=== PATIENT | female | born 1945 | race African-American/Black ===

== ENCOUNTER 2016-05-23 11:53 | Inpatient (IN) | payer MEDICARE, MEDICAID ==
[~2016-05-23] VITALS: Ht 157.5 cm; Wt 67.6 kg
[~2016-05-23 11:53] MED LIST: AMLODIPINE BESYL5 MG ORAL; APRESOLINE50 MG ORAL; ASPIRIN EC81 MG ORAL; ATIVAN1 MG ORAL; AUGMENTIN 875-1 EAC1 ORAL; CATAPRES0.1 MG ORAL; CLONIDINE 0.2M0.2 MG GT; DILAUDID2 MG ORAL; DIOVAN160 MG ORAL; HYDRALAZINE HC100 MG PO; HYDRALAZINE HCL10 MG ORAL; HYDROCHLOROTH12.5 M2 ORAL; HYDROCHLOROTHIA25 MG ORAL; HYDROCODON-ACE1 EAC4 ORAL; JANUVIA25 MG ORAL; JANUVIA50 MG PO; LORAZEPAM1 MG ORAL; LOSARTAN POTAS100 MG ORAL; METOPROLOL SUCC25 MG ORAL; METOPROLOL TAR100 MG ORAL; NORVASC10 MG ORAL; NORVASC2.5 MG ORAL; NORVASC5 MG ORAL; REGLAN10 MG ORAL; RENAGEL400 MG ORAL; TRAMADOL HCL50 MG ORAL; UNOBMED; VANCOMYCIN1 GM/2502 IVPB; [UNRECOGNIZED DRUG - REMARK]
--- NOTE | 2016-05-23 12:47 | Emergency Room Report ---
History of Present Illness General Chief Complaint: Upper Extremity Injury Source: Patient Present Illness HPI The patient is a 70-year-old female with a history of end-stage renal disease presenting for right arm shunt swelling. The pt was at dialysis today which was completed and told to come to ER for possible infection of R arm. The pt denies any pain to the area and denies fever, chills, fatigue, dizziness, CP, SOB Allergies: Coded Allergies: No Known Allergies (Verified , 05/25/09) Patient History Past Medical History: see triage record Pertinent Family History: none Last Menstrual Period: na Reviewed Nursing Documentation: PMH: Agreed, PSxH: Agreed Nursing Documentation-PMH Past Medical History: No History, Except For Hx Cardiac Problems: Yes - Acute coronary syndrome Hx Hypertension: Yes Hx Pacemaker: No Hx Asthma: No Hx COPD: No Hx Diabetes: Yes Hx Cancer: No Hx Gastrointestinal Problems: Yes Hx Dialysis: Yes Hx Neurological Problems: Yes Hx Cerebrovascular Accident: No - KIDNEY FAILURE Hx Transient Ischemic Attacks: Yes Hx Seizures: No Hx Dizziness: Yes Hx Syncope: Yes Hx Headaches: Yes Hx Weakness: Yes - BILATERAL LOWER EXTREMITIES Hx Fatigue: Yes Hx Neurologic Surgery: No Hx Brain Shunt: No Review of Systems All Other Systems: negative except mentioned in HPI Physical Exam Vital Signs Date Time Temp Pulse Resp B/P Pulse Ox O2 Delivery O2 Flow Rate FiO2 05/23/16 12:04 97.5 103 22 191/93 94 Room Air Sp02 EP Interpretation: reviewed, normal General Appearance: no apparent distress, alert, GCS 15, non-toxic Head: normocephalic, atraumatic Eyes: bilateral eye PERRL, bilateral eye normal inspection ENT: hearing grossly normal, normal pharynx, no angioedema, normal voice Neck: full range of motion, supple/symm/no masses Respiratory: chest non-tender, lungs clear, normal breath sounds, speaking full sentences Cardiovascular #1: regular rate, rhythm, no edema Gastrointestinal: normal bowel sounds, non tender, soft, non-distended, no guarding, no rebound Musculoskeletal: back normal, gait/station normal, normal range of motion, non- tender Neurologic: alert, oriented x3, responsive, motor strength/tone normal, sensory intact, speech normal Psychiatric: judgement/insight normal, memory normal, mood/affect normal, no suicidal/homicidal ideation Skin: warm/dry, well hydrated, normal turgor, other - R arm: shunt in place. + thrill. Erythema and edema surround shunt Medical Decision Making PA Attestation Dr. Voss is my supervising physician. Patient management was discussed with my supervising physician Diagnostic Impression: Primary Impression: Cellulitis ER Course The patient is a 70-year-old female with a history of end-stage renal disease presenting for right arm shunt swelling. The pt was at dialysis today which was completed and told to come to ER for possible infection of R arm. The pt denies any pain to the area and denies fever, chills, fatigue, dizziness, CP, SOB Ddx considered include but not limited to Cellulitis, DVT, abscess PE: Afebrile. NAD R arm: shunt in place. + thrill. Erythema and edema surround shunt. SILT. TTP distal to shunt. Labs: CBC: No leukocytosis. Mild anemia. CMP consistent with ESRD. Unremarkable. Cardiac enzymes negative Venous duplex unremarkable. CXR unremarkable. Shunt site will be cultured. Pt given unasyn and will be admitted in stable condition Laboratory Tests Test 05/23/16 13:40 White Blood Count 2.9 K/UL (4.8-10.8) L Red Blood Count 3.35 M/UL (4.20-5.40) L Hemoglobin 9.7 G/DL (12.0-16.0) L Hematocrit 32.6 % (37.0-47.0) L Mean Corpuscular Volume 97 FL (80-99) Mean Corpuscular Hemoglobin 28.9 PG (27.0-31.0) Mean Corpuscular Hemoglobin Concent 29.7 G/DL (32.0-36.0) L Red Cell Distribution Width 19.3 % (11.6-14.8) H Platelet Count 125 K/UL (150-450) L Mean Platelet Volume 7.7 FL (6.5-10.1) Neutrophils (%) (Auto) % (45.0-75.0) Lymphocytes (%) (Auto) % (20.0-45.0) Monocytes (%) (Auto) % (1.0-10.0) Eosinophils (%) (Auto) % (0.0-3.0) Basophils (%) (Auto) % (0.0-2.0) Differential Total Cells Counted 100 Neutrophils % (Manual) 61 % (45-75) Lymphocytes % (Manual) 26 % (20-45) Monocytes % (Manual) 11 % (1-10) H Eosinophils % (Manual) 1 % (0-3) Basophils % (Manual) 0 % (0-2) Band Neutrophils 1 % (0-8) Platelet Estimate Decreased L Platelet Morphology Normal Hypochromasia 1+ Anisocytosis 1+ Sodium Level 139 mEQ/L (135-145) Potassium Level 3.9 mEQ/L (3.4-4.9) Chloride Level 98 mEQ/L (98-107) Carbon Dioxide Level 24 mEQ/L (20-30) Anion Gap 17 (5-15) H Blood Urea Nitrogen 12 mg/dL (7-23) Creatinine 3.8 mg/dL (0.5-0.9) H Estimate Glomerular Filtration Rate 14.2 mL/min (>60) Glucose Level 91 mg/dL (74-106) Lactic Acid Level 1.00 mmol/L (0.66-2.22) Calcium Level 9.6 mg/dL (8.6-10.2) Total Bilirubin 0.6 mg/dL (0.0-1.2) Aspartate Amino Transferase (AST) 19 U/L (5-40) Alanine Aminotransferase (ALT) 7 U/L (3-33) Alkaline Phosphatase 80 U/L (35-104) Total Creatine Kinase 37 U/L (26-140) Creatine Kinase MB < 1.5 ng/mL (< 3.8) Creatine Kinase MB Relative Index Troponin I < 0.30 ng/mL (<=0.30) Total Protein 7.3 g/dL (6.6-8.7) Albumin 4.1 g/dL (3.5-5.2) Globulin 3.2 g/dL Albumin/Globulin Ratio 1.2 (1.0-2.7) Lab Results Impression CBC: No leukocytosis. Mild anemia. CMP consistent with ESRD. Unremarkable. Cardiac enzymes negative EKG Diagnostic Results EP Interpretation: NSR. Rate: normal - 89 Rhythm: NSR ST Segments: no acute changes ASA given to the pt in ED: No PA Scribe Text EKG was reviewed and read with my supervising physician. No acute ST segment changes are seen. QT is prolonged. Normal rate and rhythm. Chest X-Ray Diagnostic Results EP Interpretation: Yes Findings: no consolidation, no effusion, no pneumothorax Number of Views: 1 PA Scribe Text I am acting as scribe for my supervising physician. My supervising physician's interpretation of the chest xrays are there is no consolidation, no effusion, no acute cardiopulmonary disease, no pneumothorax Last Vital Signs Date Time Temp Pulse Resp B/P Pulse Ox O2 Delivery O2 Flow Rate FiO2 05/23/16 12:04 97.5 103 22 191/93 94 Room Air Status: improved Disposition: ADMITTED INPATIENT Condition: Improved NOLAN HENDRICKS May 23, 2016 12:46
[2016-05-23 13:53] LABS: MEAN CORPUSCULAR HEMOGLOBIN 28.9 PG (27.0-31.0); MEAN CORPUSCULAR HGB CONC 29.7 G/DL (32.0-36.0); MEAN CORPUSCULAR VOLUME 97 FL (80-99); MEAN PLATELET VOLUME 7.7 FL (6.5-10.1); PLATELET COUNT 125 K/UL (150-450); RED BLOOD COUNT 3.35 M/UL (4.20-5.40); RED CELL DISTRIBUTION WIDTH 19.3 % (11.6-14.8); WHITE BLOOD COUNT 2.9 K/UL (4.8-10.8)
[2016-05-23 14:08] LABS: ALANINE AMINOTRANSFERASE 7 U/L (3-33); ALBUMIN/GLOBULIN RATIO 1.2 (1.0-2.7); ANION GAP 17 (5-15); ASPARTATE AMINO TRANSFERASE 19 U/L (5-40); CALCIUM 9.6 mg/dL (8.6-10.2); CARBON DIOXIDE 24 mEQ/L (20-30); CHLORIDE 98 mEQ/L (98-107); CREATININE 3.8 mg/dL (0.5-0.9); GLOMERULAR FILTRATION RATE 14.2 mL/min (>60); HEMOLYSIS 5; POTASSIUM 3.9 mEQ/L (3.4-4.9); SODIUM 139 mEQ/L (135-145); TOTAL PROTEIN 7.3 g/dL (6.6-8.7)
[2016-05-23 14:09] LABS: ANISOCYTOSIS 1+; BAND NEUTROPHILS % (MANUAL) 1 % (0-8); BASOPHILS % (MANUAL) 0 % (0-2); EOSINOPHILS % (MANUAL) 1 % (0-3); HYPOCHROMASIA 1+; LYMPHOCYTES % (MANUAL) 26 % (20-45); NEUTROPHILS % (MANUAL) 61 % (45-75); PLATELET ESTIMATE DECREASED; PLATELET MORPHOLOGY NORMAL; TOTAL CELLS COUNTED 100; TROPONIN I < 0.30 ng/mL (<=0.30)
[2016-05-23 14:14] VITALS: BP 171/80
[2016-05-23 14:18] LABS: CKMB < 1.5 ng/mL (< 3.8)
[2016-05-23] MEDS ORDERED: UNOBMED (14:29)
[2016-05-23] MEDS ORDERED: HYDROCHLOROTHIA50 MG ORAL (14:29)
--- NOTE | 2016-05-23 14:55 | Diagnostic Imaging Report ---
Indication: Chest Pain Comparison: 08/28/15 A single view chest radiograph was obtained. Findings: There is a stent projected over the SVC. Surgical clips in the right arm. No definite infiltrate or pulmonary vascular congestion identified. The heart is enlarged. The aorta is mildly enlarged consistent with atherosclerotic vascular disease. The bones are osteopenic. Impression: No acute disease
[2016-05-23 15:40] VITALS: BP 162/81
[2016-05-23] MEDS ORDERED: Unasyn 3gm Inj IV ONE (15:45)
[2016-05-23] MEDS ORDERED: Ampicillin/Sulbactam Sod 3 GM in NS 100 ML IVPB ONE (16:00)
[2016-05-23 18:25] VITALS: BP 169/82
[2016-05-23 18:41] VITALS: BP 168/78
[2016-05-23 19:09] VITALS: BP 133/69
--- NOTE | 2016-05-23 19:38 | Cardiac Electrophysiology PN ---
Subjective Subjective [id number] Objective Last 24 Hour Vital Signs Date Time Temp Pulse Resp B/P Pulse Ox O2 Delivery O2 Flow Rate FiO2 05/23/16 19:09 96.6 65 18 133/69 94 Room Air 05/23/16 18:41 98.5 91 14 168/78 91 Room Air 05/23/16 18:25 90 14 169/82 91 Room Air 05/23/16 18:25 98.5 90 14 169/82 91 Room Air 05/23/16 18:16 98.5 86 14 171/80 95 Room Air 05/23/16 15:40 98.5 82 14 162/81 95 Room Air 05/23/16 14:14 98.5 86 14 171/80 95 Room Air 05/23/16 12:04 97.5 103 22 191/93 94 Room Air Laboratory Tests Test 05/23/16 13:40 White Blood Count 2.9 K/UL (4.8-10.8) L Red Blood Count 3.35 M/UL (4.20-5.40) L Hemoglobin 9.7 G/DL (12.0-16.0) L Hematocrit 32.6 % (37.0-47.0) L Mean Corpuscular Volume 97 FL (80-99) Mean Corpuscular Hemoglobin 28.9 PG (27.0-31.0) Mean Corpuscular Hemoglobin Concent 29.7 G/DL (32.0-36.0) L Red Cell Distribution Width 19.3 % (11.6-14.8) H Platelet Count 125 K/UL (150-450) L Mean Platelet Volume 7.7 FL (6.5-10.1) Neutrophils (%) (Auto) % (45.0-75.0) Lymphocytes (%) (Auto) % (20.0-45.0) Monocytes (%) (Auto) % (1.0-10.0) Eosinophils (%) (Auto) % (0.0-3.0) Basophils (%) (Auto) % (0.0-2.0) Differential Total Cells Counted 100 Neutrophils % (Manual) 61 % (45-75) Lymphocytes % (Manual) 26 % (20-45) Monocytes % (Manual) 11 % (1-10) H Eosinophils % (Manual) 1 % (0-3) Basophils % (Manual) 0 % (0-2) Band Neutrophils 1 % (0-8) Platelet Estimate Decreased L Platelet Morphology Normal Hypochromasia 1+ Anisocytosis 1+ Sodium Level 139 mEQ/L (135-145) Potassium Level 3.9 mEQ/L (3.4-4.9) Chloride Level 98 mEQ/L (98-107) Carbon Dioxide Level 24 mEQ/L (20-30) Anion Gap 17 (5-15) H Blood Urea Nitrogen 12 mg/dL (7-23) Creatinine 3.8 mg/dL (0.5-0.9) H Estimat Glomerular Filtration Rate 14.2 mL/min (>60) Glucose Level 91 mg/dL (74-106) Lactic Acid Level 1.00 mmol/L (0.66-2.22) Calcium Level 9.6 mg/dL (8.6-10.2) Total Bilirubin 0.6 mg/dL (0.0-1.2) Aspartate Amino Transf (AST/SGOT) 19 U/L (5-40) Alanine Aminotransferase (ALT/SGPT) 7 U/L (3-33) Alkaline Phosphatase 80 U/L (35-104) Total Creatine Kinase 37 U/L (26-140) Creatine Kinase MB < 1.5 ng/mL (< 3.8) Creatine Kinase MB Relative Index Troponin I < 0.30 ng/mL (<=0.30) Total Protein 7.3 g/dL (6.6-8.7) Albumin 4.1 g/dL (3.5-5.2) Globulin 3.2 g/dL Albumin/Globulin Ratio 1.2 (1.0-2.7) BRITTA FRASER May 23, 2016 19:38
[2016-05-23] MEDS ORDERED: cloNIDine 0.2mg Tab ORAL PRN (19:45)
[2016-05-23 20:00] VITALS: BP 172/92
[2016-05-23] MEDS ORDERED: Acetaminophen 500mg (ES) tab ORAL PRN (20:15)
[2016-05-23] MEDS: NovoLOG Insulin Flexpen SUBQ SCH (21:00)
--- NOTE | 2016-05-23 23:58 | Consultation ---
DATE OF CONSULTATION: 05/23/2016 CARDIOLOGY CONSULTATION REFERRING PHYSICIAN: Gianni Thompson M.D. REASON FOR CONSULTATION: Accelerated hypertension and arm edema. HISTORY OF PRESENT ILLNESS: The patient is a 70-year-old lady with history of hypertension, end-stage renal disease, on hemodialysis, on Sunday, , and Sunday through her right arm shunt, presented when she was at dialysis and completed dialysis and came to the emergency room right arm. The patient denies any chest pain or palpitation or shortness of breath. In the emergency room, the patient's blood pressure was 191/93 and a Cardiology consultation with management of agitation and accelerated hypertension. EKG in the emergency room showed a sinus rhythm with evidence for prolonged QT with a corrected QT of 503 milliseconds. REVIEW OF SYSTEMS: Review of systems was performed and was negative other than what was mentioned in the history of present illness. PAST MEDICAL HISTORY: Include: 1. Hypertension. 2. Diabetes. 3. End-stage renal disease, on hemodialysis. FAMILY HISTORY: Noncontributory. PHYSICAL EXAMINATION: VITAL SIGNS: Blood pressure was 191/93, pulse is 103, respirations 20, and temperature 97.5. HEAD AND NECK: Showed no JVD. LUNGS: Clear. CARDIOVASCULAR: Shows regular S1 and S2 with no gallop or murmur. ABDOMEN: Soft. EXTREMITIES: She has right arm dialysis line, which is swollen. LABORATORY DATA: Labs show a white count of 2.9, hemoglobin 9.2, hematocrit 32.6, and platelet count of 125,000. Sodium 139, potassium 3.9, BUN of 12, creatinine 3.8, and glucose of 91. ASSESSMENT AND PLAN: 1. Accelerated hypertension. We will resume the patient's antihypertensive medications. Add p.r.n. clonidine to her medical regimen. The patient was on metoprolol 100 mg twice a day, that will be resumed and she is also on 50 mg every eight hours and clonidine 0.1 mg every six hours and Norvasc 10 mg daily. 2. End-stage renal disease, on hemodialysis. 3. Right arm edema, has cellulitis. Antibiotics per infectious disease. 4. Anemia, secondary to renal failure. Thank you very much, Dr. Thompson, for allowing me to participate in the care of this patient. Please do not hesitate to contact me if you have any questions regarding my evaluation. The case was discussed with the patient and nurse on the floor. Sharath Burdick M.D. DR: CATALINA JOB#: [id number] CC:
[2016-05-24 00:18] VITALS: BP 143/74
[2016-05-24] MEDS: HydrALAZINE 50mg tab ORAL SCH ×4 (01:04→19:43)
[2016-05-24] MEDS ORDERED: Zolpidem 5mg tab ORAL PRN (03:15)
[2016-05-24 04:13] VITALS: BP 130/70
[2016-05-24] MEDS: NovoLOG Insulin Flexpen SUBQ SCH ×4 (06:30→22:18)
[2016-05-24] MEDS: Renagel 400mg cap ORAL SCH ×3 (06:55→16:43)
[2016-05-24 07:41] LABS: CALCIUM 9.7 mg/dL (8.6-10.2); CREATININE 5.1 mg/dL (0.5-0.9); GLOMERULAR FILTRATION RATE 10.2 mL/min (>60); POTASSIUM 4.7 mEQ/L (3.4-4.9)
[2016-05-24 07:49] LABS: MEAN CORPUSCULAR HEMOGLOBIN 28.8 PG (27.0-31.0); MEAN CORPUSCULAR HGB CONC 29.5 G/DL (32.0-36.0); MEAN CORPUSCULAR VOLUME 98 FL (80-99); MEAN PLATELET VOLUME 8.3 FL (6.5-10.1); PLATELET COUNT 122 K/UL (150-450); RED CELL DISTRIBUTION WIDTH 18.8 % (11.6-14.8); WHITE BLOOD COUNT 2.3 K/UL (4.8-10.8)
[2016-05-24 08:00] VITALS: BP 130/71
--- NOTE | 2016-05-24 08:58 | Cardiac Electrophysiology PN ---
Assessment/Plan Assessment/Plan 1. Accelerated hypertension. Continue metoprolol 100 mg twice a day, Norvasc 10 mg daily, Hydralazine 50 q6hr, HD and prn Clonidine. 2. End-stage renal disease, on hemodialysis. 3. Right arm edema, has cellulitis. Antibiotics per infectious disease. 4. Anemia, secondary to renal failure. YULI RN Subjective Subjective Alert in NAD. Getting Echo done. Still has diarrhea.Off tele. Objective Last 24 Hour Vital Signs Date Time Temp Pulse Resp B/P Pulse Ox O2 Delivery O2 Flow Rate FiO2 05/24/16 08:41 65 130/71 05/24/16 08:40 65 130/71 05/24/16 08:00 98.1 65 17 130/71 96 Room Air 05/24/16 06:55 130/70 05/24/16 04:13 98.6 62 19 130/70 95 Room Air 05/24/16 01:04 143/74 05/24/16 00:18 98.8 71 17 143/74 97 Room Air 05/23/16 21:58 96 172/92 05/23/16 20:00 96.8 96 20 172/92 97 Room Air 05/23/16 19:09 96.6 65 18 133/69 94 Room Air 05/23/16 18:41 98.5 91 14 168/78 91 Room Air 05/23/16 18:25 90 14 169/82 91 Room Air 05/23/16 18:25 98.5 90 14 169/82 91 Room Air 05/23/16 18:16 98.5 86 14 171/80 95 Room Air 05/23/16 15:40 98.5 82 14 162/81 95 Room Air 05/23/16 14:14 98.5 86 14 171/80 95 Room Air 05/23/16 12:04 97.5 103 22 191/93 94 Room Air Intake and Output 05/23/16 05/24/16 19:00 07:00 Intake Total 100 ml 240 ml Balance 100 ml 240 ml Intake Oral 240 ml IV Total 100 ml # Bowel Movements 2 Laboratory Tests Test 05/23/16 13:40 05/24/16 06:10 White Blood Count 2.9 K/UL (4.8-10.8) L 2.3 K/UL (4.8-10.8) L Red Blood Count 3.35 M/UL (4.20-5.40) L 3.40 M/UL (4.20-5.40) L Hemoglobin 9.7 G/DL (12.0-16.0) L 9.8 G/DL (12.0-16.0) L Hematocrit 32.6 % (37.0-47.0) L 33.3 % (37.0-47.0) L Mean Corpuscular Volume 97 FL (80-99) 98 FL (80-99) Mean Corpuscular Hemoglobin 28.9 PG (27.0-31.0) 28.8 PG (27.0-31.0) Mean Corpuscular Hemoglobin Concent 29.7 G/DL (32.0-36.0) L 29.5 G/DL (32.0-36.0) L Red Cell Distribution Width 19.3 % (11.6-14.8) H 18.8 % (11.6-14.8) H Platelet Count 125 K/UL (150-450) L 122 K/UL (150-450) L Mean Platelet Volume 7.7 FL (6.5-10.1) 8.3 FL (6.5-10.1) Neutrophils (%) (Auto) % (45.0-75.0) % (45.0-75.0) Lymphocytes (%) (Auto) % (20.0-45.0) % (20.0-45.0) Monocytes (%) (Auto) % (1.0-10.0) % (1.0-10.0) Eosinophils (%) (Auto) % (0.0-3.0) % (0.0-3.0) Basophils (%) (Auto) % (0.0-2.0) % (0.0-2.0) Differential Total Cells Counted 100 Neutrophils % (Manual) 61 % (45-75) Pending Lymphocytes % (Manual) 26 % (20-45) Pending Monocytes % (Manual) 11 % (1-10) H Eosinophils % (Manual) 1 % (0-3) Basophils % (Manual) 0 % (0-2) Band Neutrophils 1 % (0-8) Platelet Estimate Decreased L Pending Platelet Morphology Normal Pending Hypochromasia 1+ Anisocytosis 1+ Sodium Level 139 mEQ/L (135-145) 142 mEQ/L (135-145) Potassium Level 3.9 mEQ/L (3.4-4.9) 4.7 mEQ/L (3.4-4.9) Chloride Level 98 mEQ/L (98-107) 101 mEQ/L (98-107) Carbon Dioxide Level 24 mEQ/L (20-30) 25 mEQ/L (20-30) Anion Gap 17 (5-15) H 16 (5-15) H Blood Urea Nitrogen 12 mg/dL (7-23) 18 mg/dL (7-23) Creatinine 3.8 mg/dL (0.5-0.9) H 5.1 mg/dL (0.5-0.9) H Estimat Glomerular Filtration Rate 14.2 mL/min (>60) 10.2 mL/min (>60) Glucose Level 91 mg/dL (74-106) 72 mg/dL (74-106) L Lactic Acid Level 1.00 mmol/L (0.66-2.22) Calcium Level 9.6 mg/dL (8.6-10.2) 9.7 mg/dL (8.6-10.2) Total Bilirubin 0.6 mg/dL (0.0-1.2) Aspartate Amino Transf (AST/SGOT) 19 U/L (5-40) Alanine Aminotransferase (ALT/SGPT) 7 U/L (3-33) Alkaline Phosphatase 80 U/L (35-104) Total Creatine Kinase 37 U/L (26-140) Creatine Kinase MB < 1.5 ng/mL (< 3.8) Creatine Kinase MB Relative Index Troponin I < 0.30 ng/mL (<=0.30) Total Protein 7.3 g/dL (6.6-8.7) Albumin 4.1 g/dL (3.5-5.2) Globulin 3.2 g/dL Albumin/Globulin Ratio 1.2 (1.0-2.7) Thyroid Stimulating Hormone (TSH) 3.540 uIU/mL (0.300-4.500) Objective HEAD AND NECK: Showed no JVD. LUNGS: Clear. CARDIOVASCULAR: Shows regular S1 and S2 with no gallop or murmur. ABDOMEN: Soft. EXTREMITIES: She has right arm dialysis line is swollen. BRITTA FRASER May 24, 2016 08:57
[2016-05-24 09:11] LABS: ANISOCYTOSIS 1+; BAND NEUTROPHILS % (MANUAL) 0 % (0-8); BASOPHILS % (MANUAL) 0 % (0-2); EOSINOPHILS % (MANUAL) 1 % (0-3); HYPOCHROMASIA 1+; LYMPHOCYTES % (MANUAL) 29 % (20-45); NEUTROPHILS % (MANUAL) 65 % (45-75); PLATELET ESTIMATE ADEQUATE; PLATELET MORPHOLOGY NORMAL; TOTAL CELLS COUNTED 100
[2016-05-24] MEDS ORDERED: Loperamide 2mg cap ORAL PRN (10:30)
[2016-05-24] MEDS ORDERED: HYDROmorphone 1mg/ml Carpuject IVP PRN (10:30)
--- NOTE | 2016-05-24 11:22 | History and Physical ---
History of Present Illness General Date patient seen: May 24, 2016 Reason for Hospitalization: Right Upper Extremity cellulitis Present Illness HPI Pt is a 70 yr old AA female who presented to the ED with right arm swelling, after hemodialysis yesterday through the right arm shunt. History includes hypertension, end-stage renal disease, on hemodialysis, every Sunday, , and Saturdays. The patient denies any chest pain or palpitation or shortness of breath, denies fever or chills, no N/ V. Allergies: Coded Allergies: No Known Allergies (Verified , 05/25/09) Medication History Scheduled Amlodipine Besylate (Norvasc), 10 MG ORAL DAILY Clonidine Hcl* (Catapres*), Unknown Dose ORAL EVERY 6 HOURS, (Reported) Hydralazine HCl (Hydralazine HCl), 50 MG ORAL Q8HR Hydrochlorothiazide* (Hydrochlorothiazide*), 50 MG ORAL DAILY, (Reported) Metoprolol Tartrate* (Metoprolol Tartrate*), 50 MG ORAL Q12HR Sevelamer HCl (Renagel), 400 MG ORAL THREE TIMES A DAY, (Reported) Miscellaneous Medications Unable to Obtain Medications (Unable To Obtain Meds), (Reported) Patient History History Provided By: Patient, Medical Record Healthcare decision maker Resuscitation status Do Not Resuscitate Advanced Directive on File Past Medical/Surgical History Past Medical/Surgical History: (1) Hypertension (2) ESRD (end stage renal disease) on dialysis (3) Hypertension (4) ACS (acute coronary syndrome) Social History Social History: (1) Non-smoker (2) No illicit drug use (3) No history of alcohol use Review of Systems All Other Systems: negative except mentioned in HPI Physical Exam General Appearance: no apparent distress, alert Lines, tubes and drains: peripheral HEENT: normocephalic, atraumatic Neck: normal alignment, supple, normal inspection Respiratory/Chest: lungs clear, normal breath sounds, no respiratory distress, no accessory muscle use Cardiovascular/Chest: normal rate, regular rhythm, no JVD Abdomen: non tender, soft, no organomegaly, no mass Extremities: normal range of motion, severe edema, other - right upper arm edema Skin Exam: normal pigmentation, warm/dry Neurologic: alert, oriented x 3, responsive, normal mood/affect Last 24 Hour Vital Signs Date Time Temp Pulse Resp B/P Pulse Ox O2 Delivery O2 Flow Rate FiO2 1/11/17 08:41 65 130/71 05/24/16 08:40 65 130/71 05/24/16 08:00 98.1 65 17 130/71 96 Room Air 05/24/16 06:55 130/70 05/24/16 04:13 98.6 62 19 130/70 95 Room Air 05/24/16 01:04 143/74 05/24/16 00:18 98.8 71 17 143/74 97 Room Air 05/23/16 21:58 96 172/92 05/23/16 20:00 96.8 96 20 172/92 97 Room Air 05/23/16 19:09 96.6 65 18 133/69 94 Room Air 05/23/16 18:41 98.5 91 14 168/78 91 Room Air 05/23/16 18:25 90 14 169/82 91 Room Air 05/23/16 18:25 98.5 90 14 169/82 91 Room Air 05/23/16 18:16 98.5 86 14 171/80 95 Room Air 05/23/16 15:40 98.5 82 14 162/81 95 Room Air 05/23/16 14:14 98.5 86 14 171/80 95 Room Air 05/23/16 12:04 97.5 103 22 191/93 94 Room Air Intake and Output 05/23/16 05/24/16 19:00 07:00 Intake Total 100 ml 240 ml Balance 100 ml 240 ml Intake Oral 240 ml IV Total 100 ml # Bowel Movements 2 Laboratory Tests Test 05/23/16 13:40 05/24/16 06:10 White Blood Count 2.9 K/UL (4.8-10.8) L 2.3 K/UL (4.8-10.8) L Red Blood Count 3.35 M/UL (4.20-5.40) L 3.40 M/UL (4.20-5.40) L Hemoglobin 9.7 G/DL (12.0-16.0) L 9.8 G/DL (12.0-16.0) L Hematocrit 32.6 % (37.0-47.0) L 33.3 % (37.0-47.0) L Mean Corpuscular Volume 97 FL (80-99) 98 FL (80-99) Mean Corpuscular Hemoglobin 28.9 PG (27.0-31.0) 28.8 PG (27.0-31.0) Mean Corpuscular Hemoglobin Concent 29.7 G/DL (32.0-36.0) L 29.5 G/DL (32.0-36.0) L Red Cell Distribution Width 19.3 % (11.6-14.8) H 18.8 % (11.6-14.8) H Platelet Count 125 K/UL (150-450) L 122 K/UL (150-450) L Mean Platelet Volume 7.7 FL (6.5-10.1) 8.3 FL (6.5-10.1) Neutrophils (%) (Auto) % (45.0-75.0) % (45.0-75.0) Lymphocytes (%) (Auto) % (20.0-45.0) % (20.0-45.0) Monocytes (%) (Auto) % (1.0-10.0) % (1.0-10.0) Eosinophils (%) (Auto) % (0.0-3.0) % (0.0-3.0) Basophils (%) (Auto) % (0.0-2.0) % (0.0-2.0) Differential Total Cells Counted 100 100 Neutrophils % (Manual) 61 % (45-75) 65 % (45-75) Lymphocytes % (Manual) 26 % (20-45) 29 % (20-45) Monocytes % (Manual) 11 % (1-10) H 5 % (1-10) Eosinophils % (Manual) 1 % (0-3) 1 % (0-3) Basophils % (Manual) 0 % (0-2) 0 % (0-2) Band Neutrophils 1 % (0-8) 0 % (0-8) Platelet Estimate Decreased L Adequate Platelet Morphology Normal Normal Hypochromasia 1+ 1+ Anisocytosis 1+ 1+ Sodium Level 139 mEQ/L (135-145) 142 mEQ/L (135-145) Potassium Level 3.9 mEQ/L (3.4-4.9) 4.7 mEQ/L (3.4-4.9) Chloride Level 98 mEQ/L (98-107) 101 mEQ/L (98-107) Carbon Dioxide Level 24 mEQ/L (20-30) 25 mEQ/L (20-30) Anion Gap 17 (5-15) H 16 (5-15) H Blood Urea Nitrogen 12 mg/dL (7-23) 18 mg/dL (7-23) Creatinine 3.8 mg/dL (0.5-0.9) H 5.1 mg/dL (0.5-0.9) H Estimat Glomerular Filtration Rate 14.2 mL/min (>60) 10.2 mL/min (>60) Glucose Level 91 mg/dL (74-106) 72 mg/dL (74-106) L Lactic Acid Level 1.00 mmol/L (0.66-2.22) Calcium Level 9.6 mg/dL (8.6-10.2) 9.7 mg/dL (8.6-10.2) Total Bilirubin 0.6 mg/dL (0.0-1.2) Aspartate Amino Transf (AST/SGOT) 19 U/L (5-40) Alanine Aminotransferase (ALT/SGPT) 7 U/L (3-33) Alkaline Phosphatase 80 U/L (35-104) Total Creatine Kinase 37 U/L (26-140) Creatine Kinase MB < 1.5 ng/mL (< 3.8) Creatine Kinase MB Relative Index Troponin I < 0.30 ng/mL (<=0.30) Total Protein 7.3 g/dL (6.6-8.7) Albumin 4.1 g/dL (3.5-5.2) Globulin 3.2 g/dL Albumin/Globulin Ratio 1.2 (1.0-2.7) Thyroid Stimulating Hormone (TSH) 3.540 uIU/mL (0.300-4.500) Microbiology Date/Time Source Procedure Growth Status 05/23/16 15:23 Wound Gram Stain - Final Resulted 05/23/16 15:23 Wound Wound Culture Pending Resulted Height (Feet): 5 Height (Inches): 2.00 Weight (Pounds): 110 Medications Current Medications Medications (Trade) Dose Ordered Sig/Celine Route PRN Reason Start Time Stop Time Status Last Admin Dose Admin Acetaminophen (Tylenol) 500 mg QID PRN ORAL Mild Pain/Temp > 100.5 05/23/16 20:15 06/22/16 20:14 05/23/16 21:58 Amlodipine Besylate (Norvasc) 10 mg DAILY ORAL 05/24/16 09:00 06/23/16 08:59 05/24/16 08:40 Clonidine HCl (Catapres) 0.2 mg EVERY 2 HOURS PRN ORAL hypertension 05/23/16 19:45 06/22/16 19:44 Dextrose (Dextrose 50%) STAT PRN IV Hypoglycemia 05/23/16 20:15 06/22/16 20:14 Hydralazine HCl (Apresoline) 50 mg Q6HR ORAL 05/24/16 00:00 06/23/16 00:00 05/24/16 06:55 Hydromorphone HCl (Dilaudid) 1 mg Q4H PRN IVP For Pain 05/24/16 10:30 05/31/16 10:29 Insulin Aspart (NovoLOG) BEFORE MEALS AND HS SUBQ 05/23/16 21:00 06/22/16 20:59 Loperamide HCl (Imodium) 4 mg Q6H PRN ORAL diarrhea 05/24/16 10:30 06/23/16 10:29 Metoprolol Tartrate (Lopressor) 100 mg EVERY 12 HOURS ORAL 05/23/16 21:00 06/22/16 20:59 05/24/16 08:41 Sevelamer HCl (Renagel) 400 mg TIAC ORAL 05/24/16 06:30 06/23/16 06:29 05/24/16 06:55 Zolpidem Tartrate (Ambien) 5 mg HSPRN PRN ORAL Insomnia 05/24/16 03:15 06/23/16 03:14 Objective Narrative Procedure: XRAY Chest 1v Indication: Chest Pain Comparison: 08/28/15 A single view chest radiograph was obtained. Findings: There is a stent projected over the SVC. Surgical clips in the right arm. No definite infiltrate or pulmonary vascular congestion identified. The heart is enlarged. The aorta is mildly enlarged consistent with atherosclerotic vascular disease. The bones are osteopenic. Impression: No acute disease Assessment/Plan Problem List: (1) AV fistula infection ICD Codes: T82.7XXA - Infect/inflm react d/t oth cardi/vasc dev/implnt/grft, init SNOMED: 384459748 (2) Cellulitis ICD Codes: L03.90 - Cellulitis, unspecified SNOMED: 802532961 Qualifiers: (3) ESRD (end stage renal disease) on dialysis ICD Codes: N18.6 - End stage renal disease; Z99.2 - Dependence on renal dialysis SNOMED: 002277925 (4) Accelerated hypertension ICD Codes: I10 - Essential (primary) hypertension SNOMED: 20441046 (5) Thrombocytopenia ICD Codes: D69.6 - Thrombocytopenia, unspecified SNOMED: 959053450 (6) Anemia in chronic kidney disease (CKD) ICD Codes: D63.1 - Anemia in chronic kidney disease; N03.9 - Anemia in chronic kidney disease (CKD) SNOMED: 364414647 Status: stable Assessment/Plan Monitor counts ID consult, will f/u with recs Monitor Vital signs Monitor H&H, transfuse as needed Cardio consult, will f/u with recs Continue home meds Will continue HD T,TH,S pain management Faith Bianchi N.P. May 24, 2016 11:22
[2016-05-24 12:15] VITALS: BP 145/83
[2016-05-24] MEDS: Morphine Sulfate 2mg/ml Inj IVP PRN (13:12)
--- NOTE | 2016-05-24 14:59 | Consultation ---
Consult Note Consult Note ID CONSULT: Dict# [id number] Assessment/Plan ASSESSMENT: 70 y/o female with: // RUE swelling r/o cellulitis, AVF infection - BCx pending - doppler: patent AVF, no stenosis, occlusion, pseudoaneurysm or abscess // Chronic leukopenia / pancytopenia, afebrile // ESRD / HD with RUE AVF // Accelerated HTN // Negative MRSA, VRE screens // NKDA // DNR PLAN: - start empiric IV vancomycin, fortaz d# . Ok to dose with HD, complete as outpt unless BCx positive, will need further w/u ( 05/23 SP unasyn x1 ) - consider vascular eval - f/u cultures - monitor CBC, temperatures - monitor BMP Thanks! Will follow MARLON BYRNES May 24, 2016 14:59
[2016-05-24 16:00] VITALS: BP 156/81
[2016-05-24] MEDS ORDERED: Vancomycin 1gm/D5W 250ml IVPB ONE ×2 (17:00)
[2016-05-24 20:00] VITALS: BP 147/71
--- NOTE | 2016-05-24 21:37 | Cardiology Report ---
APPROVED REPORT EXAM: Two-dimensional and M-mode echocardiogram with Doppler and color Doppler. INDICATION Congestive Heart Failure M-Mode DIMENSIONS IVSd1.8 (0.7-1.1cm)Left Atrium (MM)3.4 (1.6-4.0cm) LVDd3.9 (3.5-5.6cm)Aortic Root3.1 (2.0-3.7cm) PWd1.7 (0.7-1.1cm)Aortic Cusp Exc.1.6 (1.5-2.0cm) LVDs2.7 (2.5-4.0cm) PWs2.0 cm Technically difficult study due to pts position. Normal left ventricular chamber size, systolic function and wall motion to extent visualized. Left ventricular ejection fraction estimated to be 60-65 %. Moderate left ventricular hypertrophy. Anterior Echo-free space, may be due to pericardial fat or effusion. Mild left atrial enlargement. Right cardiac chambers are moderately enlarged. Moderate focal aortic valve sclerosis with adequate cusp excursion. Moderately thickened mitral valve leaflets with normal excursion. Mitral annulus and aortic root calcification. Normal pulmonic valve structure. Normal tricuspid valve structure. IVC dilated at 2.9 cm without physiologic collapse suggestive of RA pressure at least 20 mmHg. A color flow and spectral Doppler study was performed and revealed: Trace aortic regurgitation. Mild mitral regurgitation. Mitral diastolic velocities suggest reduced left ventricular relaxation c/w mild LV diastolic dysfunction (Grade I ). Severe tricuspid regurgitation. Tricuspid systolic velocities suggests peak right ventricular systolic pressure of 99 mmHg, consistent with severe pulmonary hypertension.
--- NOTE | 2016-05-24 21:48 | Consultation ---
DATE OF CONSULTATION: 05/24/2016 INFECTIOUS DISEASE CONSULTATION REQUESTING PHYSICIAN: Gianni Thompson M.D. REASON FOR CONSULTATION: Cellulitis. HISTORY OF PRESENT ILLNESS: This is a 70-year-old female with a history of end-stage renal disease, on dialysis with a right upper extremity fistula referred to emergency room from the dialysis center for right upper extremity swelling. This is fairly acute as per patient. No significant erythema or warmth. Denies fevers or chills. Doppler ultrasound shows a patent fistula and no stenosis occlusion, pseudoaneurysm, or abscess. She has evidence of chronic leukopenia and pancytopenia and is afebrile. Cultures are pending. She has received one dose of Unasyn in the emergency room and ID now consulted to assist in management. PAST MEDICAL HISTORY: 1. Hypertension. 2. End-stage renal disease, on dialysis. 3. Grade 1 diastolic dysfunction. 4. Severe tricuspid regurgitation. 5. Mild pulmonary hypertension. 6. Cardiovascular disease. PAST SURGICAL HISTORY: Right upper extremity AV fistula. MEDICATIONS: 1. Status post Unasyn x1. 2. Norvasc. 3. Renagel. 4. Hydralazine. 5. Metoprolol. ALLERGIES: No known drug allergies. SOCIAL HISTORY: Denies tobacco, alcohol, or illicit drug abuse. FAMILY HISTORY: Noncontributory. REVIEW OF SYSTEMS: As per history of present illness. Ten systems reviewed. All pertinent positives and negatives noted. PHYSICAL EXAMINATION: VITAL SIGNS: Maximum temperature 98.5, blood pressure 145/83, heart rate in the 70s, respiratory rate 17, saturating 96% on room air. GENERAL: No apparent distress. Nontoxic appearing. CARDIOVASCULAR: Regular rate and rhythm. No murmurs. PULMONARY: Clear to auscultation bilaterally. ABDOMEN: Bowel sounds present. Soft, nondistended, and nontender. EXTREMITIES: Right upper extremity swelling. No significant erythema or warmth. LABORATORY DATA: White blood cell count 2.3, hemoglobin 9.8, platelets 122,000. Sodium 142, potassium 4.7, chloride 101, bicarbonate 25, BUN 18, creatinine 5.1. Lactic acid 1. Troponin negative x1. TSH and liver function tests within normal limits. MICROBIOLOGY: 1. 05/23/2016, blood culture pending. 2. 05/23/2016, right upper extremity wound culture no growth to date, Gram-stain negative. IMAGIN05/23/2016, chest x-ray no acute findings. ASSESSMENT: 1. Right upper extremity swelling rule out cellulitis of the arteriovenous fistula infection. Blood cultures are pending. Doppler ultrasounds shows patent AV fistula and no stenosis, occlusion, pseudoaneurysm, or abscess. 2. Chronic leukopenia/pancytopenia, afebrile. 3. End-stage renal disease, on dialysis with right upper extremity arteriovenous fistula. 4. Accelerated hypertension. 5. Negative methicillin-resistant Staphylococcus aureus and vancomycin-resistant Enterococcus screens. 6. No known drug allergies. 7. Do Not Resuscitate. PLAN: 1. Start empiric IV vancomycin and Fortaz day # 1 out of 7. 2. Okay to dose with dialysis. 3. Consider vascular evaluation. 4. Followup cultures. 5. Monitor CBC and temperatures. 6. Monitor BMP. Thank you. We will follow. Ron Perez M.D. DR: Nagi JOB#: [id number] CC: Gianni Thompson M.D.; Fax#: [phone] King M.D; Fax#: [phone]
[2016-05-25 00:09] VITALS: BP 140/81
[2016-05-25] MEDS: HydrALAZINE 50mg tab ORAL SCH ×5 (00:43→23:39)
[2016-05-25 04:06] VITALS: BP 144/66
[2016-05-25] MEDS: NovoLOG Insulin Flexpen SUBQ SCH ×4 (06:30→20:16)
[2016-05-25] MEDS: Renagel 400mg cap ORAL SCH ×3 (06:40→16:53)
[2016-05-25 08:00] VITALS: BP 145/76
[2016-05-25 10:53] LABS: MEAN CORPUSCULAR HEMOGLOBIN 29.5 PG (27.0-31.0); MEAN CORPUSCULAR HGB CONC 31.1 G/DL (32.0-36.0); MEAN CORPUSCULAR VOLUME 95 FL (80-99); MEAN PLATELET VOLUME 7.9 FL (6.5-10.1); PLATELET COUNT 151 K/UL (150-450); RED BLOOD COUNT 3.68 M/UL (4.20-5.40); WHITE BLOOD COUNT 3.3 K/UL (4.8-10.8)
[2016-05-25 11:07] LABS: CALCIUM 9.7 mg/dL (8.6-10.2); CREATININE 6.7 mg/dL (0.5-0.9); GLOMERULAR FILTRATION RATE 7.4 mL/min (>60); POTASSIUM 4.7 mEQ/L (3.4-4.9)
[2016-05-25 11:41] LABS: BAND NEUTROPHILS % (MANUAL) 0 % (0-8); BASOPHILS % (MANUAL) 0 % (0-2); EOSINOPHILS % (MANUAL) 3 % (0-3); LYMPHOCYTES % (MANUAL) 24 % (20-45); NEUTROPHILS % (MANUAL) 65 % (45-75); PLATELET ESTIMATE ADEQUATE; PLATELET MORPHOLOGY NORMAL; TOTAL CELLS COUNTED 100
[2016-05-25 11:42] LABS: ANISOCYTOSIS 2+; HYPOCHROMASIA 1+
[2016-05-25 12:00] VITALS: BP 138/75
--- NOTE | 2016-05-25 13:29 | Infectious Diseases Prog Note ---
Assessment/Plan Assessment/Plan ASSESSMENT: 70 y/o female with: // RUE swelling r/o cellulitis, AVF infection - BCx NGTD - doppler: patent AVF, no stenosis, occlusion, pseudoaneurysm or abscess // Chronic leukopenia / pancytopenia, afebrile // ESRD / HD with RUE AVF // Accelerated HTN // Negative MRSA, VRE screens // NKDA // DNR PLAN: - continue IV vancomycin, fortaz d# . Ok to dose with HD, complete as outpt unless BCx positive, will need further w/u ( 05/23 SP unasyn x1 ) - consider vascular eval - f/u cultures - monitor CBC, temperatures - monitor BMP Subjective Allergies: Coded Allergies: No Known Allergies (Verified , 05/25/09) Subjective remains afebrile. swelling unchanged Objective Vital Signs Last 24 Hour Vital Signs Date Time Temp Pulse Resp B/P Pulse Ox O2 Delivery O2 Flow Rate FiO2 05/25/16 12:00 97.5 17 138/75 93 Room Air 05/25/16 09:00 75 145/76 05/25/16 09:00 75 145/76 05/25/16 08:00 97.3 75 17 145/76 95 Room Air 05/25/16 06:41 142/78 05/25/16 04:06 97.0 71 20 144/66 96 05/25/16 00:43 147/81 05/25/16 00:09 97.0 68 20 140/81 95 Room Air 05/24/16 22:18 74 147/71 05/24/16 20:00 96.4 74 20 147/71 97 Room Air 05/24/16 19:43 156/81 05/24/16 16:00 97.5 72 18 156/81 93 Room Air Height (Feet): 5 Height (Inches): 2.00 Weight (Pounds): 110 General Appearance: no acute distress Respiratory/Chest: no respiratory distress Cardiovascular: normal rate, regular rhythm Abdomen: normal bowel sounds, soft, non tender, non distended Microbiology Date/Time Source Procedure Growth Status 05/23/16 13:40 Blood Blood Culture - Preliminary NO GROWTH AFTER 24 HOURS Resulted 05/23/16 13:30 Blood Blood Culture - Preliminary NO GROWTH AFTER 24 HOURS Resulted 05/23/16 15:23 Wound Gram Stain - Final Resulted 05/23/16 15:23 Wound Wound Culture - Preliminary NO GROWTH AFTER 48 HOURS Resulted 05/23/16 14:11 Nasal Nares MRSA Culture - Final NO METHICILLIN RESISTANT STAPH AUREUS... Complete 05/23/16 14:11 Rectum VRE Culture - Final NO VANCOMYCIN RESISTANT ENTEROCOCCUS ... Complete Laboratory Tests Test 05/25/16 10:35 White Blood Count 3.3 K/UL (4.8-10.8) L Red Blood Count 3.68 M/UL (4.20-5.40) L Hemoglobin 10.9 G/DL (12.0-16.0) L Hematocrit 35.0 % (37.0-47.0) L Mean Corpuscular Volume 95 FL (80-99) Mean Corpuscular Hemoglobin 29.5 PG (27.0-31.0) Mean Corpuscular Hemoglobin Concent 31.1 G/DL (32.0-36.0) L Red Cell Distribution Width 19.0 % (11.6-14.8) H Platelet Count 151 K/UL (150-450) Mean Platelet Volume 7.9 FL (6.5-10.1) Neutrophils (%) (Auto) % (45.0-75.0) Lymphocytes (%) (Auto) % (20.0-45.0) Monocytes (%) (Auto) % (1.0-10.0) Eosinophils (%) (Auto) % (0.0-3.0) Basophils (%) (Auto) % (0.0-2.0) Differential Total Cells Counted 100 Neutrophils % (Manual) 65 % (45-75) Lymphocytes % (Manual) 24 % (20-45) Monocytes % (Manual) 8 % (1-10) Eosinophils % (Manual) 3 % (0-3) Basophils % (Manual) 0 % (0-2) Band Neutrophils 0 % (0-8) Platelet Estimate Adequate Platelet Morphology Normal Hypochromasia 1+ Anisocytosis 2+ Sodium Level 139 mEQ/L (135-145) Potassium Level 4.7 mEQ/L (3.4-4.9) Chloride Level 97 mEQ/L (98-107) L Carbon Dioxide Level 22 mEQ/L (20-30) Anion Gap 20 (5-15) H Blood Urea Nitrogen 24 mg/dL (7-23) H Creatinine 6.7 mg/dL (0.5-0.9) H Estimat Glomerular Filtration Rate 7.4 mL/min (>60) Glucose Level 83 mg/dL (74-106) Calcium Level 9.7 mg/dL (8.6-10.2) Current Medications Medications (Trade) Dose Ordered Sig/Celine Route PRN Reason Start Time Stop Time Status Last Admin Dose Admin Acetaminophen (Tylenol) 500 mg QID PRN ORAL Mild Pain/Temp > 100.5 05/23/16 20:15 06/22/16 20:14 05/23/16 21:58 Amlodipine Besylate (Norvasc) 10 mg DAILY ORAL 05/24/16 09:00 06/23/16 08:59 05/24/16 08:40 Ceftazidime/ Dextrose (Fortaz/D5W 50ml) 55 ml @ 100 mls/hr Q24HRS IVP 05/25/16 18:00 05/31/16 17:59 Clonidine HCl (Catapres) 0.2 mg EVERY 2 HOURS PRN ORAL hypertension 05/23/16 19:45 06/22/16 19:44 Dextrose (Dextrose 50%) STAT PRN IV Hypoglycemia 05/23/16 20:15 06/22/16 20:14 Hydralazine HCl (Apresoline) 50 mg Q6HR ORAL 05/24/16 00:00 06/23/16 00:00 05/25/16 06:41 Insulin Aspart (NovoLOG) BEFORE MEALS AND HS SUBQ 05/23/16 21:00 06/22/16 20:59 Loperamide HCl (Imodium) 4 mg Q6H PRN ORAL diarrhea 05/24/16 10:30 06/23/16 10:29 Metoprolol Tartrate (Lopressor) 100 mg EVERY 12 HOURS ORAL 05/23/16 21:00 06/22/16 20:59 05/24/16 22:18 Morphine Sulfate (Morphine Sulfate) 2 mg Q4H PRN IVP for pain 05/24/16 12:00 05/31/16 11:59 05/24/16 13:12 Sevelamer HCl (Renagel) 400 mg TIAC ORAL 05/24/16 06:30 06/23/16 06:29 05/25/16 11:24 Vancomycin HCl 750 mg/Dextrose 250 ml @ 167 mls/hr ONCE ONCE IVPB 05/26/16 08:00 05/26/16 09:29 Vancomycin HCl 1 ea 1 ea DAILY PRN MISC Per rx protocol 05/24/16 15:15 06/23/16 15:14 Zolpidem Tartrate (Ambien) 5 mg HSPRN PRN ORAL Insomnia 05/24/16 03:15 06/23/16 03:14 MARLON BYRNES May 25, 2016 13:29
--- NOTE | 2016-05-25 15:01 | General Progress Note ---
Assessment/Plan Problem List: (1) Dizziness ICD Codes: R42 - Dizziness and giddiness SNOMED: 914470204 (2) Renal failure (3) Unable to ambulate ICD Codes: R26.2 - Unable to ambulate SNOMED: 255748926 (4) Hypertensive urgency, malignant ICD Codes: I10 - Essential (primary) hypertension SNOMED: 669871528 (5) Dizziness ICD Codes: R42 - Dizziness and giddiness SNOMED: 728257345 (6) ESRD (end stage renal disease) on dialysis ICD Codes: N18.6 - End stage renal disease; Z99.2 - Dependence on renal dialysis SNOMED: 167078233 (7) Diabetes ICD Codes: E11.9 - Diabetes SNOMED: 42826192 (8) Weakness ICD Codes: R53.1 - Weakness SNOMED: 59377980 (9) Cellulitis ICD Codes: L03.90 - Cellulitis, unspecified SNOMED: 197776803 Qualifiers: Status: stable, progressing, tolerating diet Assessment/Plan ot pt diet wound care abx dialysis cbc bmp am Subjective Constitutional: Reports: weakness Allergies: Coded Allergies: No Known Allergies (Verified , 05/25/09) All Systems: reviewed and negative except above Subjective o2nc sleepy Objective Last 24 Hour Vital Signs Date Time Temp Pulse Resp B/P Pulse Ox O2 Delivery O2 Flow Rate FiO2 05/25/16 13:32 138/75 05/25/16 12:00 97.5 17 138/75 93 Room Air 05/25/16 09:00 75 145/76 05/25/16 09:00 75 145/76 05/25/16 08:00 97.3 75 17 145/76 95 Room Air 05/25/16 06:41 142/78 05/25/16 04:06 97.0 71 20 144/66 96 05/25/16 00:43 147/81 05/25/16 00:09 97.0 68 20 140/81 95 Room Air 05/24/16 22:18 74 147/71 05/24/16 20:00 96.4 74 20 147/71 97 Room Air 05/24/16 19:43 156/81 05/24/16 16:00 97.5 72 18 156/81 93 Room Air Intake and Output 05/24/16 05/25/16 19:00 07:00 Intake Total 450 ml 370 ml Balance 450 ml 370 ml Intake Oral 450 ml 120 ml IV Total 250 ml # Voids 1 # Bowel Movements 2 Laboratory Tests 05/25/16 10:35: White Blood Count 3.3L, Red Blood Count 3.68L, Hemoglobin 10.9L, Hematocrit 35.0L, Mean Corpuscular Volume 95, Mean Corpuscular Hemoglobin 29.5, Mean Corpuscular Hemoglobin Concent 31.1L, Red Cell Distribution Width 19.0H, Platelet Count 151, Mean Platelet Volume 7.9, Neutrophils (%) (Auto) , Lymphocytes (%) (Auto) , Monocytes (%) (Auto) , Eosinophils (%) (Auto) , Basophils (%) (Auto) , Differential Total Cells Counted 100, Neutrophils % ( Manual) 65, Lymphocytes % (Manual) 24, Monocytes % (Manual) 8, Eosinophils % ( Manual) 3, Basophils % (Manual) 0, Band Neutrophils 0, Platelet Estimate Adequate, Platelet Morphology Normal, Hypochromasia 1+, Anisocytosis 2+, Sodium Level 139, Potassium Level 4.7, Chloride Level 97L, Carbon Dioxide Level 22, Anion Gap 20H, Blood Urea Nitrogen 24H, Creatinine 6.7H, Estimat Glomerular Filtration Rate 7.4, Glucose Level 83, Calcium Level 9.7 Height (Feet): 5 Height (Inches): 2.00 Weight (Pounds): 110 General Appearance: lethargic EENT: normal ENT inspection Neck: normal alignment Cardiovascular: normal peripheral pulses, normal rate, regular rhythm Respiratory/Chest: chest wall non-tender, lungs clear, normal breath sounds Abdomen: normal bowel sounds, non tender, soft Extremities: normal inspection Edema: no edema noted Arm (L), no edema noted Arm (R), no edema noted Leg (L), no edema noted Leg (R), no edema noted Pedal (L), no edema noted Pedal (R), no edema noted Generalized Neurologic: motor weakness Skin: normal pigmentation, warm/dry ATILIO LOVING May 25, 2016 15:01
[2016-05-25 16:00] VITALS: BP 155/68
--- NOTE | 2016-05-25 16:24 | Cardiac Electrophysiology PN ---
Assessment/Plan Assessment/Plan 1. Accelerated hypertension. On metoprolol 100 mg twice a day, Norvasc 10 mg daily, Hydralazine 50 q6hr, HD and prn Clonidine. 2. End-stage renal disease, on hemodialysis. 3. Right arm edema, has cellulitis. On Antibiotics 4. Anemia, secondary to renal failure. YULI RN Subjective Subjective Alert in NAD.No events overnight. Off tele since admission. Objective Last 24 Hour Vital Signs Date Time Temp Pulse Resp B/P Pulse Ox O2 Delivery O2 Flow Rate FiO2 05/25/16 13:32 138/75 05/25/16 12:00 97.5 17 138/75 93 Room Air 05/25/16 09:00 75 145/76 05/25/16 09:00 75 145/76 05/25/16 08:00 97.3 75 17 145/76 95 Room Air 05/25/16 06:41 142/78 05/25/16 04:06 97.0 71 20 144/66 96 05/25/16 00:43 147/81 05/25/16 00:09 97.0 68 20 140/81 95 Room Air 05/24/16 22:18 74 147/71 05/24/16 20:00 96.4 74 20 147/71 97 Room Air 05/24/16 19:43 156/81 Intake and Output 05/24/16 05/25/16 19:00 07:00 Intake Total 450 ml 370 ml Balance 450 ml 370 ml Intake Oral 450 ml 120 ml IV Total 250 ml # Voids 1 # Bowel Movements 2 Laboratory Tests Test 05/25/16 10:35 White Blood Count 3.3 K/UL (4.8-10.8) L Red Blood Count 3.68 M/UL (4.20-5.40) L Hemoglobin 10.9 G/DL (12.0-16.0) L Hematocrit 35.0 % (37.0-47.0) L Mean Corpuscular Volume 95 FL (80-99) Mean Corpuscular Hemoglobin 29.5 PG (27.0-31.0) Mean Corpuscular Hemoglobin Concent 31.1 G/DL (32.0-36.0) L Red Cell Distribution Width 19.0 % (11.6-14.8) H Platelet Count 151 K/UL (150-450) Mean Platelet Volume 7.9 FL (6.5-10.1) Neutrophils (%) (Auto) % (45.0-75.0) Lymphocytes (%) (Auto) % (20.0-45.0) Monocytes (%) (Auto) % (1.0-10.0) Eosinophils (%) (Auto) % (0.0-3.0) Basophils (%) (Auto) % (0.0-2.0) Differential Total Cells Counted 100 Neutrophils % (Manual) 65 % (45-75) Lymphocytes % (Manual) 24 % (20-45) Monocytes % (Manual) 8 % (1-10) Eosinophils % (Manual) 3 % (0-3) Basophils % (Manual) 0 % (0-2) Band Neutrophils 0 % (0-8) Platelet Estimate Adequate Platelet Morphology Normal Hypochromasia 1+ Anisocytosis 2+ Sodium Level 139 mEQ/L (135-145) Potassium Level 4.7 mEQ/L (3.4-4.9) Chloride Level 97 mEQ/L (98-107) L Carbon Dioxide Level 22 mEQ/L (20-30) Anion Gap 20 (5-15) H Blood Urea Nitrogen 24 mg/dL (7-23) H Creatinine 6.7 mg/dL (0.5-0.9) H Estimat Glomerular Filtration Rate 7.4 mL/min (>60) Glucose Level 83 mg/dL (74-106) Calcium Level 9.7 mg/dL (8.6-10.2) Microbiology Date/Time Source Procedure Growth Status 05/23/16 13:40 Blood Blood Culture - Preliminary NO GROWTH AFTER 24 HOURS Resulted 05/23/16 13:30 Blood Blood Culture - Preliminary NO GROWTH AFTER 24 HOURS Resulted 05/23/16 15:23 Wound Gram Stain - Final Resulted 05/23/16 15:23 Wound Wound Culture - Preliminary NO GROWTH AFTER 48 HOURS Resulted 05/23/16 14:11 Nasal Nares MRSA Culture - Final NO METHICILLIN RESISTANT STAPH AUREUS... Complete 05/23/16 14:11 Rectum VRE Culture - Final NO VANCOMYCIN RESISTANT ENTEROCOCCUS ... Complete Objective HEAD AND NECK: Showed no JVD. LUNGS: Clear. CARDIOVASCULAR: Shows regular S1 and S2 with no gallop or murmur. ABDOMEN: Soft. EXTREMITIES: She has right arm dialysis line is swollen. BRITTA FRASER May 25, 2016 16:24
[2016-05-25] MEDS: Morphine Sulfate 2mg/ml Inj IVP PRN ×2 (17:23→21:39)
[2016-05-25] MEDS ORDERED: Tubing IV Secondary IV ONE (17:43)
[2016-05-25] MEDS ORDERED: [UNRECOGNIZED DRUG - OTHER] IV SCH ×2 (18:00)
[2016-05-25] MEDS ORDERED: CEFTAZIDIME IV SCH ×2 (18:00)
[2016-05-25] MEDS: D5W IVP SCH (18:58)
[2016-05-25] MEDS: CEFTAZIDIME IVP SCH (18:58)
[2016-05-25 20:00] VITALS: BP 133/67
--- NOTE | 2016-05-25 20:33 | Cardiology Report ---
APPROVED REPORT EKG Measurement Heart [id number] Normal sinus rhythm Prolonged QT Abnormal ECG
[2016-05-26] VITALS (7 sets, daily range): BP systolic 124–160; BP diastolic 65–93
[2016-05-26] MEDS: HydrALAZINE 50mg tab ORAL SCH (06:00)
[2016-05-26] MEDS: NovoLOG Insulin Flexpen SUBQ SCH ×4 (06:30→20:44)
[2016-05-26] MEDS: Renagel 400mg cap ORAL SCH ×3 (06:30→16:30)
[2016-05-26] MEDS ORDERED: Vancomycin 750mg/D5W 250ml IVPB ONE ×2 (08:00)
[2016-05-26 08:24] LABS: BASOPHILS % (AUTO) 0.9 % (0.0-2.0); EOSINOPHILS % (AUTO) 1.9 % (0.0-3.0); LYMPHOCYTES % (AUTO) 12.9 % (20.0-45.0); MEAN CORPUSCULAR HEMOGLOBIN 29.4 PG (27.0-31.0); MEAN CORPUSCULAR HGB CONC 30.7 G/DL (32.0-36.0); MEAN CORPUSCULAR VOLUME 96 FL (80-99); MEAN PLATELET VOLUME 8.4 FL (6.5-10.1); MONOCYTES % (AUTO) 12.2 % (1.0-10.0); NEUTROPHILS % (AUTO) 72.1 % (45.0-75.0); PLATELET COUNT 158 K/UL (150-450); RED CELL DISTRIBUTION WIDTH 19.2 % (11.6-14.8); WHITE BLOOD COUNT 4.3 K/UL (4.8-10.8)
--- NOTE | 2016-05-26 08:29 | Nephrology Progress Note ---
Assessment/Plan Problem List: (1) ESRD (end stage renal disease) on dialysis (2) Hypertensive urgency, malignant (3) Weakness (4) Dizziness (5) Diabetes (6) Anemia in chronic kidney disease (CKD) (7) AV fistula infection Plan vasc surg eval. HD as scheduled. monitor labs. Subjective Subjective late entry for 05/25. no new c/o Objective Objective Last 24 Hour Vital Signs Date Time Temp Pulse Resp B/P Pulse Ox O2 Delivery O2 Flow Rate FiO2 05/26/16 04:00 97.5 76 16 160/88 97 Nasal Cannula 2.0 05/26/16 00:00 97.2 70 16 142/80 Nasal Cannula 2.0 99 05/25/16 23:39 142/80 05/25/16 23:36 97 Nasal Cannula 2.0 28 05/25/16 23:36 Nasal Cannula 2.0 28 05/25/16 22:09 96.0 05/25/16 20:21 68 05/25/16 20:00 68 20 133/67 Nasal Cannula 2.0 97 05/25/16 17:22 155/68 05/25/16 16:00 96.0 74 20 155/68 Nasal Cannula 2.0 98 05/25/16 13:32 138/75 05/25/16 12:00 97.5 17 138/75 93 Room Air 05/25/16 09:00 75 145/76 05/25/16 09:00 75 145/76 Intake and Output 05/25/16 05/26/16 19:00 07:00 Intake Total 360 ml 320 ml Balance 360 ml 320 ml Intake Oral 360 ml 320 ml # Voids 3 Laboratory Tests 05/25/16 10:35: White Blood Count 3.3L, Red Blood Count 3.68L, Hemoglobin 10.9L, Hematocrit 35.0L, Mean Corpuscular Volume 95, Mean Corpuscular Hemoglobin 29.5, Mean Corpuscular Hemoglobin Concent 31.1L, Red Cell Distribution Width 19.0H, Platelet Count 151, Mean Platelet Volume 7.9, Neutrophils (%) (Auto) , Lymphocytes (%) (Auto) , Monocytes (%) (Auto) , Eosinophils (%) (Auto) , Basophils (%) (Auto) , Differential Total Cells Counted 100, Neutrophils % ( Manual) 65, Lymphocytes % (Manual) 24, Monocytes % (Manual) 8, Eosinophils % ( Manual) 3, Basophils % (Manual) 0, Band Neutrophils 0, Platelet Estimate Adequate, Platelet Morphology Normal, Hypochromasia 1+, Anisocytosis 2+, Sodium Level 139, Potassium Level 4.7, Chloride Level 97L, Carbon Dioxide Level 22, Anion Gap 20H, Blood Urea Nitrogen 24H, Creatinine 6.7H, Estimat Glomerular Filtration Rate 7.4, Glucose Level 83, Calcium Level 9.7 05/26/16 07:50: White Blood Count [Pending], Red Blood Count [Pending], Hemoglobin [Pending], Hematocrit [Pending], Mean Corpuscular Volume [Pending], Mean Corpuscular Hemoglobin [Pending], Mean Corpuscular Hemoglobin Concent [Pending], Red Cell Distribution Width [Pending], Platelet Count [Pending], Mean Platelet Volume [ Pending], Neutrophils (%) (Auto) [Pending], Lymphocytes (%) (Auto) [Pending], Monocytes (%) (Auto) [Pending], Eosinophils (%) (Auto) [Pending], Basophils (%) (Auto) [Pending], Sodium Level [Pending], Potassium Level [Pending], Chloride Level [Pending], Carbon Dioxide Level [Pending], Blood Urea Nitrogen [Pending], Creatinine [Pending], Estimat Glomerular Filtration Rate [Pending], Glucose Level [Pending], Calcium Level [Pending] Height (Feet): 5 Height (Inches): 2.00 Weight (Pounds): 110 General Appearance: no apparent distress Cardiovascular: normal rate, regular rhythm Respiratory/Chest: lungs clear Abdomen: non tender, soft, no organomegaly FRANCISCO J CRANDALL May 26, 2016 08:28
[2016-05-26 08:38] LABS: CALCIUM 9.9 mg/dL (8.6-10.2); CREATININE 7.6 mg/dL (0.5-0.9); GLOMERULAR FILTRATION RATE 6.4 mL/min (>60); POTASSIUM 4.8 mEQ/L (3.4-4.9)
--- NOTE | 2016-05-26 08:53 | General Progress Note ---
Assessment/Plan Problem List: (1) Dizziness ICD Codes: R42 - Dizziness and giddiness SNOMED: 867036711 (2) Renal failure (3) Unable to ambulate ICD Codes: R26.2 - Unable to ambulate SNOMED: 359341810 (4) Hypertensive urgency, malignant ICD Codes: I10 - Essential (primary) hypertension SNOMED: 377387662 (5) Dizziness ICD Codes: R42 - Dizziness and giddiness SNOMED: 195413912 (6) ESRD (end stage renal disease) on dialysis ICD Codes: N18.6 - End stage renal disease; Z99.2 - Dependence on renal dialysis SNOMED: 416911603 (7) Diabetes ICD Codes: E11.9 - Diabetes SNOMED: 11830613 (8) Weakness ICD Codes: R53.1 - Weakness SNOMED: 63075394 (9) Cellulitis ICD Codes: L03.90 - Cellulitis, unspecified SNOMED: 831535621 Qualifiers: Status: stable, progressing, tolerating diet Assessment/Plan ot pt diet wound care abx dialysis cbc bmp am Subjective Constitutional: Reports: weakness Allergies: Coded Allergies: No Known Allergies (Verified , 05/25/09) All Systems: reviewed and negative except above Subjective o2nc sleepy Objective Last 24 Hour Vital Signs Date Time Temp Pulse Resp B/P Pulse Ox O2 Delivery O2 Flow Rate FiO2 05/26/16 04:00 97.5 76 16 160/88 97 Nasal Cannula 2.0 05/26/16 00:00 97.2 70 16 142/80 Nasal Cannula 2.0 99 05/25/16 23:39 142/80 05/25/16 23:36 97 Nasal Cannula 2.0 28 05/25/16 23:36 Nasal Cannula 2.0 28 05/25/16 22:09 96.0 05/25/16 20:21 68 05/25/16 20:00 68 20 133/67 Nasal Cannula 2.0 97 05/25/16 17:22 155/68 05/25/16 16:00 96.0 74 20 155/68 Nasal Cannula 2.0 98 05/25/16 13:32 138/75 05/25/16 12:00 97.5 17 138/75 93 Room Air 05/25/16 09:00 75 145/76 05/25/16 09:00 75 145/76 Intake and Output 05/25/16 05/26/16 19:00 07:00 Intake Total 360 ml 320 ml Balance 360 ml 320 ml Intake Oral 360 ml 320 ml # Voids 3 Laboratory Tests 05/25/16 10:35: White Blood Count 3.3L, Red Blood Count 3.68L, Hemoglobin 10.9L, Hematocrit 35.0L, Mean Corpuscular Volume 95, Mean Corpuscular Hemoglobin 29.5, Mean Corpuscular Hemoglobin Concent 31.1L, Red Cell Distribution Width 19.0H, Platelet Count 151, Mean Platelet Volume 7.9, Neutrophils (%) (Auto) , Lymphocytes (%) (Auto) , Monocytes (%) (Auto) , Eosinophils (%) (Auto) , Basophils (%) (Auto) , Differential Total Cells Counted 100, Neutrophils % ( Manual) 65, Lymphocytes % (Manual) 24, Monocytes % (Manual) 8, Eosinophils % ( Manual) 3, Basophils % (Manual) 0, Band Neutrophils 0, Platelet Estimate Adequate, Platelet Morphology Normal, Hypochromasia 1+, Anisocytosis 2+, Sodium Level 139, Potassium Level 4.7, Chloride Level 97L, Carbon Dioxide Level 22, Anion Gap 20H, Blood Urea Nitrogen 24H, Creatinine 6.7H, Estimat Glomerular Filtration Rate 7.4, Glucose Level 83, Calcium Level 9.7 05/26/16 07:50: White Blood Count 4.3L, Red Blood Count 3.40L, Hemoglobin 10.0L, Hematocrit 32.5L, Mean Corpuscular Volume 96, Mean Corpuscular Hemoglobin 29.4, Mean Corpuscular Hemoglobin Concent 30.7L, Red Cell Distribution Width 19.2H, Platelet Count 158, Mean Platelet Volume 8.4, Neutrophils (%) (Auto) 72.1, Lymphocytes (%) (Auto) 12.9L, Monocytes (%) (Auto) 12.2H, Eosinophils (%) (Auto ) 1.9, Basophils (%) (Auto) 0.9, Sodium Level 139, Potassium Level 4.8, Chloride Level 97L, Carbon Dioxide Level 22, Anion Gap 20H, Blood Urea Nitrogen 30H, Creatinine 7.6H, Estimat Glomerular Filtration Rate 6.4, Glucose Level 107H , Calcium Level 9.9 Height (Feet): 5 Height (Inches): 2.00 Weight (Pounds): 110 General Appearance: lethargic EENT: normal ENT inspection Neck: normal alignment Cardiovascular: normal peripheral pulses, normal rate, regular rhythm Respiratory/Chest: chest wall non-tender, lungs clear, normal breath sounds Abdomen: normal bowel sounds, non tender, soft Extremities: normal inspection Edema: no edema noted Arm (L), no edema noted Arm (R), no edema noted Leg (L), no edema noted Leg (R), no edema noted Pedal (L), no edema noted Pedal (R), no edema noted Generalized Neurologic: motor weakness Skin: normal pigmentation, warm/dry ATILIO LOVING May 26, 2016 08:53
--- NOTE | 2016-05-26 10:31 | Cardiac Electrophysiology PN ---
Assessment/Plan Assessment/Plan 1. Hypertension. On metoprolol 100 mg twice a day, Norvasc 10 mg daily, change Hydralazine to 75 q8 .Rarely needed the prn Clonidine. 2. End-stage renal disease, on hemodialysis. 3. Right arm edema, has cellulitis. On Antibiotics 4. Anemia, secondary to renal failure. YULI RN Subjective Subjective Alert in NAD.No events overnight. RN at bedside. Comfortable. Objective Last 24 Hour Vital Signs Date Time Temp Pulse Resp B/P Pulse Ox O2 Delivery O2 Flow Rate FiO2 05/26/16 09:09 82 137/77 05/26/16 09:09 82 137/77 05/26/16 08:00 98.1 82 18 145/93 92 Room Air 05/26/16 04:00 97.5 76 16 160/88 97 Nasal Cannula 2.0 05/26/16 00:00 97.2 70 16 142/80 Nasal Cannula 2.0 99 05/25/16 23:39 142/80 05/25/16 23:36 97 Nasal Cannula 2.0 28 05/25/16 23:36 Nasal Cannula 2.0 28 05/25/16 22:09 96.0 05/25/16 20:21 68 05/25/16 20:00 68 20 133/67 Nasal Cannula 2.0 97 05/25/16 17:22 155/68 05/25/16 16:00 96.0 74 20 155/68 Nasal Cannula 2.0 98 05/25/16 13:32 138/75 05/25/16 12:00 97.5 17 138/75 93 Room Air Intake and Output 05/25/16 05/26/16 19:00 07:00 Intake Total 360 ml 320 ml Balance 360 ml 320 ml Intake Oral 360 ml 320 ml # Voids 3 Laboratory Tests Test 05/25/16 10:35 05/26/16 07:50 White Blood Count 3.3 K/UL (4.8-10.8) L 4.3 K/UL (4.8-10.8) L Red Blood Count 3.68 M/UL (4.20-5.40) L 3.40 M/UL (4.20-5.40) L Hemoglobin 10.9 G/DL (12.0-16.0) L 10.0 G/DL (12.0-16.0) L Hematocrit 35.0 % (37.0-47.0) L 32.5 % (37.0-47.0) L Mean Corpuscular Volume 95 FL (80-99) 96 FL (80-99) Mean Corpuscular Hemoglobin 29.5 PG (27.0-31.0) 29.4 PG (27.0-31.0) Mean Corpuscular Hemoglobin Concent 31.1 G/DL (32.0-36.0) L 30.7 G/DL (32.0-36.0) L Red Cell Distribution Width 19.0 % (11.6-14.8) H 19.2 % (11.6-14.8) H Platelet Count 151 K/UL (150-450) 158 K/UL (150-450) Mean Platelet Volume 7.9 FL (6.5-10.1) 8.4 FL (6.5-10.1) Neutrophils (%) (Auto) % (45.0-75.0) 72.1 % (45.0-75.0) Lymphocytes (%) (Auto) % (20.0-45.0) 12.9 % (20.0-45.0) L Monocytes (%) (Auto) % (1.0-10.0) 12.2 % (1.0-10.0) H Eosinophils (%) (Auto) % (0.0-3.0) 1.9 % (0.0-3.0) Basophils (%) (Auto) % (0.0-2.0) 0.9 % (0.0-2.0) Differential Total Cells Counted 100 Neutrophils % (Manual) 65 % (45-75) Lymphocytes % (Manual) 24 % (20-45) Monocytes % (Manual) 8 % (1-10) Eosinophils % (Manual) 3 % (0-3) Basophils % (Manual) 0 % (0-2) Band Neutrophils 0 % (0-8) Platelet Estimate Adequate Platelet Morphology Normal Hypochromasia 1+ Anisocytosis 2+ Sodium Level 139 mEQ/L (135-145) 139 mEQ/L (135-145) Potassium Level 4.7 mEQ/L (3.4-4.9) 4.8 mEQ/L (3.4-4.9) Chloride Level 97 mEQ/L (98-107) L 97 mEQ/L (98-107) L Carbon Dioxide Level 22 mEQ/L (20-30) 22 mEQ/L (20-30) Anion Gap 20 (5-15) H 20 (5-15) H Blood Urea Nitrogen 24 mg/dL (7-23) H 30 mg/dL (7-23) H Creatinine 6.7 mg/dL (0.5-0.9) H 7.6 mg/dL (0.5-0.9) H Estimat Glomerular Filtration Rate 7.4 mL/min (>60) 6.4 mL/min (>60) Glucose Level 83 mg/dL (74-106) 107 mg/dL (74-106) H Calcium Level 9.7 mg/dL (8.6-10.2) 9.9 mg/dL (8.6-10.2) Microbiology Date/Time Source Procedure Growth Status 05/23/16 13:40 Blood Blood Culture - Preliminary NO GROWTH AFTER 48 HOURS Resulted 05/23/16 13:30 Blood Blood Culture - Preliminary NO GROWTH AFTER 48 HOURS Resulted 05/23/16 15:23 Wound Gram Stain - Final Resulted 05/23/16 15:23 Wound Wound Culture - Preliminary NO GROWTH AFTER 72 HOURS Resulted 05/23/16 14:11 Nasal Nares MRSA Culture - Final NO METHICILLIN RESISTANT STAPH AUREUS... Complete 05/23/16 14:11 Rectum VRE Culture - Final NO VANCOMYCIN RESISTANT ENTEROCOCCUS ... Complete Objective HEAD AND NECK: Showed no JVD. LUNGS: Clear. CARDIOVASCULAR: Shows regular S1 and S2 with 2/6 systolic murmur. ABDOMEN: Soft. EXTREMITIES: Right arm dialysis line is swollen. BRITTA FRASER May 26, 2016 10:30
--- NOTE | 2016-05-26 11:57 | Infectious Diseases Prog Note ---
Assessment/Plan Assessment/Plan ASSESSMENT: 70 y/o female with: // RUE swelling r/o cellulitis, AVF infection - BCx NGTD - doppler: patent AVF, no stenosis, occlusion, pseudoaneurysm or abscess // Chronic leukopenia / pancytopenia, afebrile // ESRD / HD with RUE AVF // Accelerated HTN // Negative MRSA, VRE screens // NKDA // DNR PLAN: - continue IV vancomycin, fortaz d# . Ok to dose with HD, complete as outpt unless BCx positive, will need further w/u ( 05/23 SP unasyn x1 ) - f/u vascular eval - f/u cultures - monitor CBC, temperatures - monitor BMP Subjective Allergies: Coded Allergies: No Known Allergies (Verified , 05/25/09) Subjective remains afebrile. swelling unchanged vascular consulted Objective Vital Signs Last 24 Hour Vital Signs Date Time Temp Pulse Resp B/P Pulse Ox O2 Delivery O2 Flow Rate FiO2 05/26/16 09:09 82 137/77 05/26/16 09:09 82 137/77 05/26/16 08:00 98.1 82 18 145/93 92 Room Air 05/26/16 04:00 97.5 76 16 160/88 97 Nasal Cannula 2.0 05/26/16 00:00 97.2 70 16 142/80 Nasal Cannula 2.0 99 05/25/16 23:39 142/80 05/25/16 23:36 97 Nasal Cannula 2.0 28 05/25/16 23:36 Nasal Cannula 2.0 28 05/25/16 22:09 96.0 05/25/16 20:21 68 05/25/16 20:00 68 20 133/67 Nasal Cannula 2.0 97 05/25/16 17:22 155/68 05/25/16 16:00 96.0 74 20 155/68 Nasal Cannula 2.0 98 05/25/16 13:32 138/75 05/25/16 12:00 97.5 17 138/75 93 Room Air Height (Feet): 5 Height (Inches): 2.00 Weight (Pounds): 110 General Appearance: no acute distress Respiratory/Chest: no respiratory distress Cardiovascular: normal rate, regular rhythm Abdomen: normal bowel sounds, soft, non tender, non distended Extremities: other - RUE AVF, edema Microbiology Date/Time Source Procedure Growth Status 05/23/16 13:40 Blood Blood Culture - Preliminary NO GROWTH AFTER 48 HOURS Resulted 05/23/16 13:30 Blood Blood Culture - Preliminary NO GROWTH AFTER 48 HOURS Resulted 05/23/16 15:23 Wound Gram Stain - Final Resulted 05/23/16 15:23 Wound Wound Culture - Preliminary NO GROWTH AFTER 72 HOURS Resulted 05/23/16 14:11 Nasal Nares MRSA Culture - Final NO METHICILLIN RESISTANT STAPH AUREUS... Complete 05/23/16 14:11 Rectum VRE Culture - Final NO VANCOMYCIN RESISTANT ENTEROCOCCUS ... Complete Laboratory Tests Test 05/26/16 07:50 White Blood Count 4.3 K/UL (4.8-10.8) L Red Blood Count 3.40 M/UL (4.20-5.40) L Hemoglobin 10.0 G/DL (12.0-16.0) L Hematocrit 32.5 % (37.0-47.0) L Mean Corpuscular Volume 96 FL (80-99) Mean Corpuscular Hemoglobin 29.4 PG (27.0-31.0) Mean Corpuscular Hemoglobin Concent 30.7 G/DL (32.0-36.0) L Red Cell Distribution Width 19.2 % (11.6-14.8) H Platelet Count 158 K/UL (150-450) Mean Platelet Volume 8.4 FL (6.5-10.1) Neutrophils (%) (Auto) 72.1 % (45.0-75.0) Lymphocytes (%) (Auto) 12.9 % (20.0-45.0) L Monocytes (%) (Auto) 12.2 % (1.0-10.0) H Eosinophils (%) (Auto) 1.9 % (0.0-3.0) Basophils (%) (Auto) 0.9 % (0.0-2.0) Sodium Level 139 mEQ/L (135-145) Potassium Level 4.8 mEQ/L (3.4-4.9) Chloride Level 97 mEQ/L (98-107) L Carbon Dioxide Level 22 mEQ/L (20-30) Anion Gap 20 (5-15) H Blood Urea Nitrogen 30 mg/dL (7-23) H Creatinine 7.6 mg/dL (0.5-0.9) H Estimat Glomerular Filtration Rate 6.4 mL/min (>60) Glucose Level 107 mg/dL (74-106) H Calcium Level 9.9 mg/dL (8.6-10.2) Current Medications Medications (Trade) Dose Ordered Sig/Celine Route PRN Reason Start Time Stop Time Status Last Admin Dose Admin Acetaminophen (Tylenol) 500 mg QID PRN ORAL Mild Pain/Temp > 100.5 05/23/16 20:15 06/22/16 20:14 05/23/16 21:58 Al Hydroxide/Mg Hydroxide (Mylanta) 30 ml FOUR TIMES A DAY PRN ORAL Stomach Pain 05/25/16 22:30 06/24/16 22:29 05/25/16 22:47 Amlodipine Besylate (Norvasc) 10 mg DAILY ORAL 05/24/16 09:00 06/23/16 08:59 05/26/16 09:09 Ceftazidime/ Dextrose (Fortaz/D5W 50ml) 55 ml @ 100 mls/hr Q24HRS IVP 05/25/16 18:00 05/31/16 17:59 05/25/16 18:58 Clonidine HCl (Catapres) 0.2 mg EVERY 2 HOURS PRN ORAL hypertension 05/23/16 19:45 06/22/16 19:44 Dextrose (Dextrose 50%) STAT PRN IV Hypoglycemia 05/23/16 20:15 06/22/16 20:14 Hydralazine HCl (Apresoline) 75 mg Q8HR ORAL 05/26/16 14:00 06/25/16 13:59 Insulin Aspart (NovoLOG) BEFORE MEALS AND HS SUBQ 05/23/16 21:00 06/22/16 20:59 Loperamide HCl (Imodium) 4 mg Q6H PRN ORAL diarrhea 05/24/16 10:30 06/23/16 10:29 Metoprolol Tartrate (Lopressor) 100 mg EVERY 12 HOURS ORAL 05/23/16 21:00 06/22/16 20:59 05/26/16 09:09 Morphine Sulfate (Morphine Sulfate) 2 mg Q4H PRN IVP for pain 05/24/16 12:00 05/31/16 11:59 05/25/16 21:39 Ondansetron HCl (Zofran) 4 mg Q4H PRN IVP Nausea & Vomiting 05/26/16 05:30 06/25/16 05:29 05/26/16 10:51 Sevelamer HCl (Renagel) 400 mg TIAC ORAL 05/24/16 06:30 06/23/16 06:29 05/25/16 16:53 Vancomycin HCl 1 ea 1 ea DAILY PRN MISC Per rx protocol 05/24/16 15:15 06/23/16 15:14 Zolpidem Tartrate (Ambien) 5 mg HSPRN PRN ORAL Insomnia 05/24/16 03:15 06/23/16 03:14 MARLON BYRNES May 26, 2016 11:57
[2016-05-26] MEDS: HydrALAZINE 25mg tab ORAL SCH ×2 (13:57→22:58)
[2016-05-26] MEDS ORDERED: NS 110ml ONE (15:33)
--- NOTE | 2016-05-26 17:55 | Nephrology Progress Note ---
Assessment/Plan Problem List: (1) AV fistula infection (2) Cellulitis (3) ESRD (end stage renal disease) on dialysis (4) Accelerated hypertension (5) Thrombocytopenia (6) Anemia in chronic kidney disease (CKD) Plan Continue HD, last HD done today 05/26/16, total fluid removed is 2000cc Continue abx per ID Monitor BP Will f/u with cardio recs Monitor I&O Start pt on clear liquid diet as tolerated Vascular surgeon f/u AM labs Subjective Constitutional: Denies: chills, diaphoresis, fever, malaise, no symptoms, other , weakness HEENT: Denies: blurred vision, double vision, ear discharge, ear pain, eye pain , mouth pain, mouth swelling, no symptoms, nose congestion, nose pain, other, tearing, throat pain, throat swelling Genitourinary: Denies: burning, discharge, flank pain, frequency, hematuria, incontinence, no symptoms, other, pain, urgency Neurologic/Psychiatric: Denies: anxiety, depressed, emotional problems, headache, no symptoms, numbness, other, paresthesia, pre-existing deficit, seizure, tingling, tremors, weakness Subjective In bed, no distress noted Objective Objective Last 24 Hour Vital Signs Date Time Temp Pulse Resp B/P Pulse Ox O2 Delivery O2 Flow Rate FiO2 05/26/16 15:10 Room Air 05/26/16 13:57 124/71 05/26/16 12:00 Room Air 05/26/16 12:00 97.7 67 17 124/71 95 Room Air 05/26/16 09:09 82 137/77 05/26/16 09:09 82 137/77 05/26/16 08:00 98.1 82 18 145/93 92 Room Air 05/26/16 04:00 97.5 76 16 160/88 97 Nasal Cannula 2.0 05/26/16 00:00 97.2 70 16 142/80 Nasal Cannula 2.0 99 05/25/16 23:39 142/80 05/25/16 23:36 97 Nasal Cannula 2.0 28 05/25/16 23:36 Nasal Cannula 2.0 28 05/25/16 22:09 96.0 05/25/16 20:21 68 05/25/16 20:00 68 20 133/67 Nasal Cannula 2.0 97 Intake and Output 05/25/16 05/26/16 18:59 06:59 Intake Total 360 ml 320 ml Balance 360 ml 320 ml Intake Oral 360 ml 320 ml # Voids 3 Laboratory Tests 05/26/16 07:50: White Blood Count 4.3L, Red Blood Count 3.40L, Hemoglobin 10.0L, Hematocrit 32.5L, Mean Corpuscular Volume 96, Mean Corpuscular Hemoglobin 29.4, Mean Corpuscular Hemoglobin Concent 30.7L, Red Cell Distribution Width 19.2H, Platelet Count 158, Mean Platelet Volume 8.4, Neutrophils (%) (Auto) 72.1, Lymphocytes (%) (Auto) 12.9L, Monocytes (%) (Auto) 12.2H, Eosinophils (%) (Auto ) 1.9, Basophils (%) (Auto) 0.9, Sodium Level 139, Potassium Level 4.8, Chloride Level 97L, Carbon Dioxide Level 22, Anion Gap 20H, Blood Urea Nitrogen 30H, Creatinine 7.6H, Estimat Glomerular Filtration Rate 6.4, Glucose Level 107H , Calcium Level 9.9 Height (Feet): 5 Height (Inches): 2.00 Weight (Pounds): 110 General Appearance: alert Neck: normal alignment, supple Cardiovascular: normal rate, regular rhythm Respiratory/Chest: lungs clear, normal breath sounds Abdomen: soft, no organomegaly, no mass Extremities: non-tender, no calf tenderness Neurologic: alert, responsive, normal mood/affect Faith Bianchi N.P. May 26, 2016 17:55
[2016-05-26] MEDS: D5W IVP SCH (19:15)
[2016-05-26] MEDS: CEFTAZIDIME IVP SCH (19:15)
[2016-05-27] VITALS (8 sets, daily range): BP systolic 119–154; BP diastolic 55–93
[2016-05-27] MEDS: Renagel 400mg cap ORAL SCH ×3 (06:13→16:40)
[2016-05-27] MEDS: HydrALAZINE 25mg tab ORAL SCH ×3 (06:14→22:52)
[2016-05-27] MEDS: NovoLOG Insulin Flexpen SUBQ SCH ×4 (06:14→20:32)
[2016-05-27 07:22] LABS: BASOPHILS % (AUTO) 0.8 % (0.0-2.0); EOSINOPHILS % (AUTO) 3.6 % (0.0-3.0); LYMPHOCYTES % (AUTO) 18.6 % (20.0-45.0); MEAN CORPUSCULAR HEMOGLOBIN 30.1 PG (27.0-31.0); MEAN CORPUSCULAR HGB CONC 31.6 G/DL (32.0-36.0); MEAN CORPUSCULAR VOLUME 95 FL (80-99); MEAN PLATELET VOLUME 10.5 FL (6.5-10.1); MONOCYTES % (AUTO) 13.1 % (1.0-10.0); NEUTROPHILS % (AUTO) 63.9 % (45.0-75.0); PLATELET COUNT 166 K/UL (150-450); RED BLOOD COUNT 3.21 M/UL (4.20-5.40); RED CELL DISTRIBUTION WIDTH 19.2 % (11.6-14.8); WHITE BLOOD COUNT 3.6 K/UL (4.8-10.8)
[2016-05-27 07:35] LABS: CALCIUM 9.6 mg/dL (8.6-10.2); CREATININE 5.3 mg/dL (0.5-0.9); GLOMERULAR FILTRATION RATE 9.7 mL/min (>60); POTASSIUM 4.1 mEQ/L (3.4-4.9)
[2016-05-27] MEDS: DiphenhydrAMINE 50mg/ml Inj IVP PRN (13:08)
--- NOTE | 2016-05-27 13:15 | Cardiac Electrophysiology PN ---
Assessment/Plan Assessment/Plan 1. Hypertension. On metoprolol 100 mg twice a day, Norvasc 10 mg daily and Hydralazine 75 q8 .Rarely needed the prn Clonidine. 2. End-stage renal disease, on hemodialysis. 3. Right arm edema, has cellulitis. On Antibiotics 4. Anemia, secondary to renal failure. YULI RN Subjective Subjective Alert in NAD.No events overnight.Starting on Dialysis.. Objective Last 24 Hour Vital Signs Date Time Temp Pulse Resp B/P Pulse Ox O2 Delivery O2 Flow Rate FiO2 05/27/16 13:10 120/61 05/27/16 11:43 97.7 64 18 120/61 98 Nasal Cannula 2.0 05/27/16 09:13 63 128/66 05/27/16 09:12 63 128/66 05/27/16 08:00 97.2 63 18 128/66 93 Room Air 05/27/16 06:14 120/55 05/27/16 04:00 96.9 65 18 120/55 99 Nasal Cannula 2.0 05/27/16 00:00 97.0 64 18 119/63 98 Nasal Cannula 2.0 05/26/16 22:58 129/63 05/26/16 20:54 74 144/72 05/26/16 20:44 74 18 144/72 05/26/16 20:00 97.7 72 19 132/65 90 Room Air 05/26/16 16:00 97.0 75 18 132/65 Nasal Cannula 2.0 94 05/26/16 15:10 Room Air 05/26/16 13:57 124/71 Intake and Output 05/26/16 05/27/16 19:00 07:00 Intake Total 240 ml Output Total 2000 ml Balance -2000 ml 240 ml Intake Oral 240 ml Output Hemodialysis UF 2000 ml Laboratory Tests Test 05/27/16 05:15 White Blood Count 3.6 K/UL (4.8-10.8) L Red Blood Count 3.21 M/UL (4.20-5.40) L Hemoglobin 9.7 G/DL (12.0-16.0) L Hematocrit 30.6 % (37.0-47.0) L Mean Corpuscular Volume 95 FL (80-99) Mean Corpuscular Hemoglobin 30.1 PG (27.0-31.0) Mean Corpuscular Hemoglobin Concent 31.6 G/DL (32.0-36.0) L Red Cell Distribution Width 19.2 % (11.6-14.8) H Platelet Count 166 K/UL (150-450) Mean Platelet Volume 10.5 FL (6.5-10.1) H Neutrophils (%) (Auto) 63.9 % (45.0-75.0) Lymphocytes (%) (Auto) 18.6 % (20.0-45.0) L Monocytes (%) (Auto) 13.1 % (1.0-10.0) H Eosinophils (%) (Auto) 3.6 % (0.0-3.0) H Basophils (%) (Auto) 0.8 % (0.0-2.0) Sodium Level 139 mEQ/L (135-145) Potassium Level 4.1 mEQ/L (3.4-4.9) Chloride Level 93 mEQ/L (98-107) L Carbon Dioxide Level 29 mEQ/L (20-30) Anion Gap 17 (5-15) H Blood Urea Nitrogen 19 mg/dL (7-23) Creatinine 5.3 mg/dL (0.5-0.9) H Estimat Glomerular Filtration Rate 9.7 mL/min (>60) Glucose Level 82 mg/dL (74-106) Calcium Level 9.6 mg/dL (8.6-10.2) Objective HEAD AND NECK: Showed no JVD. LUNGS: Clear. CARDIOVASCULAR: Shows regular S1 and S2 with 2/6 systolic murmur. ABDOMEN: Soft. EXTREMITIES: Right arm dialysis line BRITTA FRASER May 27, 2016 13:15
--- NOTE | 2016-05-27 13:35 | Nephrology Progress Note ---
Assessment/Plan Problem List: (1) AV fistula infection (2) Cellulitis (3) ESRD (end stage renal disease) on dialysis (4) Accelerated hypertension (5) Thrombocytopenia (6) Anemia in chronic kidney disease (CKD) Plan Continue HD Continue abx per ID Monitor BP Will f/u with cardio recs Monitor I&O Advance to soft diet as tolerated Vascular surgeon f/u AM labs Subjective Constitutional: Denies: chills, diaphoresis, fever, malaise, no symptoms, other , weakness HEENT: Denies: blurred vision, double vision, ear discharge, ear pain, eye pain , mouth pain, mouth swelling, no symptoms, nose congestion, nose pain, other, tearing, throat pain, throat swelling Neurologic/Psychiatric: Denies: anxiety, depressed, emotional problems, headache, no symptoms, numbness, other, paresthesia, pre-existing deficit, seizure, tingling, tremors, weakness Subjective In bed, no distress noted, HD ongoing Objective Objective Last 24 Hour Vital Signs Date Time Temp Pulse Resp B/P Pulse Ox O2 Delivery O2 Flow Rate FiO2 05/27/16 13:10 120/61 05/27/16 11:43 97.7 64 18 120/61 98 Nasal Cannula 2.0 05/27/16 09:13 63 128/66 05/27/16 09:12 63 128/66 05/27/16 08:00 97.2 63 18 128/66 93 Room Air 05/27/16 06:14 120/55 05/27/16 04:00 96.9 65 18 120/55 99 Nasal Cannula 2.0 05/27/16 00:00 97.0 64 18 119/63 98 Nasal Cannula 2.0 05/26/16 22:58 129/63 05/26/16 20:54 74 144/72 05/26/16 20:44 74 18 144/72 05/26/16 20:00 97.7 72 19 132/65 90 Room Air 05/26/16 16:00 97.0 75 18 132/65 Nasal Cannula 2.0 94 05/26/16 15:10 Room Air 05/26/16 13:57 124/71 Intake and Output 05/26/16 05/27/16 19:00 07:00 Intake Total 240 ml Output Total 2000 ml Balance -2000 ml 240 ml Intake Oral 240 ml Output Hemodialysis UF 2000 ml Laboratory Tests 05/27/16 05:15: White Blood Count 3.6L, Red Blood Count 3.21L, Hemoglobin 9.7L, Hematocrit 30.6L , Mean Corpuscular Volume 95, Mean Corpuscular Hemoglobin 30.1, Mean Corpuscular Hemoglobin Concent 31.6L, Red Cell Distribution Width 19.2H, Platelet Count 166, Mean Platelet Volume 10.5H, Neutrophils (%) (Auto) 63.9, Lymphocytes (%) (Auto) 18.6L, Monocytes (%) (Auto) 13.1H, Eosinophils (%) (Auto ) 3.6H, Basophils (%) (Auto) 0.8, Sodium Level 139, Potassium Level 4.1, Chloride Level 93L, Carbon Dioxide Level 29, Anion Gap 17H, Blood Urea Nitrogen 19, Creatinine 5.3H, Estimat Glomerular Filtration Rate 9.7, Glucose Level 82, Calcium Level 9.6 Height (Feet): 5 Height (Inches): 2.00 Weight (Pounds): 110 General Appearance: no apparent distress, alert EENT: normal ENT inspection Neck: normal alignment, supple, normal inspection Cardiovascular: normal rate, regular rhythm Respiratory/Chest: lungs clear, normal breath sounds, no respiratory distress Abdomen: soft Extremities: non-tender, normal inspection, no calf tenderness Neurologic: alert, oriented x 3, responsive, normal mood/affect Faith Bianchi N.P. May 27, 2016 13:35
[2016-05-27] MEDS: D5W IVP SCH (18:24)
[2016-05-27] MEDS: CEFTAZIDIME IVP SCH (18:24)
[2016-05-28 04:05] VITALS: BP 147/80
[2016-05-28] MEDS: NovoLOG Insulin Flexpen SUBQ SCH ×4 (06:30→21:00)
[2016-05-28] MEDS: Renagel 400mg cap ORAL SCH ×3 (07:07→16:32)
[2016-05-28] MEDS: HydrALAZINE 25mg tab ORAL SCH ×3 (07:07→21:47)
[2016-05-28 08:00] VITALS: BP 161/70
--- NOTE | 2016-05-28 10:35 | Infectious Diseases Prog Note ---
Assessment/Plan Assessment/Plan ASSESSMENT: 70 y/o female with: // RUE swelling r/o cellulitis, AVF infection - BCx NGTD - doppler: patent AVF, no stenosis, occlusion, pseudoaneurysm or abscess // Chronic leukopenia / pancytopenia, afebrile // ESRD / HD with RUE AVF // Accelerated HTN // Negative MRSA, VRE screens // NKDA // DNR PLAN: - continue IV vancomycin, fortaz d# / . Ok to dose with HD, complete as outpt unless BCx positive, will need further w/u ( 05/23 SP unasyn x1 ) - f/u vascular eval - f/u cultures - monitor CBC, temperatures - monitor BMP Subjective Allergies: Coded Allergies: No Known Allergies (Verified , 05/25/09) Subjective remains afebrile. no new complaint Objective Vital Signs Last 24 Hour Vital Signs Date Time Temp Pulse Resp B/P Pulse Ox O2 Delivery O2 Flow Rate FiO2 05/28/16 08:41 67 161/70 05/28/16 08:40 67 161/70 05/28/16 08:00 96.6 67 18 161/70 96 Nasal Cannula 2.0 05/28/16 07:59 Nasal Cannula 2.0 28 05/28/16 07:58 95 Nasal Cannula 2.0 28 05/28/16 07:07 147/80 05/28/16 04:05 97.5 65 18 147/80 95 Nasal Cannula 2.0 95 05/27/16 23:54 97.9 68 19 126/78 95 Nasal Cannula 2.0 95 05/27/16 22:52 144/66 05/27/16 20:30 75 154/73 05/27/16 19:36 97.9 75 20 154/73 94 Room Air 05/27/16 19:13 Nasal Cannula 2.0 28 05/27/16 19:11 94 Nasal Cannula 2.0 28 05/27/16 15:45 98.2 60 18 150/69 96 Nasal Cannula 2.0 05/27/16 15:45 Nasal Cannula 2.0 05/27/16 13:10 120/61 05/27/16 12:45 Nasal Cannula 2.0 05/27/16 11:43 97.7 64 18 120/61 98 Nasal Cannula 2.0 Height (Feet): 5 Height (Inches): 2.00 Weight (Pounds): 141 General Appearance: no acute distress Respiratory/Chest: no respiratory distress Cardiovascular: normal rate, regular rhythm Abdomen: normal bowel sounds, soft, non tender, non distended Current Medications Medications (Trade) Dose Ordered Sig/Celine Route PRN Reason Start Time Stop Time Status Last Admin Dose Admin Acetaminophen (Tylenol) 500 mg QID PRN ORAL Mild Pain/Temp > 100.5 05/23/16 20:15 06/22/16 20:14 05/23/16 21:58 Al Hydroxide/Mg Hydroxide (Mylanta) 30 ml FOUR TIMES A DAY PRN ORAL Stomach Pain 05/25/16 22:30 06/24/16 22:29 05/25/16 22:47 Amlodipine Besylate (Norvasc) 10 mg DAILY ORAL 05/24/16 09:00 06/23/16 08:59 05/28/16 08:40 Ceftazidime/ Dextrose (Fortaz/D5W 50ml) 55 ml @ 100 mls/hr Q24HRS IVP 05/25/16 18:00 05/31/16 17:59 05/27/16 18:24 Clonidine HCl (Catapres) 0.2 mg EVERY 2 HOURS PRN ORAL hypertension 05/23/16 19:45 06/22/16 19:44 Dextrose (Dextrose 50%) STAT PRN IV Hypoglycemia 05/23/16 20:15 06/22/16 20:14 Diphenhydramine HCl (Benadryl) 25 mg Q2H PRN IVP Itching 05/26/16 16:00 06/25/16 15:59 05/27/16 13:08 Hydralazine HCl (Apresoline) 75 mg Q8HR ORAL 05/26/16 14:00 06/25/16 13:59 05/28/16 07:07 Insulin Aspart (NovoLOG) BEFORE MEALS AND HS SUBQ 05/23/16 21:00 06/22/16 20:59 Loperamide HCl (Imodium) 4 mg Q6H PRN ORAL diarrhea 05/24/16 10:30 06/23/16 10:29 Metoprolol Tartrate (Lopressor) 100 mg EVERY 12 HOURS ORAL 05/23/16 21:00 06/22/16 20:59 05/28/16 08:41 Morphine Sulfate (Morphine Sulfate) 2 mg Q4H PRN IVP for pain 05/24/16 12:00 05/31/16 11:59 05/25/16 21:39 Ondansetron HCl (Zofran) 4 mg Q4H PRN IVP Nausea & Vomiting 05/26/16 05:30 06/25/16 05:29 05/26/16 10:51 Sevelamer HCl (Renagel) 400 mg TIAC ORAL 05/24/16 06:30 06/23/16 06:29 05/28/16 07:07 Vancomycin HCl 1 ea 1 ea DAILY PRN MISC Per rx protocol 05/24/16 15:15 06/23/16 15:14 Zolpidem Tartrate (Ambien) 5 mg HSPRN PRN ORAL Insomnia 05/24/16 03:15 06/23/16 03:14 MARLON BYRNES May 28, 2016 10:35
--- NOTE | 2016-05-28 10:54 | Nephrology Progress Note ---
Assessment/Plan Problem List: (1) AV fistula infection (2) Cellulitis (3) ESRD (end stage renal disease) on dialysis (4) Accelerated hypertension (5) Thrombocytopenia (6) Anemia in chronic kidney disease (CKD) Plan Continue HD Continue abx per ID Monitor BP Will f/u with cardio recs Monitor I&O Vascular surgeon f/u AM labs Subjective Constitutional: Denies: chills, diaphoresis, fever, malaise, no symptoms, other , weakness HEENT: Denies: blurred vision, double vision, ear discharge, ear pain, eye pain , mouth pain, mouth swelling, no symptoms, nose congestion, nose pain, other, tearing, throat pain, throat swelling Genitourinary: Denies: burning, discharge, flank pain, frequency, hematuria, incontinence, no symptoms, other, pain, urgency Neurologic/Psychiatric: Denies: anxiety, depressed, emotional problems, headache, no symptoms, numbness, other, paresthesia, pre-existing deficit, seizure, tingling, tremors, weakness Subjective In bed, no distress noted Objective Objective Last 24 Hour Vital Signs Date Time Temp Pulse Resp B/P Pulse Ox O2 Delivery O2 Flow Rate FiO2 05/28/16 08:41 67 161/70 05/28/16 08:40 67 161/70 05/28/16 08:00 96.6 67 18 161/70 96 Nasal Cannula 2.0 05/28/16 07:59 Nasal Cannula 2.0 28 05/28/16 07:58 95 Nasal Cannula 2.0 28 05/28/16 07:07 147/80 05/28/16 04:05 97.5 65 18 147/80 95 Nasal Cannula 2.0 95 05/27/16 23:54 97.9 68 19 126/78 95 Nasal Cannula 2.0 95 05/27/16 22:52 144/66 05/27/16 20:30 75 154/73 05/27/16 19:36 97.9 75 20 154/73 94 Room Air 05/27/16 19:13 Nasal Cannula 2.0 28 05/27/16 19:11 94 Nasal Cannula 2.0 28 05/27/16 15:45 98.2 60 18 150/69 96 Nasal Cannula 2.0 05/27/16 15:45 Nasal Cannula 2.0 05/27/16 13:10 120/61 05/27/16 12:45 Nasal Cannula 2.0 05/27/16 11:43 97.7 64 18 120/61 98 Nasal Cannula 2.0 Intake and Output 05/27/16 05/28/16 19:00 07:00 Intake Total 415 ml 270 ml Output Total 2565 ml Balance -2150 ml 270 ml Intake Oral 360 ml 270 ml IV Total 55 ml Output Hemodialysis UF 2565 ml Height (Feet): 5 Height (Inches): 2.00 Weight (Pounds): 141 General Appearance: alert EENT: normal ENT inspection Neck: non-tender, normal alignment, supple Cardiovascular: normal rate, regular rhythm Respiratory/Chest: lungs clear, normal breath sounds, no respiratory distress Abdomen: non tender, soft, no organomegaly Extremities: non-tender, normal inspection, other - right arm edema Neurologic: alert, oriented x 3, responsive, normal mood/affect Faith Bianchi N.P. May 28, 2016 10:54
[2016-05-28 11:28] LABS: BASOPHILS % (AUTO) 0.6 % (0.0-2.0); EOSINOPHILS % (AUTO) 3.2 % (0.0-3.0); LYMPHOCYTES % (AUTO) 14.9 % (20.0-45.0); MEAN CORPUSCULAR HGB CONC 31.4 G/DL (32.0-36.0); MEAN CORPUSCULAR VOLUME 96 FL (80-99); MEAN PLATELET VOLUME 8.3 FL (6.5-10.1); MONOCYTES % (AUTO) 16.1 % (1.0-10.0); NEUTROPHILS % (AUTO) 65.1 % (45.0-75.0); PLATELET COUNT 170 K/UL (150-450); RED BLOOD COUNT 3.38 M/UL (4.20-5.40); RED CELL DISTRIBUTION WIDTH 19.1 % (11.6-14.8); WHITE BLOOD COUNT 4.7 K/UL (4.8-10.8)
[2016-05-28 12:00] VITALS: BP 145/73
[2016-05-28 12:34] LABS: CALCIUM 10.3 mg/dL (8.6-10.2); CREATININE 4.4 mg/dL (0.5-0.9); POTASSIUM 3.9 mEQ/L (3.4-4.9)
[2016-05-28 16:00] VITALS: BP 130/64
[2016-05-28] MEDS: CEFTAZIDIME IVP SCH (19:31)
[2016-05-28] MEDS: D5W IVP SCH (19:31)
[2016-05-28 20:00] VITALS: BP 123/53
[2016-05-28] MEDS ORDERED: Vancomycin 750mg/D5W 250ml IVPB ONE ×2 (20:00)
[2016-05-28] MEDS: Morphine Sulfate 2mg/ml Inj IVP PRN (22:02)
[2016-05-29] VITALS: BP 140/74
[2016-05-29 04:00] VITALS: BP 141/81
[2016-05-29] MEDS: HydrALAZINE 25mg tab ORAL SCH ×3 (05:52→22:18)
[2016-05-29] MEDS: Renagel 400mg cap ORAL SCH ×3 (05:52→16:30)
[2016-05-29] MEDS: NovoLOG Insulin Flexpen SUBQ SCH ×4 (05:53→21:00)
[2016-05-29 07:13] LABS: CALCIUM 10.1 mg/dL (8.6-10.2); CREATININE 5.6 mg/dL (0.5-0.9); GLOMERULAR FILTRATION RATE 9.1 mL/min (>60)
[2016-05-29 07:45] LABS: BASOPHILS % (AUTO) 1.1 % (0.0-2.0); EOSINOPHILS % (AUTO) 1.9 % (0.0-3.0); LYMPHOCYTES % (AUTO) 18.5 % (20.0-45.0); MEAN CORPUSCULAR HEMOGLOBIN 30.4 PG (27.0-31.0); MEAN CORPUSCULAR HGB CONC 31.4 G/DL (32.0-36.0); MEAN CORPUSCULAR VOLUME 97 FL (80-99); MEAN PLATELET VOLUME 8.1 FL (6.5-10.1); MONOCYTES % (AUTO) 16.8 % (1.0-10.0); NEUTROPHILS % (AUTO) 61.6 % (45.0-75.0); PLATELET COUNT 187 K/UL (150-450); RED BLOOD COUNT 3.25 M/UL (4.20-5.40); RED CELL DISTRIBUTION WIDTH 19.4 % (11.6-14.8); WHITE BLOOD COUNT 5.8 K/UL (4.8-10.8)
[2016-05-29 08:12] VITALS: BP 141/70
[2016-05-29 11:57] VITALS: BP_SYST 137; BP_SYST 142; BP_DIAS 70; BP_DIAS 73
--- NOTE | 2016-05-29 12:20 | Cardiac Electrophysiology PN ---
Assessment/Plan Assessment/Plan 1. Hypertension. On metoprolol 100 mg twice a day, Norvasc 10 mg daily, Hydralazine 75 q8 and HD 2. End-stage renal disease, on hemodialysis. 3. Right arm edema, has cellulitis. On Antibiotics 4. Anemia, secondary to renal failure. YULI RN Subjective Subjective Alert in NAD.No events overnight.RN at bedside.DC planning. Objective Last 24 Hour Vital Signs Date Time Temp Pulse Resp B/P Pulse Ox O2 Delivery O2 Flow Rate FiO2 05/29/16 11:57 96.4 60 18 137/70 95 Room Air 05/29/16 08:41 64 141/70 05/29/16 08:40 64 141/70 05/29/16 08:12 97.2 64 18 141/70 93 Room Air 05/29/16 05:52 141/81 05/29/16 04:00 97.7 67 18 141/81 90 Room Air 05/29/16 00:00 97.7 69 20 140/74 91 Room Air 05/28/16 21:47 135/65 05/28/16 21:00 68 135/65 05/28/16 20:00 98.3 65 20 123/53 94 Room Air 05/28/16 19:30 Room Air 21 05/28/16 19:30 94 Room Air 21 05/28/16 16:00 97.6 62 18 130/64 97 Room Air 05/28/16 13:59 145/73 Intake and Output 05/28/16 05/29/16 19:00 07:00 Intake Total 240 ml 55 ml Balance 240 ml 55 ml Intake Oral 240 ml IV Total 55 ml Laboratory Tests Test 05/29/16 06:00 White Blood Count 5.8 K/UL (4.8-10.8) Red Blood Count 3.25 M/UL (4.20-5.40) L Hemoglobin 9.9 G/DL (12.0-16.0) L Hematocrit 31.4 % (37.0-47.0) L Mean Corpuscular Volume 97 FL (80-99) Mean Corpuscular Hemoglobin 30.4 PG (27.0-31.0) Mean Corpuscular Hemoglobin Concent 31.4 G/DL (32.0-36.0) L Red Cell Distribution Width 19.4 % (11.6-14.8) H Platelet Count 187 K/UL (150-450) Mean Platelet Volume 8.1 FL (6.5-10.1) Neutrophils (%) (Auto) 61.6 % (45.0-75.0) Lymphocytes (%) (Auto) 18.5 % (20.0-45.0) L Monocytes (%) (Auto) 16.8 % (1.0-10.0) H Eosinophils (%) (Auto) 1.9 % (0.0-3.0) Basophils (%) (Auto) 1.1 % (0.0-2.0) Sodium Level 138 mEQ/L (135-145) Potassium Level 4.0 mEQ/L (3.4-4.9) Chloride Level 93 mEQ/L (98-107) L Carbon Dioxide Level 28 mEQ/L (20-30) Anion Gap 17 (5-15) H Blood Urea Nitrogen 19 mg/dL (7-23) Creatinine 5.6 mg/dL (0.5-0.9) H Estimat Glomerular Filtration Rate 9.1 mL/min (>60) Glucose Level 95 mg/dL (74-106) Calcium Level 10.1 mg/dL (8.6-10.2) Objective HEAD AND NECK: No JVD. LUNGS: Clear. CARDIOVASCULAR: Regular S1 and S2 with 2/6 systolic murmur. ABDOMEN: Soft. EXTREMITIES: Right arm dialysis line BRITTA FRASER May 29, 2016 12:20
--- NOTE | 2016-05-29 12:58 | Nephrology Progress Note ---
Assessment/Plan Problem List: (1) AV fistula infection (2) Cellulitis (3) ESRD (end stage renal disease) on dialysis (4) Accelerated hypertension (5) Thrombocytopenia (6) Anemia in chronic kidney disease (CKD) Plan Continue HD Continue abx per ID Monitor BP Will f/u with cardio recs Monitor I&O OK to DC home with HH AM labs Subjective Constitutional: Denies: chills, diaphoresis, fever, malaise, no symptoms, other , weakness HEENT: Denies: blurred vision, double vision, ear discharge, ear pain, eye pain , mouth pain, mouth swelling, no symptoms, nose congestion, nose pain, other, tearing, throat pain, throat swelling Genitourinary: Denies: burning, discharge, flank pain, frequency, hematuria, incontinence, no symptoms, other, pain, urgency Neurologic/Psychiatric: Denies: anxiety, depressed, emotional problems, headache, no symptoms, numbness, other, paresthesia, pre-existing deficit, seizure, tingling, tremors, weakness Subjective In bed, no distress noted Objective Objective Last 24 Hour Vital Signs Date Time Temp Pulse Resp B/P Pulse Ox O2 Delivery O2 Flow Rate FiO2 05/29/16 11:57 96.4 60 18 137/70 95 Room Air 05/29/16 08:41 64 141/70 05/29/16 08:40 64 141/70 05/29/16 08:12 97.2 64 18 141/70 93 Room Air 05/29/16 05:52 141/81 05/29/16 04:00 97.7 67 18 141/81 90 Room Air 05/29/16 00:00 97.7 69 20 140/74 91 Room Air 05/28/16 21:47 135/65 05/28/16 21:00 68 135/65 05/28/16 20:00 98.3 65 20 123/53 94 Room Air 05/28/16 19:30 Room Air 21 05/28/16 19:30 94 Room Air 21 05/28/16 16:00 97.6 62 18 130/64 97 Room Air 05/28/16 13:59 145/73 Intake and Output 05/28/16 05/29/16 19:00 07:00 Intake Total 240 ml 55 ml Balance 240 ml 55 ml Intake Oral 240 ml IV Total 55 ml Laboratory Tests 05/29/16 06:00: White Blood Count 5.8, Red Blood Count 3.25L, Hemoglobin 9.9L, Hematocrit 31.4L , Mean Corpuscular Volume 97, Mean Corpuscular Hemoglobin 30.4, Mean Corpuscular Hemoglobin Concent 31.4L, Red Cell Distribution Width 19.4H, Platelet Count 187, Mean Platelet Volume 8.1, Neutrophils (%) (Auto) 61.6, Lymphocytes (%) (Auto) 18.5L, Monocytes (%) (Auto) 16.8H, Eosinophils (%) (Auto ) 1.9, Basophils (%) (Auto) 1.1, Sodium Level 138, Potassium Level 4.0, Chloride Level 93L, Carbon Dioxide Level 28, Anion Gap 17H, Blood Urea Nitrogen 19, Creatinine 5.6H, Estimat Glomerular Filtration Rate 9.1, Glucose Level 95, Calcium Level 10.1 Height (Feet): 5 Height (Inches): 2.00 Weight (Pounds): 144 General Appearance: alert EENT: normal ENT inspection Neck: normal alignment, supple, normal inspection Cardiovascular: normal rate, regular rhythm Respiratory/Chest: lungs clear, normal breath sounds, no respiratory distress Abdomen: non tender, soft, no organomegaly Extremities: no calf tenderness, other - right arm edema Neurologic: alert, oriented x 3, responsive, normal mood/affect Faith Bianchi N.P. May 29, 2016 12:58
[2016-05-29 16:02] VITALS: BP 136/68
--- NOTE | 2016-05-29 17:22 | Infectious Diseases Prog Note ---
Assessment/Plan Assessment/Plan ASSESSMENT: 70 y/o female with: // RUE swelling r/o cellulitis, AVF infection - BCx NGTD - doppler: patent AVF, no stenosis, occlusion, pseudoaneurysm or abscess // Chronic leukopenia / pancytopenia, afebrile // ESRD / HD with RUE AVF // Accelerated HTN // Negative MRSA, VRE screens // NKDA // DNR PLAN: - ok to DC off of ABX from ID standpoint. Will continue IV vancomycin, fortaz d # 6 while still inpt ( 05/23 SP unasyn x1 ) - f/u cultures - monitor CBC, temperatures - monitor BMP Subjective Allergies: Coded Allergies: No Known Allergies (Verified , 05/25/09) Subjective remains afebrile. no new complaint Objective Vital Signs Last 24 Hour Vital Signs Date Time Temp Pulse Resp B/P Pulse Ox O2 Delivery O2 Flow Rate FiO2 05/29/16 16:02 97.6 63 20 136/68 97 Nasal Cannula 2.0 05/29/16 13:29 137/70 05/29/16 11:57 96.4 60 18 137/70 95 Room Air 05/29/16 08:41 64 141/70 05/29/16 08:40 64 141/70 05/29/16 08:12 97.2 64 18 141/70 93 Room Air 05/29/16 05:52 141/81 05/29/16 04:00 97.7 67 18 141/81 90 Room Air 05/29/16 00:00 97.7 69 20 140/74 91 Room Air 05/28/16 21:47 135/65 05/28/16 21:00 68 135/65 05/28/16 20:00 98.3 65 20 123/53 94 Room Air 05/28/16 19:30 Room Air 21 05/28/16 19:30 94 Room Air 21 Height (Feet): 5 Height (Inches): 2.00 Weight (Pounds): 144 General Appearance: no acute distress Respiratory/Chest: no respiratory distress Cardiovascular: normal rate, regular rhythm Abdomen: normal bowel sounds, soft, non tender, non distended Laboratory Tests Test 05/29/16 06:00 White Blood Count 5.8 K/UL (4.8-10.8) Red Blood Count 3.25 M/UL (4.20-5.40) L Hemoglobin 9.9 G/DL (12.0-16.0) L Hematocrit 31.4 % (37.0-47.0) L Mean Corpuscular Volume 97 FL (80-99) Mean Corpuscular Hemoglobin 30.4 PG (27.0-31.0) Mean Corpuscular Hemoglobin Concent 31.4 G/DL (32.0-36.0) L Red Cell Distribution Width 19.4 % (11.6-14.8) H Platelet Count 187 K/UL (150-450) Mean Platelet Volume 8.1 FL (6.5-10.1) Neutrophils (%) (Auto) 61.6 % (45.0-75.0) Lymphocytes (%) (Auto) 18.5 % (20.0-45.0) L Monocytes (%) (Auto) 16.8 % (1.0-10.0) H Eosinophils (%) (Auto) 1.9 % (0.0-3.0) Basophils (%) (Auto) 1.1 % (0.0-2.0) Sodium Level 138 mEQ/L (135-145) Potassium Level 4.0 mEQ/L (3.4-4.9) Chloride Level 93 mEQ/L (98-107) L Carbon Dioxide Level 28 mEQ/L (20-30) Anion Gap 17 (5-15) H Blood Urea Nitrogen 19 mg/dL (7-23) Creatinine 5.6 mg/dL (0.5-0.9) H Estimat Glomerular Filtration Rate 9.1 mL/min (>60) Glucose Level 95 mg/dL (74-106) Calcium Level 10.1 mg/dL (8.6-10.2) Current Medications Medications (Trade) Dose Ordered Sig/Celine Route PRN Reason Start Time Stop Time Status Last Admin Dose Admin Acetaminophen (Tylenol) 500 mg QID PRN ORAL Mild Pain/Temp > 100.5 05/23/16 20:15 06/22/16 20:14 05/23/16 21:58 Al Hydroxide/Mg Hydroxide (Mylanta) 30 ml FOUR TIMES A DAY PRN ORAL Stomach Pain 05/25/16 22:30 06/24/16 22:29 05/25/16 22:47 Amlodipine Besylate (Norvasc) 10 mg DAILY ORAL 05/24/16 09:00 06/23/16 08:59 05/29/16 08:40 Bisacodyl (Dulcolax) 10 mg DAILYPRN PRN RECTAL Constipation 05/29/16 09:00 06/28/16 08:59 Ceftazidime/ Dextrose (Fortaz/D5W 50ml) 55 ml @ 100 mls/hr Q24HRS IVP 05/25/16 18:00 05/31/16 17:59 05/28/16 19:31 Clonidine HCl (Catapres) 0.2 mg EVERY 2 HOURS PRN ORAL hypertension 05/23/16 19:45 06/22/16 19:44 Dextrose (Dextrose 50%) STAT PRN IV Hypoglycemia 05/23/16 20:15 06/22/16 20:14 Diphenhydramine HCl (Benadryl) 25 mg Q2H PRN IVP Itching 05/26/16 16:00 06/25/16 15:59 05/27/16 13:08 Hydralazine HCl (Apresoline) 75 mg Q8HR ORAL 05/26/16 14:00 06/25/16 13:59 05/29/16 13:29 Insulin Aspart (NovoLOG) BEFORE MEALS AND HS SUBQ 05/23/16 21:00 06/22/16 20:59 Loperamide HCl (Imodium) 4 mg Q6H PRN ORAL diarrhea 05/24/16 10:30 06/23/16 10:29 Metoprolol Tartrate (Lopressor) 100 mg EVERY 12 HOURS ORAL 05/23/16 21:00 06/22/16 20:59 05/29/16 08:41 Morphine Sulfate (Morphine Sulfate) 2 mg Q4H PRN IVP for pain 05/24/16 12:00 05/31/16 11:59 05/28/16 22:02 Ondansetron HCl (Zofran) 4 mg Q4H PRN IVP Nausea & Vomiting 05/26/16 05:30 06/25/16 05:29 05/26/16 10:51 Sevelamer HCl (Renagel) 400 mg TIAC ORAL 05/24/16 06:30 06/23/16 06:29 05/29/16 11:54 Vancomycin HCl 1 ea 1 ea DAILY PRN MISC Per rx protocol 1/11/17 15:15 06/23/16 15:14 Zolpidem Tartrate (Ambien) 5 mg HSPRN PRN ORAL Insomnia 05/24/16 03:15 06/23/16 03:14 MARLON BYRNES May 29, 2016 17:22
[2016-05-29] MEDS: D5W IVP SCH (18:37)
[2016-05-29] MEDS: CEFTAZIDIME IVP SCH (18:37)
[2016-05-29 20:04] VITALS: BP 142/57
[2016-05-30 00:27] VITALS: BP 152/85
[2016-05-30 04:30] VITALS: BP 157/77
[2016-05-30] MEDS: NovoLOG Insulin Flexpen SUBQ SCH ×3 (05:50→16:30)
[2016-05-30] MEDS: Renagel 400mg cap ORAL SCH ×3 (05:50→17:20)
[2016-05-30] MEDS: HydrALAZINE 25mg tab ORAL SCH ×2 (05:50→13:28)
[2016-05-30 08:14] VITALS: BP 139/61
[2016-05-30 12:00] VITALS: BP 141/70
--- NOTE | 2016-05-30 12:08 | Consultation ---
DATE OF CONSULTATION: 05/24/2016 TIME SEEN: 3 p.m. CONSULTING PHYSICIAN: Ced Pal M.D. CHIEF COMPLAINT: Right arm cellulitis. BRIEF HISTORY: This is a 70-year-old female who lives at home with history of ESRD on dialysis, presented to [facility] ER last night with increased right arm swelling and redness, diagnosed with right arm cellulitis and admitted to telemetry floor for further care. Currently calm in bed, slightly weak, no complaints. PAST MEDICAL HISTORY: ESRD, hypertension, diabetes. PAST SURGICAL HISTORY: Shunt. MEDICATIONS: Include vancomycin, ceftazidime, morphine, Imodium, Norvasc, Renagel, Ambien, Naprosyn, Lopressor. ALLERGIES: Denies. SOCIAL HISTORY: No smoking. No alcohol. No intravenous drug use. FAMILY HISTORY: Noncontributory. REVIEW OF SYSTEMS: No chest pain. Slight shortness of breath. No nausea, vomiting, or diarrhea. PHYSICAL EXAMINATION: GENERAL: The patient is calm in bed, oriented x2, no acute distress. VITAL SIGNS: Temperature 97 degrees, pulse 85, respirations 17, and blood pressure 145/83. CARDIOVASCULAR: Distant without murmur. LUNGS: Poor air exchange. ABDOMEN: Bowel sounds are positive. Nontender and nondistended. EXTREMITIES: No cyanosis, clubbing, or edema. Right arm area slightly red and swollen. NEUROLOGIC: The patient moves all extremities slightly weak. LABORATORY AND DIAGNOSTIC DATA: Labs at this time show white count 2.0, hemoglobin and hematocrit 9.8 and 33, platelets 122,000. BMP, BUN 18, glucose . Troponin less than 0.3. ASSESSMENT: 1. Right arm swelling. 2. End-stage renal disease. 3. Pancytopenia. 4. Hypertension. 5. Diabetes. PLAN: 1. Continue premedications. 2. Wound care. 3. Antibiotics per Infectious Diseases. 4. Blood pressure and blood sugar control. 5. Dialysis. 6. PT/OT. 7. Dietary evaluation. 8. CBC and BMP in the morning. Ced Pal D.O. DR: Samreen JOB#: [id number] CC:
--- NOTE | 2016-05-30 13:34 | General Progress Note ---
Assessment/Plan Problem List: (1) Dizziness ICD Codes: R42 - Dizziness and giddiness SNOMED: 719605306 (2) Renal failure (3) Unable to ambulate ICD Codes: R26.2 - Unable to ambulate SNOMED: 779060828 (4) Hypertensive urgency, malignant ICD Codes: I10 - Essential (primary) hypertension SNOMED: 472653727 (5) Dizziness ICD Codes: R42 - Dizziness and giddiness SNOMED: 658657287 (6) ESRD (end stage renal disease) on dialysis ICD Codes: N18.6 - End stage renal disease; Z99.2 - Dependence on renal dialysis SNOMED: 059494594 (7) Diabetes ICD Codes: E11.9 - Diabetes SNOMED: 71813053 (8) Weakness ICD Codes: R53.1 - Weakness SNOMED: 82168656 (9) Cellulitis ICD Codes: L03.90 - Cellulitis, unspecified SNOMED: 763583774 Qualifiers: Status: stable, progressing, tolerating diet Assessment/Plan ot pt diet wound care abx dialysis cbc bmp am Subjective Constitutional: Reports: weakness Allergies: Coded Allergies: No Known Allergies (Verified , 05/25/09) All Systems: reviewed and negative except above Subjective calm getting dialysis Objective Last 24 Hour Vital Signs Date Time Temp Pulse Resp B/P Pulse Ox O2 Delivery O2 Flow Rate FiO2 05/30/16 13:28 141/70 05/30/16 12:00 96.9 69 18 141/70 100 Room Air 05/30/16 10:45 Room Air 2.0 28 05/30/16 09:00 69 141/70 05/30/16 08:14 97.3 65 18 139/61 98 Nasal Cannula 2.0 05/30/16 07:45 Nasal Cannula 2.0 28 05/30/16 07:44 98 Nasal Cannula 2.0 28 05/30/16 05:50 157/77 05/30/16 04:30 97.5 64 20 157/77 98 Room Air 05/30/16 00:27 97.5 65 20 152/85 99 Room Air 05/29/16 22:18 142/57 05/29/16 21:00 65 142/57 05/29/16 20:04 98.1 65 19 142/57 100 Nasal Cannula 2.0 05/29/16 19:42 Nasal Cannula 2.0 28 05/29/16 19:42 90 Nasal Cannula 2.0 28 05/29/16 16:02 97.6 63 20 136/68 97 Nasal Cannula 2.0 Intake and Output 05/29/16 05/30/16 18:59 06:59 Intake Total 360 ml 245 ml Balance 360 ml 245 ml Intake Oral 360 ml 245 ml Height (Feet): 5 Height (Inches): 2.00 Weight (Pounds): 149 General Appearance: lethargic EENT: normal ENT inspection Neck: normal alignment Cardiovascular: normal peripheral pulses, normal rate, regular rhythm Respiratory/Chest: chest wall non-tender, lungs clear, normal breath sounds Abdomen: normal bowel sounds, non tender, soft Extremities: normal inspection Edema: no edema noted Arm (L), no edema noted Arm (R), no edema noted Leg (L), no edema noted Leg (R), no edema noted Pedal (L), no edema noted Pedal (R), no edema noted Generalized Neurologic: responsive, motor weakness Skin: normal pigmentation, warm/dry ATILIO LOVING May 30, 2016 13:34
[2016-05-30] MEDS: DiphenhydrAMINE 50mg/ml Inj IVP PRN (13:35)
[2016-05-30 14:36] VITALS: BP 143/75
--- NOTE | 2016-05-30 15:24 | Infectious Diseases Prog Note ---
Assessment/Plan Assessment/Plan ASSESSMENT: 70 y/o female with: // RUE swelling r/o cellulitis, AVF infection - BCx(-) - doppler: patent AVF, no stenosis, occlusion, pseudoaneurysm or abscess // Chronic leukopenia / pancytopenia, afebrile // ESRD / HD with RUE AVF // Accelerated HTN // Negative MRSA, VRE screens // NKDA // DNR PLAN: - ok to DC off of ABX from ID standpoint. Finishes IV vancomycin, fortaz d# 7 today ( 05/23 SP unasyn x1 ) - f/u cultures - monitor CBC, temperatures - monitor BMP Subjective Allergies: Coded Allergies: No Known Allergies (Verified , 05/25/09) Subjective remains afebrile. no new complaint for possible DC Objective Vital Signs Last 24 Hour Vital Signs Date Time Temp Pulse Resp B/P Pulse Ox O2 Delivery O2 Flow Rate FiO2 05/30/16 14:36 97.3 75 18 143/75 100 Room Air 2.0 28 05/30/16 14:33 Room Air 2.0 28 05/30/16 13:28 141/70 05/30/16 12:00 96.9 69 18 141/70 100 Room Air 05/30/16 10:45 Room Air 2.0 28 05/30/16 09:00 69 141/70 05/30/16 08:14 97.3 65 18 139/61 98 Nasal Cannula 2.0 05/30/16 07:45 Nasal Cannula 2.0 28 05/30/16 07:44 98 Nasal Cannula 2.0 28 05/30/16 05:50 157/77 05/30/16 04:30 97.5 64 20 157/77 98 Room Air 05/30/16 00:27 97.5 65 20 152/85 99 Room Air 05/29/16 22:18 142/57 05/29/16 21:00 65 142/57 05/29/16 20:04 98.1 65 19 142/57 100 Nasal Cannula 2.0 05/29/16 19:42 Nasal Cannula 2.0 28 05/29/16 19:42 90 Nasal Cannula 2.0 28 05/29/16 16:02 97.6 63 20 136/68 97 Nasal Cannula 2.0 Height (Feet): 5 Height (Inches): 2.00 Weight (Pounds): 149 General Appearance: no acute distress Respiratory/Chest: no respiratory distress Cardiovascular: normal rate, regular rhythm Abdomen: normal bowel sounds, soft, non tender, non distended Current Medications Medications (Trade) Dose Ordered Sig/Celine Route PRN Reason Start Time Stop Time Status Last Admin Dose Admin Acetaminophen (Tylenol) 500 mg QID PRN ORAL Mild Pain/Temp > 100.5 05/23/16 20:15 06/22/16 20:14 05/23/16 21:58 Al Hydroxide/Mg Hydroxide (Mylanta) 30 ml FOUR TIMES A DAY PRN ORAL Stomach Pain 05/25/16 22:30 06/24/16 22:29 05/25/16 22:47 Amlodipine Besylate (Norvasc) 10 mg DAILY ORAL 05/24/16 09:00 06/23/16 08:59 05/29/16 08:40 Bisacodyl (Dulcolax) 10 mg DAILYPRN PRN RECTAL Constipation 05/29/16 09:00 06/28/16 08:59 Ceftazidime/ Dextrose (Fortaz/D5W 50ml) 55 ml @ 100 mls/hr Q24HRS IVP 05/25/16 18:00 05/31/16 17:59 05/29/16 18:37 Clonidine HCl (Catapres) 0.2 mg EVERY 2 HOURS PRN ORAL hypertension 05/23/16 19:45 06/22/16 19:44 Dextrose (Dextrose 50%) STAT PRN IV Hypoglycemia 05/23/16 20:15 06/22/16 20:14 Diphenhydramine HCl (Benadryl) 25 mg Q2H PRN IVP Itching 05/26/16 16:00 06/25/16 15:59 05/30/16 13:35 Hydralazine HCl (Apresoline) 75 mg Q8HR ORAL 05/26/16 14:00 06/25/16 13:59 05/30/16 05:50 Insulin Aspart (NovoLOG) BEFORE MEALS AND HS SUBQ 05/23/16 21:00 06/22/16 20:59 Loperamide HCl (Imodium) 4 mg Q6H PRN ORAL diarrhea 05/24/16 10:30 06/23/16 10:29 Metoprolol Tartrate (Lopressor) 100 mg EVERY 12 HOURS ORAL 05/23/16 21:00 06/22/16 20:59 05/29/16 08:41 Morphine Sulfate (Morphine Sulfate) 2 mg Q4H PRN IVP for pain 05/24/16 12:00 05/31/16 11:59 05/28/16 22:02 Ondansetron HCl (Zofran) 4 mg Q4H PRN IVP Nausea & Vomiting 05/26/16 05:30 06/25/16 05:29 05/26/16 10:51 Sevelamer HCl (Renagel) 400 mg TIAC ORAL 05/24/16 06:30 06/23/16 06:29 05/30/16 12:16 Vancomycin HCl 1 ea 1 ea DAILY PRN MISC Per rx protocol 05/24/16 15:15 06/23/16 15:14 Zolpidem Tartrate (Ambien) 5 mg HSPRN PRN ORAL Insomnia 05/24/16 03:15 06/23/16 03:14 MARLON BYRNES May 30, 2016 15:24
[2016-05-30 15:51] VITALS: BP 131/61
--- NOTE | 2016-05-30 16:53 | Cardiac Electrophysiology PN ---
Assessment/Plan Assessment/Plan 1. Hypertension. On metoprolol 100 mg twice a day, Norvasc 10 mg daily. Change Hydralazine to 100 bid. 2. End-stage renal disease, on hemodialysis. 3. Right arm edema and cellulitis. On Antibiotics 4. Anemia, secondary to renal failure. 5. DC planning today. YULI RN Subjective Subjective Alert in NAD.No events overnight.RN at bedside.Comfortable. Objective Last 24 Hour Vital Signs Date Time Temp Pulse Resp B/P Pulse Ox O2 Delivery O2 Flow Rate FiO2 05/30/16 15:51 98.8 74 21 131/61 93 Nasal Cannula 2.0 05/30/16 14:36 97.3 75 18 143/75 100 Room Air 2.0 28 05/30/16 14:33 Room Air 2.0 28 05/30/16 13:28 141/70 05/30/16 12:00 96.9 69 18 141/70 100 Room Air 05/30/16 10:45 Room Air 2.0 28 05/30/16 09:00 69 141/70 05/30/16 08:14 97.3 65 18 139/61 98 Nasal Cannula 2.0 05/30/16 07:45 Nasal Cannula 2.0 28 05/30/16 07:44 98 Nasal Cannula 2.0 28 05/30/16 05:50 157/77 05/30/16 04:30 97.5 64 20 157/77 98 Room Air 05/30/16 00:27 97.5 65 20 152/85 99 Room Air 05/29/16 22:18 142/57 05/29/16 21:00 65 142/57 05/29/16 20:04 98.1 65 19 142/57 100 Nasal Cannula 2.0 05/29/16 19:42 Nasal Cannula 2.0 28 05/29/16 19:42 90 Nasal Cannula 2.0 28 Intake and Output 05/29/16 05/30/16 19:00 07:00 Intake Total 360 ml 245 ml Balance 360 ml 245 ml Intake Oral 360 ml 245 ml Current Medications Medications (Trade) Dose Ordered Sig/Celine Route PRN Reason Start Time Stop Time Status Last Admin Dose Admin Acetaminophen (Tylenol) 500 mg QID PRN ORAL Mild Pain/Temp > 100.5 05/23/16 20:15 06/22/16 20:14 05/23/16 21:58 Al Hydroxide/Mg Hydroxide (Mylanta) 30 ml FOUR TIMES A DAY PRN ORAL Stomach Pain 05/25/16 22:30 06/24/16 22:29 05/25/16 22:47 Amlodipine Besylate (Norvasc) 10 mg DAILY ORAL 05/24/16 09:00 06/23/16 08:59 05/29/16 08:40 Bisacodyl (Dulcolax) 10 mg DAILYPRN PRN RECTAL Constipation 05/29/16 09:00 06/28/16 08:59 Ceftazidime/ Dextrose (Fortaz/D5W 50ml) 55 ml @ 100 mls/hr Q24HRS IVP 05/25/16 18:00 05/31/16 17:59 05/29/16 18:37 Clonidine HCl (Catapres) 0.2 mg EVERY 2 HOURS PRN ORAL hypertension 05/23/16 19:45 06/22/16 19:44 Dextrose (Dextrose 50%) STAT PRN IV Hypoglycemia 05/23/16 20:15 06/22/16 20:14 Diphenhydramine HCl (Benadryl) 25 mg Q2H PRN IVP Itching 05/26/16 16:00 06/25/16 15:59 05/30/16 13:35 Hydralazine HCl (Apresoline) 75 mg Q8HR ORAL 05/26/16 14:00 06/25/16 13:59 05/30/16 05:50 Insulin Aspart (NovoLOG) BEFORE MEALS AND HS SUBQ 05/23/16 21:00 06/22/16 20:59 Loperamide HCl (Imodium) 4 mg Q6H PRN ORAL diarrhea 05/24/16 10:30 06/23/16 10:29 Metoprolol Tartrate (Lopressor) 100 mg EVERY 12 HOURS ORAL 05/23/16 21:00 06/22/16 20:59 05/29/16 08:41 Morphine Sulfate (Morphine Sulfate) 2 mg Q4H PRN IVP for pain 05/24/16 12:00 05/31/16 11:59 05/28/16 22:02 Ondansetron HCl (Zofran) 4 mg Q4H PRN IVP Nausea & Vomiting 05/26/16 05:30 06/25/16 05:29 05/26/16 10:51 Sevelamer HCl (Renagel) 400 mg TIAC ORAL 05/24/16 06:30 06/23/16 06:29 05/30/16 12:16 Vancomycin HCl 1 ea 1 ea DAILY PRN MISC Per rx protocol 05/24/16 15:15 06/23/16 15:14 Zolpidem Tartrate (Ambien) 5 mg HSPRN PRN ORAL Insomnia 05/24/16 03:15 06/23/16 03:14 Objective HEAD AND NECK: No JVD. LUNGS: Clear. CARDIOVASCULAR: Regular S1 and S2 with 2/6 systolic murmur. ABDOMEN: Soft. EXTREMITIES: Right arm dialysis line BRITTA FRASER May 30, 2016 16:53
[2016-05-30] MEDS: CEFTAZIDIME IVP SCH (18:00)
[2016-05-30] MEDS: D5W IVP SCH (18:00)
[2016-05-30] MEDS ORDERED: NS 275ml ONE (19:12)
[2016-05-30] MEDS ORDERED: Tubing IV Secondary IV ONE (19:12)
[2016-05-30] MEDS ORDERED: Vancomycin 750mg/D5W 275ml IVPB ONE ×2 (19:30)
[2016-05-30] MEDS ORDERED: HydrALAZINE 50mg tab ORAL SCH (21:00)
--- NOTE | 2016-05-31 10:07 | Discharge Summary ---
Discharge Summary Hospital Course Date of Admission May 23, 2016 at 12:58 Date of Discharge May 30, 2016 at 19:13 Admitting Diagnosis CELLULITIES RIGHT ARM HPI Palmira D Umesh Keen is a 70 year old female who was admitted on May 23, 2016 at 12:58 for Right Arm Cellulitis Hospital Course dc summary dictated #[id number] Discharge Condition Upon Discharge: improving, stable Discharge Disposition Patient was discharged to Home with Home Health(06) Discharge Diagnoses: Discharge Instructions Discharge Instructions Special Instructions I have been assigned to complete a D/C Summary on this account. I was not involved in the patient management Meghan Solorzano NP (Vanchtein) May 31, 2016 10:07
--- NOTE | 2016-06-01 00:37 | Discharge Summary 2 SIG ---
DATE OF ADMISSION: 05/23/2016 DATE OF DISCHARGE: 05/30/2016 The patient was admitted under Dr. Thompson. REASON FOR ADMISSION: 70-year-old female presented to the emergency department with the right arm swelling after hemodialysis a day before. The patient has right upper extremity AV shunt. The patient has underlying history of hypertension and end-stage renal disease, on hemodialysis. The patient denied chest pain, palpitations, and shortness of breath. No fevers. No chills. No nausea. No vomiting. No abdominal pain. The patient with DNR status. In the emergency room, it was found that the patient was leukopenic and afebrile. The patient was admitted for further management. ADMITTING DIAGNOSES: 1. Arteriovenous fistula infection. 2. Cellulitis right upper extremity.. 3. End-stage renal disease. 4. Accelerated hypertension. 5. Anemia of chronic disease. HOSPITAL STAY:ID and Cardiology consults were requested. The Doppler of right upper extremity revealed no evidence of stenosis, occlusion, abscess, or pseudoaneurysm and indicated patent AV fistula. The patient was started on empiric antibiotics. Blood culture were negative. ID followed. No fevers. Still leukopenic, aaprently chronically, but with a trend up. ID cleared for discharge without antibiotics. The patient had a hemodialysis as per budget and policy analyst orders. Renal parameters and electrolytes were closely monitored. Blood pressure was managed with multiple regimen of antihypertensives medications. Cardiology closely followed the patient. The patient was on beta-charli, calcium channel charli, and hydralazine. Blood pressure was stable prior to discharge. Echocardiogram revealed ejection fracture of 60% to 65%. Moderate right ventricular hypertrophy and right ventricular systolic pressure of 99 consistent with severe pulmonary hypertension as well as severe tricuspid regurgitation. The patient need to follow up with the eyelet maker and possible outpatient treatment with a mortgage loan assistant for treatment of severe pulmonary hypertension, which could greatly contribute to worsening of her cardiopulmonary status. While in the hospital, supplemental oxygen and pulmonary toilet provided as needed. The patient with existing anemia of chronic renal disease. Hemoglobin and hematocrit were closely monitored and were stable. No trend down. Upon discharge, no fever, off antibiotics, stable blood pressure.The lab work was stable. Cardiology and ID cleared for discharge. The patient was discharged home with home health. DISCHARGE MEDICATIONS: See medication reconciliation list. FINAL DIAGNOSES: 1. Right upper extremity cellulitis. 2. Arteriovenous fistula infection. 3. Accelerated hypertension/hypertensive urgency 4. End-stage renal disease, on hemodialysis. 5. Anemia of chronic renal disease. 6. Severe pulmonary hypertension. 7. Severe tricuspid regurgitation. DISCHARGE INSTRUCTIONS: The patient to be followed up with the primary medical doctor and home health nurse and closely monitor cardiopulmonary status. Recommended followup with the mortgage loan assistant for treatment of severe pulmonary hypertension as well as to reinforce compliance with outpatient hemodialysis. Gianni Thompson M.D. I have been assigned to dictate discharge summary on this account and I was not involved in the patient's management. Meghan BowensCayuga Medical Centerefrem N.PMichaela DR: AILEEN JOB#: [id number] CC: NIKOLAS
--- NOTE | 2016-06-03 17:29 | Diagnostic Imaging Report ---
APPROVED REPORT CPT Code: 96188 Present Symptoms Comments: Chest pain Hx of CAD AV shunt BILATERAL: Imaging reveals a patent deep venous system bilaterally. There is no evidence of thrombus within the femoral, popliteal or tibial segments. The greater saphenous veins are also within normal limits. Doppler indicates pulsatile flow within these segments.
[2016-06-11] MEDS ORDERED: CATAPRES0.1 MG ORAL (21:46)
[2016-06-11] MEDS ORDERED: ASPIR 8181 MG ORAL (21:46)
[2016-06-11] MEDS ORDERED: METOPROLOL TART25 MG ORAL (21:46)
[2016-06-11] MEDS ORDERED: HYDRALAZINE HCL10 MG ORAL (21:46)
--- NOTE | 2016-06-13 14:22 | Diagnostic Imaging Report ---
APPROVED REPORT CPT Code: 18864 Present Symptoms Comments: Swelling R/O DVT ARTERIO-VENOUS FISTULA ASSESSMENT RIGHT UPPER EXTREMITY (Deep venous system): Imaging reveals patency of the internal jugular, subclavian, axillary and brachial veins. Doppler indicates normal spontaneous flow within these venous segments. The cephalic vein (superficial vein) was within normal limits. RIGHT UPPER EXTREMITY(Arterio-venous fistula): Imaging reveals patency of the arterio-venous fistula, the brachial artery to the basilic vein, at upper arm level. There is no evidence of stenosis, occlusion, pseudo-aneurysm or abscess. Velocities obtained from the fistula are as follows: Proximal brachial artery: 224cm/s anastomosis: 0.30cm, 246 cm/s Brachiall artery: 33cm/s
== END 2016-05-30 19:13 | disposition home health service (06) | DRG 314 ==
LOC: EMR 12:50 → 2E 12:58 → EDBEDREQ 18:07 → 4W 05-26 20:42
PROC: 5A1D60Z (ICD-10-PCS; principal; 2016-05-25)
DX: T82.7XXA Infection and inflammatory reaction due to other cardiac and vascular devices, implants and grafts, initial encounter (principal); N18.6 End stage renal disease; D61.818 Other pancytopenia; I12.0 Hypertensive chronic kidney disease with stage 5 chronic kidney disease or end stage renal disease; D69.6 Thrombocytopenia, unspecified; I27.2 Other secondary pulmonary hypertension; L03.114 Cellulitis of left upper limb; Y83.8 Other surgical procedures as the cause of abnormal reaction of the patient, or of later complication, without mention of misadventure at the time of the procedure; Z99.2 Dependence on renal dialysis; D63.1 Anemia in chronic kidney disease; I07.1 Rheumatic tricuspid insufficiency; E11.9 Type 2 diabetes mellitus without complications; Z66 Do not resuscitate; I16.0 Hypertensive urgency; R42 Dizziness and giddiness; R26.2 Difficulty in walking, not elsewhere classified
CPT/HCPCS: 36415; 71010; 80048; 80053; 80202; 82550; 82553; 82962; 83605; 84443; 84484; 85007; 85025; 87040; 87070; 87081; 87205; 93005; 93306; 93970; 93971; 94760; J1815; J2405

== ENCOUNTER 2016-06-08 10:48 | Emergency (ER) | payer MEDICARE, MEDICAID ==
[~2016-06-08] VITALS: Ht 157.5 cm; Wt 45.4 kg
[~2016-06-08 10:48] MED LIST changes: +HYDROCHLOROTHIA50 MG ORAL
[2016-06-08 12:00] VITALS: BP 142/78
--- NOTE | 2016-06-08 12:22 | Emergency Room Report ---
History of Present Illness General Chief Complaint: Skin Rash/Abscess Source: Patient Present Illness HPI 70 YOF BIBEMS from HD [facility] for "infected right AV access site." No other specifics from HD center. Patient denies fever/chills, pain to area, swelling or appreciable warmth. Patient states "I was already here for this and they cleared me!" Per review of EMR, patient was admitted here 05/23- for similar concern. Had sono of site confirming patency. She was seen by ID, started empirically on Abx but then cleared by ID after Blood Cx were negative. She was NOT discharged on outpatient Abx. She actually HAD dialysis as scehduled 2 days ago at same center. Allergies: Coded Allergies: No Known Allergies (Verified , 05/25/09) Patient History Past Medical History: HTN, renal disease, other - anemia Past Surgical History: other - Right AV fistula Pertinent Family History: none Social History: Denies: alcohol use, drug use, smoking Now: No Immunizations: UTD Nursing Documentation-PMH Past Medical History: No History, Except For Hx Cardiac Problems: Yes - Acute coronary syndrome Hx Hypertension: Yes Hx Pacemaker: No Hx Asthma: No Hx COPD: No Hx Diabetes: Yes Hx Cancer: No Hx Gastrointestinal Problems: Yes Hx Neurological Problems: Yes - Vazquez's Palsy Hx Cerebrovascular Accident: No - KIDNEY FAILURE Hx Transient Ischemic Attacks: Yes Hx Seizures: No Hx Dizziness: Yes Hx Syncope: Yes Hx Headaches: Yes Hx Weakness: Yes - BILATERAL LOWER EXTREMITIES Hx Fatigue: Yes Hx Neurologic Surgery: No Hx Brain Shunt: No Review of Systems All Other Systems: negative except mentioned in HPI Physical Exam Vital Signs Date Time Temp Pulse Resp B/P Pulse Ox O2 Delivery O2 Flow Rate FiO2 06/08/16 11:04 97.3 92 20 151/73 97 Room Air Sp02 EP Interpretation: reviewed, normal General Appearance: normal inspection, well appearing, no apparent distress, alert, GCS 15, non-toxic Head: normocephalic, atraumatic Eyes: bilateral eye EOMI, bilateral eye PERRL ENT: normal ENT inspection, hearing grossly normal, normal voice Neck: normal inspection, full range of motion, supple, no bony tend Respiratory: normal inspection, lungs clear, normal breath sounds, no respiratory distress, no retraction, no wheezing Cardiovascular #1: regular rate, rhythm, no edema Gastrointestinal: normal inspection, normal bowel sounds, non tender, soft, no guarding, no hernia Genitourinary: no CVA tenderness Musculoskeletal: normal inspection, back normal, normal range of motion, Rikki' s Sign negative Neurologic: normal inspection, alert, oriented x3, responsive, associate research scientist III-XII nml as tested, motor strength/tone normal, speech normal Psychiatric: normal inspection, judgement/insight normal, mood/affect normal Skin: other - Right AV access site: Palpable thrill. No appreciable warmth. No erythema or sign of infection. There is some mild scabbing of access entry sites. Medical Decision Making Diagnostic Impression: Primary Impression: General medical exam ER Course Evaluation for ?infection of right AV fistula site VSS. Afebrile Patient is alert and oriented. Very well appearing No signs of systemic illness CXR clear. No congestion. No PNA. Patient in no acute respi distress requiring emergent dialysis As per recent clearance by ID and Renal, highly unlikely acute infection at this time Site is patent - was just used 2 days ago DC directly back HD center for scheduled HD EKG Diagnostic Results Rate: normal Rhythm: NSR ST Segments: no acute changes ASA given to the pt in ED: No Rhythm Strip Diag. Results EP Interpretation: yes Rate: 77 Rhythm: NSR, no PVC's, no ectopy Chest X-Ray Diagnostic Results EP Interpretation: Yes Findings: no consolidation, no effusion, no pneumothorax, no acute cardiopulmonary disease Number of Views: 1 Last Vital Signs Date Time Temp Pulse Resp B/P Pulse Ox O2 Delivery O2 Flow Rate FiO2 06/08/16 12:00 78 18 142/78 98 Room Air 06/08/16 11:04 97.3 Status: improved Disposition: HOME, SELF-CARE Condition: Improved Additional Instructions: - Right AV access is NOT infected - Patient was CLEARED by both Infectious Disease and Renal Specialists on May 30 after 10-day stay in our hospital. Blood Cultures were NEGATIVE. - Patient should have regularly scheduled dialysis today AMAURY INFANTE M.D. Jun 08, 2016 12:22
[2016-06-08 12:47] VITALS: BP 142/78
--- NOTE | 2016-06-08 17:04 | Diagnostic Imaging Report ---
Indication: Chest pain Technique: One view of the chest Comparison: 05/23/2016 Findings: The heart is enlarged. There is a calcified granuloma in the left lung base. Lungs and pleural spaces otherwise clear. A right innominate venous stent is again demonstrated. Extensive surgical clips are seen in both arms Impression: Cardiomegaly No acute cardiopulmonary process Evidence of old granulomatous disease Postsurgical changes, as described
[2016-06-11] MEDS ORDERED: ASPIR 8181 MG ORAL (21:46)
[2016-06-11] MEDS ORDERED: CATAPRES0.1 MG ORAL (21:46)
[2016-06-11] MEDS ORDERED: HYDRALAZINE HCL10 MG ORAL (21:46)
[2016-06-11] MEDS ORDERED: METOPROLOL TART25 MG ORAL (21:46)
--- NOTE | 2016-06-12 19:09 | Cardiology Report ---
APPROVED REPORT EKG Measurement Heart [id number] Normal sinus rhythm Prolonged QT Abnormal ECG
== END 2016-06-08 12:48 | disposition home or self-care (01) ==
LOC: EMR 11:52 → CANBEDREQ 12:15 → EMR 12:48
DX: R23.4 Changes in skin texture (principal); I10 Essential (primary) hypertension; E11.9 Type 2 diabetes mellitus without complications; D64.9 Anemia, unspecified; N19 Unspecified kidney failure; I51.7 Cardiomegaly
CPT/HCPCS: 71010; 93005; 99283

== ENCOUNTER 2016-06-11 21:52 | Inpatient (IN) | payer MEDICARE, MEDICAID ==
[~2016-06-11] VITALS: Ht 160 cm; Wt 54.4 kg
[~2016-06-11 21:52] MED LIST changes: +ASPIR 8181 MG ORAL; +METOPROLOL TART25 MG ORAL
[2016-06-11 21:57] VITALS: BP 177/77
--- NOTE | 2016-06-11 22:06 | Emergency Room Report ---
History of Present Illness General Chief Complaint: Dyspnea/Respdistress Source: Patient, Medical Record, EMS Present Illness HPI This is a 70-year-old female well-known visitor here. She has a history of renal failure on hemodialysis. She presents with chief complaint of shortness of breath. She missed her dialysis yesterday. She said she woke up and felt dizzy so she did not go to dialysis. I progressively worse today and she called 911. Per EMS, room air oxygenation was 89%. It came up to mid 90 percentile after oxygen. Patient denies any chest pain. No nausea no vomiting. Worse with exertion. Better with rest. No other complaint. Similar symptoms in the past. Allergies: Coded Allergies: No Known Allergies (Verified , 05/25/09) Patient History Past Medical History: see triage record, old chart reviewed, HTN, renal disease , dialysis Past Surgical History: other Pertinent Family History: none Social History: Denies: smoking Now: No Immunizations: other Reviewed Nursing Documentation: PMH: Agreed, PSxH: Agreed Nursing Documentation-PMH Hx Cardiac Problems: Yes - Acute coronary syndrome Hx Hypertension: Yes Hx Pacemaker: No Hx Asthma: No Hx COPD: No Hx Diabetes: Yes Hx Cancer: No Hx Gastrointestinal Problems: Yes Hx Dialysis: Yes Hx Neurological Problems: Yes - Vazquez's Palsy Hx Cerebrovascular Accident: Yes Hx Transient Ischemic Attacks: Yes Hx Seizures: No Hx Dizziness: Yes Hx Syncope: Yes Hx Headaches: Yes Hx Weakness: Yes - BILATERAL LOWER EXTREMITIES Hx Fatigue: Yes Hx Neurologic Surgery: No Hx Brain Shunt: No Review of Systems Eye: Denies: blurred vision, eye pain ENT: Denies: ear pain, nose congestion, throat swelling Respiratory: Reports: shortness of breath, Denies: cough Cardiovascular: Denies: chest pain, palpitations Gastrointestinal: Denies: abdominal pain, diarrhea, nausea, vomiting Musculoskeletal: Denies: back pain, joint pain Skin: Denies: rash Neurological: Denies: headache, numbness Endocrine: Denies: increased thirst, increased urine Hematologic/Lymphatic: Denies: easy bruising All Other Systems: negative except mentioned in HPI Physical Exam Vital Signs Date Time Temp Pulse Resp B/P Pulse Ox O2 Delivery O2 Flow Rate FiO2 06/11/16 21:41 98.2 106 18 189/86 95 Nasal Cannula 4.0 vitals with hypertension Sp02 EP Interpretation: reviewed, normal General Appearance: alert, mild distress, Chronically Ill Head: normocephalic, atraumatic Eyes: bilateral eye EOMI, bilateral eye PERRL ENT: hearing grossly normal, normal pharynx Neck: full range of motion, supple, no meningismus Respiratory: chest non-tender, rales Cardiovascular #1: regular rate, rhythm, no murmur Gastrointestinal: normal bowel sounds, non tender, no mass, no organomegaly, no bruit, non-distended Musculoskeletal: back normal, normal range of motion Neurologic: alert, oriented x3 Psychiatric: mood/affect normal Skin: warm/dry Medical Decision Making Diagnostic Impression: Primary Impression: Fluid overload Qualified Codes: E87.70 - Fluid overload, unspecified Additional Impressions: Hypertension Qualified Codes: I10 - Essential (primary) hypertension Anemia in chronic kidney disease (CKD) Respiratory distress ER Course Patient presents with rest or distress secondary to fluid overloaded from noncompliance with dialysis. Potassium level was normal. She is comfortable with oxygen. Will admit for dialysis. No evidence of pneumonia, ACS, PE, dissection to name a few. Lab Results Impression labs at baseline EKG Diagnostic Results Rate: normal Rhythm: NSR ST Segments: no acute changes Rhythm Strip Diag. Results EP Interpretation: yes Rate: 90 Rhythm: NSR, no PVC's, no ectopy Chest X-Ray Diagnostic Results EP Interpretation: Yes Findings: no consolidation, no effusion, no pneumothorax, other - Vascular congestion Number of Views: 1 Last Vital Signs Date Time Temp Pulse Resp B/P Pulse Ox O2 Delivery O2 Flow Rate FiO2 06/11/16 21:59 97 17 Nasal Cannula 4.0 06/11/16 21:57 98.1 177/77 100 Status: improved Disposition: ADMITTED INPATIENT Condition: Serious BENITO BRADEN M.D. Jun 11, 2016 22:06
[2016-06-11] MEDS ORDERED: Aspirin Baby 81mg ORAL ONE (22:15)
[2016-06-11 22:45] LABS: BASOPHILS % (AUTO) 2.2 % (0.0-2.0); EOSINOPHILS % (AUTO) 2.6 % (0.0-3.0); LYMPHOCYTES % (AUTO) 15.4 % (20.0-45.0); MEAN CORPUSCULAR HGB CONC 31.4 G/DL (32.0-36.0); MEAN CORPUSCULAR VOLUME 102 FL (80-99); MEAN PLATELET VOLUME 7.1 FL (6.5-10.1); MONOCYTES % (AUTO) 11.3 % (1.0-10.0); NEUTROPHILS % (AUTO) 68.5 % (45.0-75.0); PLATELET COUNT 146 K/UL (150-450); RED BLOOD COUNT 2.83 M/UL (4.20-5.40); RED CELL DISTRIBUTION WIDTH 19.4 % (11.6-14.8); WHITE BLOOD COUNT 4.4 K/UL (4.8-10.8)
[2016-06-11 22:58] LABS: TROPONIN I < 0.30 ng/mL (<=0.30)
[2016-06-11 23:12] LABS: ALANINE AMINOTRANSFERASE 10 U/L (3-33); ALBUMIN/GLOBULIN RATIO 1.2 (1.0-2.7); ANION GAP 23 (5-15); ASPARTATE AMINO TRANSFERASE 21 U/L (5-40); CALCIUM 9.5 mg/dL (8.6-10.2); CARBON DIOXIDE 25 mEQ/L (20-30); CHLORIDE 90 mEQ/L (98-107); CREATININE 7.3 mg/dL (0.5-0.9); GLOMERULAR FILTRATION RATE 6.8 mL/min (>60); HEMOLYSIS 61; POTASSIUM 4.7 mEQ/L (3.4-4.9); SODIUM 138 mEQ/L (135-145); TOTAL PROTEIN 7.7 g/dL (6.6-8.7)
[2016-06-11 23:23] LABS: CKMB < 1.5 ng/mL (< 3.8)
[2016-06-11 23:30] VITALS: BP 151/66
[2016-06-12] VITALS (7 sets, daily range): BP systolic 137–178; BP diastolic 69–85
--- NOTE | 2016-06-12 10:22 | Diagnostic Imaging Report ---
Indication: SOB Technique: One view of the chest Comparison: 06/08/2016 Findings: The heart is enlarged. The lungs and pleural spaces are clear. Again demonstrated is a right innominate venous stent. Calcified granuloma versus calcified breast lesion projects at the left lung base. No significant change Impression: Cardiomegaly. No acute process
--- NOTE | 2016-06-12 12:12 | Cardiology Report ---
APPROVED REPORT EKG Measurement Heart [id number] Normal sinus rhythm Prolonged QT Abnormal ECG
[2016-06-12] MEDS ORDERED: DiphenhydrAMINE 50mg/ml Inj IVP PRN (15:30)
[2016-06-12] MEDS ORDERED: Milk of Magnesia 30ml Ud ORAL PRN (16:30)
[2016-06-12] MEDS ORDERED: Miralax 17gm pkt ORAL PRN (16:30)
[2016-06-12] MEDS ORDERED: DuoNeb 0.5-3(2.5)mg/3ml neb HHN PRN (16:30)
--- NOTE | 2016-06-12 16:51 | Nephrology Progress Note ---
Assessment/Plan Problem List: (1) Congestive heart failure (CHF) (2) Dyspnea (3) Arrhythmia (4) ESRD (end stage renal disease) on dialysis (5) Hypertension (6) Generalized weakness (7) Anemia in chronic kidney disease (CKD) (8) Fluid overload Plan H&P dictated # [id number] Subjective Constitutional: Denies: chills, diaphoresis, fever, malaise, no symptoms, other , weakness HEENT: Denies: blurred vision, double vision, ear discharge, ear pain, eye pain , mouth pain, mouth swelling, no symptoms, nose congestion, nose pain, other, tearing, throat pain, throat swelling Genitourinary: Denies: burning, discharge, flank pain, frequency, hematuria, incontinence, no symptoms, other, pain, urgency Neurologic/Psychiatric: Denies: anxiety, depressed, emotional problems, headache, no symptoms, numbness, other, paresthesia, pre-existing deficit, seizure, tingling, tremors, weakness Objective Objective Last 24 Hour Vital Signs Date Time Temp Pulse Resp B/P Pulse Ox O2 Delivery O2 Flow Rate FiO2 06/12/16 16:17 Nasal Cannula 06/12/16 12:00 79 06/12/16 11:26 96.3 85 18 153/78 95 Nasal Cannula 2.0 06/12/16 11:00 Nasal Cannula 3.0 06/12/16 11:00 Nasal Cannula 3.0 06/12/16 08:00 84 06/12/16 07:47 96.1 90 18 164/82 97 Nasal Cannula 3.0 06/12/16 07:15 98.1 84 18 164/69 98 Nasal Cannula 3.0 06/12/16 06:11 98.1 84 18 164/69 98 Nasal Cannula 3.0 06/12/16 04:13 98.1 84 25 167/76 99 Nasal Cannula 3.0 06/12/16 01:45 98.1 90 22 161/71 96 Nasal Cannula 3.0 06/11/16 23:30 98.1 79 23 151/66 100 Nasal Cannula 3.0 06/11/16 21:59 97 17 Nasal Cannula 4.0 06/11/16 21:57 98.1 97 17 177/77 100 Nasal Cannula 4.0 06/11/16 21:41 98.2 106 18 189/86 95 Nasal Cannula 4.0 Intake and Output 06/11/16 06/12/16 19:00 07:00 Intake Total 30 ml Balance 30 ml Intake Oral 30 ml Laboratory Tests 06/11/16 22:27: White Blood Count 4.4L, Red Blood Count 2.83L, Hemoglobin 9.1L, Hematocrit 28.8L , Mean Corpuscular Volume 102H, Mean Corpuscular Hemoglobin 32.0H, Mean Corpuscular Hemoglobin Concent 31.4L, Red Cell Distribution Width 19.4H, Platelet Count 146L, Mean Platelet Volume 7.1, Neutrophils (%) (Auto) 68.5, Lymphocytes (%) (Auto) 15.4L, Monocytes (%) (Auto) 11.3H, Eosinophils (%) (Auto ) 2.6, Basophils (%) (Auto) 2.2H, Sodium Level 138, Potassium Level 4.7, Chloride Level 90L, Carbon Dioxide Level 25, Anion Gap 23H, Blood Urea Nitrogen 24H, Creatinine 7.3H, Estimat Glomerular Filtration Rate 6.8, Glucose Level 90, Calcium Level 9.5, Total Bilirubin 0.6, Aspartate Amino Transf (AST/SGOT) 21, Alanine Aminotransferase (ALT/SGPT) 10, Alkaline Phosphatase 75, Total Creatine Kinase 35, Creatine Kinase MB < 1.5, Troponin I < 0.30, Pro-B-Type Natriuretic Peptide [id number], Total Protein 7.7, Albumin 4.2, Globulin 3.5, Albumin/Globulin Ratio 1.2 Height (Feet): 5 Height (Inches): 3.00 Weight (Pounds): 120 General Appearance: no apparent distress, alert EENT: normal ENT inspection Neck: normal alignment, supple Cardiovascular: normal rate, regular rhythm, no JVD Respiratory/Chest: lungs clear, normal breath sounds Abdomen: non tender, soft, no organomegaly Extremities: normal range of motion, non-tender Neurologic: alert, oriented x 3, responsive, normal mood/affect Faith Bianchi N.P. Jun 12, 2016 16:51
[2016-06-12] MEDS: Renagel 400mg cap ORAL SCH (17:27)
[2016-06-12] MEDS: NovoLOG Insulin Flexpen SUBQ SCH ×2 (17:28→21:00)
--- NOTE | 2016-06-12 19:40 | Cardiac Electrophysiology PN ---
Subjective Subjective [id number] Objective Last 24 Hour Vital Signs Date Time Temp Pulse Resp B/P Pulse Ox O2 Delivery O2 Flow Rate FiO2 06/12/16 17:28 178/85 06/12/16 16:17 Nasal Cannula 06/12/16 16:00 97.3 90 22 178/85 100 Room Air 06/12/16 12:00 79 06/12/16 11:26 96.3 85 18 153/78 95 Nasal Cannula 2.0 06/12/16 11:00 Nasal Cannula 3.0 06/12/16 11:00 Nasal Cannula 3.0 06/12/16 08:00 84 06/12/16 07:47 96.1 90 18 164/82 97 Nasal Cannula 3.0 06/12/16 07:15 98.1 84 18 164/69 98 Nasal Cannula 3.0 06/12/16 06:11 98.1 84 18 164/69 98 Nasal Cannula 3.0 06/12/16 04:13 98.1 84 25 167/76 99 Nasal Cannula 3.0 06/12/16 01:45 98.1 90 22 161/71 96 Nasal Cannula 3.0 06/11/16 23:30 98.1 79 23 151/66 100 Nasal Cannula 3.0 06/11/16 21:59 97 17 Nasal Cannula 4.0 06/11/16 21:57 98.1 97 17 177/77 100 Nasal Cannula 4.0 06/11/16 21:41 98.2 106 18 189/86 95 Nasal Cannula 4.0 Intake and Output 06/11/16 06/12/16 19:00 07:00 Intake Total 30 ml Balance 30 ml Intake Oral 30 ml Laboratory Tests Test 06/11/16 22:27 White Blood Count 4.4 K/UL (4.8-10.8) L Red Blood Count 2.83 M/UL (4.20-5.40) L Hemoglobin 9.1 G/DL (12.0-16.0) L Hematocrit 28.8 % (37.0-47.0) L Mean Corpuscular Volume 102 FL (80-99) H Mean Corpuscular Hemoglobin 32.0 PG (27.0-31.0) H Mean Corpuscular Hemoglobin Concent 31.4 G/DL (32.0-36.0) L Red Cell Distribution Width 19.4 % (11.6-14.8) H Platelet Count 146 K/UL (150-450) L Mean Platelet Volume 7.1 FL (6.5-10.1) Neutrophils (%) (Auto) 68.5 % (45.0-75.0) Lymphocytes (%) (Auto) 15.4 % (20.0-45.0) L Monocytes (%) (Auto) 11.3 % (1.0-10.0) H Eosinophils (%) (Auto) 2.6 % (0.0-3.0) Basophils (%) (Auto) 2.2 % (0.0-2.0) H Sodium Level 138 mEQ/L (135-145) Potassium Level 4.7 mEQ/L (3.4-4.9) Chloride Level 90 mEQ/L (98-107) L Carbon Dioxide Level 25 mEQ/L (20-30) Anion Gap 23 (5-15) H Blood Urea Nitrogen 24 mg/dL (7-23) H Creatinine 7.3 mg/dL (0.5-0.9) H Estimat Glomerular Filtration Rate 6.8 mL/min (>60) Glucose Level 90 mg/dL (74-106) Calcium Level 9.5 mg/dL (8.6-10.2) Total Bilirubin 0.6 mg/dL (0.0-1.2) Aspartate Amino Transf (AST/SGOT) 21 U/L (5-40) Alanine Aminotransferase (ALT/SGPT) 10 U/L (3-33) Alkaline Phosphatase 75 U/L (35-104) Total Creatine Kinase 35 U/L (26-140) Creatine Kinase MB < 1.5 ng/mL (< 3.8) Troponin I < 0.30 ng/mL (<=0.30) Pro-B-Type Natriuretic Peptide 80708 pg/mL (0-125) H Total Protein 7.7 g/dL (6.6-8.7) Albumin 4.2 g/dL (3.5-5.2) Globulin 3.5 g/dL Albumin/Globulin Ratio 1.2 (1.0-2.7) BRITTA FRASER Jun 12, 2016 19:40
[2016-06-12] MEDS ORDERED: cloNIDine 0.2mg Tab ORAL PRN (19:45)
[2016-06-12] MEDS: Heparin 5000 units/ml inj SUBQ SCH (21:00)
[2016-06-12] MEDS: HydrALAZINE 50mg tab ORAL SCH (22:00)
[2016-06-13] MEDS: HydrALAZINE 50mg tab ORAL SCH ×3 (00:11→16:00)
[2016-06-13 00:20] VITALS: BP 122/67
[2016-06-13 04:25] VITALS: BP 94/59
--- NOTE | 2016-06-13 04:38 | HX and Phyl Repo 2 Sig ---
DATE OF ADMISSION: 06/11/2016 HISTORY OF PRESENT ILLNESS: The patient is a pleasant 70-year-old female, well known to me, who was admitted for shortness of breath. According to the patient, she was at home yesterday when she started feeling her heartbeat a little faster and she also stated that she was weak and was unable to get out of bed. She then managed somehow to call the paramedics to take her to the emergency room. On arrival, she denied chest pain. No fever. No chills. No nausea. No vomiting. PAST MEDICAL HISTORY: Includes end-stage renal disease, on hemodialysis, hypertension, and diabetes. PAST SURGICAL HISTORY: She has a shunt. ALLERGIES: She has no known allergies. MEDICATIONS: Amlodipine, baby aspirin, clonidine, hydralazine, hydrochlorothiazide, metoprolol, and Renagel. SOCIAL HISTORY: The patient lives at home with family. Denies any history of illicit drug use. No alcohol use. No smoking history. FAMILY HISTORY: Noncontributory. REVIEW OF SYSTEMS: A 12-point review of system was reviewed with the patient and positive as stated in history of present illness. PHYSICAL EXAMINATION: VITAL SIGNS: Blood pressure 153/78, heart rate 85, temperature 98.3 degrees, and O2 saturation is 95% on 2 liters. HEENT: Head is normocephalic and atraumatic with moist mucous membranes. Pupils are round and reactive to light and accommodation. NECK: Supple. No JVD. LUNGS: Diminished bilaterally. No wheezing. CARDIOVASCULAR: Regular rate and rhythm. No murmurs. No gallops. ABDOMEN: Soft and nontender. Positive bowel sounds in all 4 quadrants. EXTREMITIES: No edema, no cyanosis, and no clubbing. NEUROLOGIC: The patient is awake, alert, and oriented x3 with no focal deficits. LABORATORY DATA: CBC shows a white count of 4.4, hemoglobin 9.1, hematocrit 28.8, and platelet count of 146,000. BMP shows a sodium 138, potassium 4.7, chloride 90, bicarbonate 25, BUN 24, creatinine 7.3, [place] [address]. RADIOLOGIC FINDINGS: Chest x-ray shows cardiomegaly with no acute process. ASSESSMENT: 1. End-stage renal disease, on hemodialysis. 2. Congestive heart failure. 3. Dyspnea. 4. Hypertension. 5. Anemia of chronic kidney disease. 6. Thrombocytopenia. 7. Diabetes. PLAN: Plan is to dialyze this patient and to continue hemodialysis every Sunday, , and Saturdays as scheduled. Blood pressure control. Cardiology consult with Dr. Burdick. Monitor patient's vital signs. Monitor H and H and transfuse as needed. We will monitor the patient's electrolytes. Supplemental oxygen as needed. DVT prophylaxis with heparin. We will monitor patient's overall response to treatment. Gianni Thompson M.D. Faith Bianchi DR: ENRIQUE JOB#: [id number] CC:
--- NOTE | 2016-06-13 05:17 | Consultation ---
DATE OF CONSULTATION: 06/12/2016 CARDIOLOGY CONSULTATION CONSULTING PHYSICIAN: Sharath Burdick M.D. REFERRING PHYSICIAN: Gianni Thompson M.D. REASON FOR CONSULTATION: Management of hypertension and congestive heart failure. HISTORY OF PRESENT ILLNESS: The patient is a very pleasant lady with history of hypertension and end-stage renal disease on hemodialysis as well as history of right arm edema cellulitis as well as anemia, who was just discharged about 2 weeks ago. The patient was readmitted to the hospital for increased swelling and volume overload and congestive heart failure. The patient's blood pressure was also as high as 189/86 on admission. The patient was admitted and a Cardiology consultation was obtained for further evaluation and management. PAST MEDICAL HISTORY: 1. Hypertension. 2. End-stage renal disease, on hemodialysis. 3. Diabetes. 4. Congestive heart failure with diastolic dysfunction. 5. Cellulitis and edema. FAMILY HISTORY: Noncontributory. SOCIAL HISTORY: She does not smoke or drink alcohol. REVIEW OF SYSTEMS: Review of systems was thoroughly performed and was negative other than what was mentioned in the history of present illness. PHYSICAL EXAMINATION: VITAL SIGNS: Blood pressure is 178/85, pulse 90, respirations 22, and temperature 97.3 degrees. HEAD AND NECK: Showed no JVD. LUNGS: Decreased breath sounds. CARDIOVASCULAR: Shows regular S1 and S2 with soft systolic murmur. ABDOMEN: Soft. EXTREMITIES: Have significant right arm edema and lower extremity edema to less extent. LABORATORY DATA: Labs show white count of 4.4, hemoglobin 9.1, hematocrit 28.8, and platelet count 146,000. Sodium 138, potassium 4.7, BUN 20, creatinine 0.3, and glucose of 90. Troponin is negative. BNP is 44,000. ASSESSMENT AND PLAN: 1. Congestive heart failure due to diastolic dysfunction. The patient will be getting hemodialysis. Her last echocardiogram on 05/24/2016 showed ejection fraction of 60% to 65% and no evidence of pericardial effusion. This is due to hypertensive heart disease. 2. Accelerated hypertension. The patient is already on hemodialysis on Norvasc 10 mg daily. She is on Lopressor 50 mg and clonidine 0.1 mg every six hours and hydralazine 50 mg three times daily. We will add p.r.n. clonidine to her medical regimen. The blood pressure remains persistently elevated. I will increase hydralazine to 100 mg three times daily. 3. End-stage renal disease, on hemodialysis. 4. Right arm edema. 5. Anemia secondary to renal failure and anemia of chronic disease. Thank you very much, Dr. Thompson, for allowing me to participate in the care of this patient. Please do not hesitate to contact me for any questions regarding my evaluation. Sharath Burdick M.D. DR: MINH JOB#: [id number] CC:
[2016-06-13] MEDS: NovoLOG Insulin Flexpen SUBQ SCH ×4 (06:30→20:25)
[2016-06-13 08:02] LABS: BASOPHILS % (AUTO) 1.4 % (0.0-2.0); EOSINOPHILS % (AUTO) 2.8 % (0.0-3.0); LYMPHOCYTES % (AUTO) 22.8 % (20.0-45.0); MEAN CORPUSCULAR HEMOGLOBIN 32.8 PG (27.0-31.0); MEAN CORPUSCULAR HGB CONC 32.6 G/DL (32.0-36.0); MEAN CORPUSCULAR VOLUME 101 FL (80-99); MEAN PLATELET VOLUME 7.7 FL (6.5-10.1); MONOCYTES % (AUTO) 10.2 % (1.0-10.0); NEUTROPHILS % (AUTO) 62.8 % (45.0-75.0); PLATELET COUNT 159 K/UL (150-450); RED BLOOD COUNT 2.98 M/UL (4.20-5.40); RED CELL DISTRIBUTION WIDTH 18.9 % (11.6-14.8); WHITE BLOOD COUNT 3.5 K/UL (4.8-10.8)
[2016-06-13 08:21] VITALS: BP 119/68
[2016-06-13 08:28] LABS: TROPONIN I < 0.30 ng/mL (<=0.30)
[2016-06-13 08:33] LABS: CALCIUM 9.8 mg/dL (8.6-10.2); CREATININE 5.2 mg/dL (0.5-0.9); GLOMERULAR FILTRATION RATE 9.9 mL/min (>60); POTASSIUM 4.9 mEQ/L (3.4-4.9)
[2016-06-13] MEDS: Renagel 400mg cap ORAL SCH ×3 (08:49→17:15)
[2016-06-13] MEDS: Aspirin EC 81mg tab ORAL SCH (08:49)
[2016-06-13] MEDS: Heparin 5000 units/ml inj SUBQ SCH ×3 (08:51→21:00)
--- NOTE | 2016-06-13 09:30 | Cardiac Electrophysiology PN ---
Assessment/Plan Assessment/Plan 1. Congestive heart failure due to diastolic dysfunction due to hypertensive heart disease. On hemodialysis. Her last echocardiogram on 05/24/2016 showed ejection fraction of 60% to 65% and no evidence of pericardial effusion. 2. Accelerated hypertension. SBP 100 and 90s on Norvasc 10 mg daily, Lopressor 50 mg BID and hydralazine 50 mg three times daily. DC Clonidine. 3. End-stage renal disease, on hemodialysis. 4. Right arm edema. 5. Anemia secondary to renal failure and anemia of chronic disease. Subjective Subjective Feeling better. No chest pain or SOB. No SVT or VT overnight. Objective Last 24 Hour Vital Signs Date Time Temp Pulse Resp B/P Pulse Ox O2 Delivery O2 Flow Rate FiO2 06/13/16 08:21 97.2 66 18 119/68 97 Nasal Cannula 2.0 06/13/16 08:00 94/59 06/13/16 06:00 108/57 06/13/16 04:25 97.9 78 20 94/59 96 Room Air 06/13/16 04:00 81 06/13/16 00:20 97.0 61 20 122/67 96 Nasal Cannula 2.0 06/13/16 00:11 122/74 06/13/16 00:11 122/74 06/13/16 00:00 83 06/12/16 22:00 102/60 06/12/16 21:00 77 140/66 06/12/16 20:00 97.0 76 20 137/71 93 Room Air 06/12/16 20:00 79 06/12/16 17:28 178/85 06/12/16 16:17 Nasal Cannula 06/12/16 16:00 97.3 90 22 178/85 100 Room Air 06/12/16 16:00 71 06/12/16 12:00 79 06/12/16 11:26 96.3 85 18 153/78 95 Nasal Cannula 2.0 06/12/16 11:00 Nasal Cannula 3.0 06/12/16 11:00 Nasal Cannula 3.0 Intake and Output 06/12/16 06/13/16 19:00 07:00 Intake Total 30 ml 280 ml Output Total 2600 ml Balance -2570 ml 280 ml Intake Oral 30 ml 280 ml Output Hemodialysis UF 2600 ml # Voids 1 # Bowel Movements 2 Laboratory Tests Test 06/12/16 21:02 06/13/16 07:20 D-Dimer 762 ng/mL (<500) H White Blood Count 3.5 K/UL (4.8-10.8) L Red Blood Count 2.98 M/UL (4.20-5.40) L Hemoglobin 9.8 G/DL (12.0-16.0) L Hematocrit 30.0 % (37.0-47.0) L Mean Corpuscular Volume 101 FL (80-99) H Mean Corpuscular Hemoglobin 32.8 PG (27.0-31.0) H Mean Corpuscular Hemoglobin Concent 32.6 G/DL (32.0-36.0) Red Cell Distribution Width 18.9 % (11.6-14.8) H Platelet Count 159 K/UL (150-450) Mean Platelet Volume 7.7 FL (6.5-10.1) Neutrophils (%) (Auto) 62.8 % (45.0-75.0) Lymphocytes (%) (Auto) 22.8 % (20.0-45.0) Monocytes (%) (Auto) 10.2 % (1.0-10.0) H Eosinophils (%) (Auto) 2.8 % (0.0-3.0) Basophils (%) (Auto) 1.4 % (0.0-2.0) Sodium Level 140 mEQ/L (135-145) Potassium Level 4.9 mEQ/L (3.4-4.9) Chloride Level 93 mEQ/L (98-107) L Carbon Dioxide Level 32 mEQ/L (20-30) H Anion Gap 15 (5-15) Blood Urea Nitrogen 19 mg/dL (7-23) Creatinine 5.2 mg/dL (0.5-0.9) H Estimat Glomerular Filtration Rate 9.9 mL/min (>60) Glucose Level 100 mg/dL (74-106) Calcium Level 9.8 mg/dL (8.6-10.2) Troponin I < 0.30 ng/mL (<=0.30) Pro-B-Type Natriuretic Peptide Pending Triglycerides Level Pending Cholesterol Level Pending LDL Cholesterol Pending HDL Cholesterol Pending Cholesterol/HDL Ratio Pending Objective HEAD AND NECK: Showed no JVD. LUNGS: Decreased breath sounds. CARDIOVASCULAR: Shows regular S1 and S2 with soft systolic murmur. ABDOMEN: Soft. EXTREMITIES: Have significant right arm edema and lower extremity edema to less extent. BRITTA FRASER Jun 13, 2016 09:30
[2016-06-13 11:55] VITALS: BP 130/72
[2016-06-13 16:00] VITALS: BP 103/60
[2016-06-13 20:00] VITALS: BP 152/76
[2016-06-13] MEDS: Tylenol #3 tab (300mg/30mg) ORAL PRN (20:09)
--- NOTE | 2016-06-13 23:05 | Nephrology Progress Note ---
Assessment/Plan Problem List: (1) ESRD (end stage renal disease) on dialysis (2) DM (diabetes mellitus) (3) Hypertension (4) Failure to thrive in adult (5) Fluid overload (6) Generalized weakness (7) Dyspnea (8) Weakness Plan HD as scheduled. MOnitor labs. Monitor BP. PT/OT. Subjective Subjective dialyzed yest. BP stable. Objective Objective Last 24 Hour Vital Signs Date Time Temp Pulse Resp B/P Pulse Ox O2 Delivery O2 Flow Rate FiO2 06/13/16 20:24 65 152/76 06/13/16 20:00 97.0 63 18 152/76 96 Room Air 06/13/16 19:26 91 18 Nasal Cannula 2.0 28 06/13/16 16:00 103/60 06/13/16 16:00 97.9 61 18 103/60 Nasal Cannula 2.0 95 06/13/16 12:00 60 06/13/16 11:55 97.0 66 18 130/72 96 Nasal Cannula 2.0 06/13/16 08:21 97.2 66 18 119/68 97 Nasal Cannula 2.0 06/13/16 08:00 65 06/13/16 08:00 94/59 06/13/16 06:00 108/57 06/13/16 04:25 97.9 78 20 94/59 96 Room Air 06/13/16 04:00 81 06/13/16 00:20 97.0 61 20 122/67 96 Nasal Cannula 2.0 06/13/16 00:11 122/74 06/13/16 00:11 122/74 06/13/16 00:00 83 Intake and Output 06/12/16 06/13/16 19:00 07:00 Intake Total 30 ml 280 ml Output Total 2600 ml Balance -2570 ml 280 ml Intake Oral 30 ml 280 ml Output Hemodialysis UF 2600 ml # Voids 1 # Bowel Movements 2 Laboratory Tests 06/13/16 07:20: White Blood Count 3.5L, Red Blood Count 2.98L, Hemoglobin 9.8L, Hematocrit 30.0L , Mean Corpuscular Volume 101H, Mean Corpuscular Hemoglobin 32.8H, Mean Corpuscular Hemoglobin Concent 32.6, Red Cell Distribution Width 18.9H, Platelet Count 159, Mean Platelet Volume 7.7, Neutrophils (%) (Auto) 62.8, Lymphocytes (%) (Auto) 22.8, Monocytes (%) (Auto) 10.2H, Eosinophils (%) (Auto) 2.8, Basophils (%) (Auto) 1.4, Sodium Level 140, Potassium Level 4.9, Chloride Level 93L, Carbon Dioxide Level 32H, Anion Gap 15, Blood Urea Nitrogen 19, Creatinine 5.2H, Estimat Glomerular Filtration Rate 9.9, Glucose Level 100, Calcium Level 9.8, Troponin I < 0.30, Pro-B-Type Natriuretic Peptide 33385M, Triglycerides Level [Pending], Cholesterol Level [Pending], LDL Cholesterol [ Pending], HDL Cholesterol [Pending], Cholesterol/HDL Ratio [Pending] Height (Feet): 5 Height (Inches): 3.00 Weight (Pounds): 120 General Appearance: no apparent distress Cardiovascular: normal rate, regular rhythm Respiratory/Chest: lungs clear Abdomen: non tender, soft FRANCISCO J CRANDALL Jun 13, 2016 23:05
[2016-06-14] VITALS: BP 116/65
[2016-06-14] MEDS: HydrALAZINE 50mg tab ORAL SCH ×3 (00:52→16:00)
[2016-06-14 04:00] VITALS: BP 134/70
[2016-06-14] MEDS: NovoLOG Insulin Flexpen SUBQ SCH ×4 (05:55→21:00)
[2016-06-14 08:12] VITALS: BP 126/62
[2016-06-14] MEDS: Heparin 5000 units/ml inj SUBQ SCH ×4 (09:00→22:13)
[2016-06-14] MEDS: Aspirin EC 81mg tab ORAL SCH (09:34)
[2016-06-14] MEDS: Renagel 400mg cap ORAL SCH ×3 (09:34→18:00)
[2016-06-14 12:01] VITALS: BP 125/68
[2016-06-14 14:44] LABS: CHOLESTEROL/HDL RATIO 2.5 (3.3-4.4)
[2016-06-14 16:00] VITALS: BP 116/68
--- NOTE | 2016-06-14 17:25 | Cardiac Electrophysiology PN ---
Assessment/Plan Assessment/Plan 1. Congestive heart failure due to diastolic dysfunction due to hypertensive heart disease. On hemodialysis. Echo EF 65% on 05/24/2016 2. Accelerated hypertension.Better on Norvasc 10 mg daily, Lopressor 50 mg BID and hydralazine 50 mg three times daily. 3. End-stage renal disease, on hemodialysis. 4. Right arm edema. 5. Anemia secondary to renal failure and anemia of chronic disease. YULI RN Subjective Subjective Just completed dialysis. On tele with no events. Objective Last 24 Hour Vital Signs Date Time Temp Pulse Resp B/P Pulse Ox O2 Delivery O2 Flow Rate FiO2 06/14/16 16:20 Room Air 06/14/16 16:00 97.5 63 19 116/68 96 Room Air 06/14/16 12:30 Room Air 2.0 28 06/14/16 12:01 97.0 67 18 125/68 99 Nasal Cannula 2.0 06/14/16 11:54 58 06/14/16 09:34 64 126/62 06/14/16 09:34 64 126/62 06/14/16 09:33 126/62 06/14/16 08:12 97.0 64 18 126/62 100 Nasal Cannula 2.0 06/14/16 08:01 62 06/14/16 04:00 60 06/14/16 04:00 98.1 64 16 134/70 98 Nasal Cannula 2.0 06/14/16 00:52 116/65 06/14/16 00:00 97.0 60 16 116/65 98 Nasal Cannula 2.0 06/14/16 00:00 58 06/13/16 20:24 65 152/76 06/13/16 20:00 63 06/13/16 20:00 97.0 63 18 152/76 96 Room Air 06/13/16 19:26 91 18 Nasal Cannula 2.0 28 Intake and Output 06/13/16 06/14/16 19:00 07:00 Intake Total 120 ml 120 ml Balance 120 ml 120 ml Intake Oral 120 ml 120 ml Objective HEAD AND NECK: Showed no JVD. LUNGS: Decreased breath sounds. CARDIOVASCULAR: Shows regular S1 and S2 with soft systolic murmur. ABDOMEN: Soft. EXTREMITIES: Left arm AV fistula present BRITTA FRASER Jun 14, 2016 17:25
[2016-06-14] MEDS: Tylenol #3 tab (300mg/30mg) ORAL PRN (18:01)
--- NOTE | 2016-06-14 19:46 | Nephrology Progress Note ---
Assessment/Plan Problem List: (1) Congestive heart failure (CHF) (2) Dyspnea (3) Arrhythmia (4) ESRD (end stage renal disease) on dialysis (5) Hypertension (6) Generalized weakness (7) Anemia in chronic kidney disease (CKD) (8) Fluid overload Plan H&P dictated # [id number] Objective Objective Last 24 Hour Vital Signs Date Time Temp Pulse Resp B/P Pulse Ox O2 Delivery O2 Flow Rate FiO2 06/14/16 16:20 Room Air 06/14/16 16:00 116/68 06/14/16 16:00 97.5 63 19 116/68 96 Room Air 06/14/16 12:30 Room Air 2.0 28 06/14/16 12:01 97.0 67 18 125/68 99 Nasal Cannula 2.0 06/14/16 11:54 58 06/14/16 09:34 64 126/62 06/14/16 09:34 64 126/62 06/14/16 09:33 126/62 06/14/16 08:12 97.0 64 18 126/62 100 Nasal Cannula 2.0 06/14/16 08:01 62 06/14/16 04:00 60 06/14/16 04:00 98.1 64 16 134/70 98 Nasal Cannula 2.0 06/14/16 00:52 116/65 06/14/16 00:00 97.0 60 16 116/65 98 Nasal Cannula 2.0 06/14/16 00:00 58 06/13/16 20:24 65 152/76 06/13/16 20:00 63 06/13/16 20:00 97.0 63 18 152/76 96 Room Air Intake and Output 06/13/16 06/14/16 19:00 07:00 Intake Total 120 ml 120 ml Balance 120 ml 120 ml Intake Oral 120 ml 120 ml Height (Feet): 5 Height (Inches): 3.00 Weight (Pounds): 120 Faith Bianchi N.P. Jun 14, 2016 19:46
[2016-06-14 20:00] VITALS: BP 117/51
[2016-06-15] VITALS: BP 132/59
[2016-06-15] MEDS: HydrALAZINE 50mg tab ORAL SCH ×2 (00:10→09:12)
[2016-06-15 01:14] VITALS: BP 132/59
[2016-06-15 04:00] VITALS: BP 125/59
[2016-06-15] MEDS: NovoLOG Insulin Flexpen SUBQ SCH ×2 (05:47→11:30)
[2016-06-15 08:04] LABS: BASOPHILS % (AUTO) 0.9 % (0.0-2.0); LYMPHOCYTES % (AUTO) 20.7 % (20.0-45.0); MEAN CORPUSCULAR HEMOGLOBIN 30.5 PG (27.0-31.0); MEAN CORPUSCULAR HGB CONC 30.2 G/DL (32.0-36.0); MEAN CORPUSCULAR VOLUME 101 FL (80-99); MEAN PLATELET VOLUME 7.4 FL (6.5-10.1); MONOCYTES % (AUTO) 12.2 % (1.0-10.0); NEUTROPHILS % (AUTO) 64.2 % (45.0-75.0); PLATELET COUNT 164 K/UL (150-450); RED BLOOD COUNT 3.27 M/UL (4.20-5.40); RED CELL DISTRIBUTION WIDTH 18.9 % (11.6-14.8); WHITE BLOOD COUNT 3.9 K/UL (4.8-10.8)
[2016-06-15 08:21] VITALS: BP 105/71
[2016-06-15 08:54] LABS: CALCIUM 9.8 mg/dL (8.6-10.2); CREATININE 4.9 mg/dL (0.5-0.9); GLOMERULAR FILTRATION RATE 10.7 mL/min (>60); POTASSIUM 3.8 mEQ/L (3.4-4.9)
[2016-06-15] MEDS: Heparin 5000 units/ml inj SUBQ SCH (09:00)
[2016-06-15 09:09] VITALS: BP 121/60
[2016-06-15] MEDS: Aspirin EC 81mg tab ORAL SCH (09:12)
[2016-06-15] MEDS: Renagel 400mg cap ORAL SCH ×2 (09:12→13:49)
[2016-06-15 11:58] VITALS: BP 117/56
--- NOTE | 2016-06-16 01:47 | Progress Note ---
DATE: 06/15/2016 SUBJECTIVE: This is a 70-year-old white female, who came to the emergency room for short of breath, end-stage renal disease, fluid overload, and CHF. PAST MEDICAL HISTORY: Chronic renal insufficiency, hypertension, and overweight. ALLERGIES: NKDA. MEDICATIONS: See the list. OBJECTIVE: GENERAL: This is an elderly female, who is currently awake and comfortable. VITAL SIGNS: Blood pressure 150/90, pulse 50 , and respirations 18. No fever. SKIN: Good skin turgor. HEENT: AT/NC. EOMI. PERRLA. NECK: Supple. No JVD. CHEST: Bilaterally decreased breath sounds. LUNGS: Scattered wheezing and crackles. CARDIOVASCULAR: Regular rhythm. Tachycardic. ABDOMEN: Soft. EXTREMITIES: CCE. NEUROLOGICAL: Nonverbal and bedridden. ASSESSMENT AND PLAN: 1. Congestive heart failure. 2. Fluid overload. 3. Chronic renal failure. 4. Hypertension. PLAN: We will admit and continue telebed increase Lasix. Bronchodilator treatment. Consider GI consult. Check labs. Tirso Crow M.D. DR: DARION JOB#: [id number] CC:
--- NOTE | 2016-06-16 17:45 | Discharge Summary ---
Discharge Summary Hospital Course Date of Admission Jun 11, 2016 at 23:48 Date of Discharge Jun 15, 2016 at 15:35 Admitting Diagnosis Fluid overloaded HPI Palmira Sav Umesh Keen is a 70 year old female who was admitted on Jun 11, 2016 at 23:48 for Fluid Overload Hospital Course [id number] Discharge Discharge Disposition Patient was discharged to Home (01) Discharge Diagnoses: Nora Wills NP Jun 16, 2016 17:45
--- NOTE | 2016-06-17 02:17 | Discharge Summary 2 SIG ---
DATE OF ADMISSION: 06/11/2016 DATE OF DISCHARGE: 06/15/2016 [employer] DEVELOPER: Sharath Burdick M.D. BRIEF HOSPITAL COURSE: The patient is a 70-year-old female, who was admitted for shortness of breath. She was at home and started to feel her heart beat a little faster and stated that she was weak and unable to get out of bed. She called the paramedics and was taken to ED where on evaluation, chest x-ray showed no acute process[place] [address]. Creatinine was 7.3. Dr. Burdick was consulted for management of hypertension and congestive heart failure. Blood pressure was 189/86 on admission. The patient has congestive heart failure due to diastolic dysfunction and this is due to hypertensive heart disease. Blood pressure was treated with Norvasc, Lopressor, clonidine, hydralazine and was added p.r.n. clonidine. She received inpatient hemodialysis and the patient received physical therapy and occupational therapy. The patient was eventually discharged home. FINAL DIAGNOSES: 1. Acute on chronic diastolic congestive heart failure secondary to hypertensive heart disease. 2. End-stage renal disease, on hemodialysis. 3. Hypertension. 4. Anemia of chronic disease. 5. Anemia of kidney disease. 6. Fluid overload. 7. Accelerated hypertension. Gianni Thompson M.D. I have been assigned to dictate discharge summary on this account and I was not involved in the patient's management. Nora Wills N.P. DR: BROOKLYNN JOB#: [id number] CC: NIKOLAS
== END 2016-06-15 15:35 | disposition home or self-care (01) | DRG 291 ==
LOC: ENRESERVTM → ENRESERV → ENRESERVDT → EDBD 21:52 → EMR 22:08 → 2E 23:48 → EDBEDREQ 06-12 06:04 → 2E 06-14 22:26
PROC: 5A1D60Z (ICD-10-PCS; principal; 2016-06-12)
DX: I13.2 Hypertensive heart and chronic kidney disease with heart failure and with stage 5 chronic kidney disease, or end stage renal disease (principal); N18.6 End stage renal disease; E11.8 Type 2 diabetes mellitus with unspecified complications; D69.6 Thrombocytopenia, unspecified; E87.79 Other fluid overload; I50.33 Acute on chronic diastolic (congestive) heart failure; D63.1 Anemia in chronic kidney disease; Z99.2 Dependence on renal dialysis; Z86.73 Personal history of transient ischemic attack (TIA), and cerebral infarction without residual deficits
CPT/HCPCS: 36415; 71010; 80048; 80053; 80061; 82550; 82553; 82962; 83880; 84484; 85025; 85379; 87081; 93005; 94664; J1815; J2405

== ENCOUNTER 2016-11-21 16:36 | Emergency (ER) | payer MEDICARE, MEDICAID ==
[~2016-11-21] VITALS: Ht 157.5 cm; Wt 49.9 kg
[2016-11-21 16:45] VITALS: BP 173/74
[2016-11-21] MEDS ORDERED: LORATADINE10 M1 PO (16:58)
[2016-11-21] MEDS ORDERED: CLOPIDOGREL75 MG ORAL (16:58)
[2016-11-21] MEDS ORDERED: ACETAMINOPHEN-1 EAC1 ORAL (16:58)
[2016-11-21] MEDS ORDERED: JANUVIA25 MG ORAL (16:58)
[2016-11-21] MEDS ORDERED: ZANTAC150 MG ORAL (16:58)
[2016-11-21] MEDS ORDERED: DIOVAN80 MG ORAL (16:58)
[2016-11-21 17:59] LABS: INR 1.3 (0.9-1.1)
[2016-11-21 18:07] LABS: BASOPHILS % (AUTO) 1.7 % (0.0-2.0); EOSINOPHILS % (AUTO) 2.2 % (0.0-3.0); LYMPHOCYTES % (AUTO) 16.2 % (20.0-45.0); MEAN CORPUSCULAR HGB CONC 31.7 G/DL (32.0-36.0); MEAN CORPUSCULAR VOLUME 101 FL (80-99); MEAN PLATELET VOLUME 8.1 FL (6.5-10.1); MONOCYTES % (AUTO) 11.3 % (1.0-10.0); NEUTROPHILS % (AUTO) 68.6 % (45.0-75.0); PLATELET COUNT 134 K/UL (150-450); RED BLOOD COUNT 3.99 M/UL (4.20-5.40); RED CELL DISTRIBUTION WIDTH 15.6 % (11.6-14.8); WHITE BLOOD COUNT 4.1 K/UL (4.8-10.8)
[2016-11-21 18:10] LABS: ALANINE AMINOTRANSFERASE 18 U/L (3-33); ALBUMIN/GLOBULIN RATIO 1.1 (1.0-2.7); ANION GAP 18 (5-15); ASPARTATE AMINO TRANSFERASE 28 U/L (5-40); CALCIUM 10.6 mg/dL (8.6-10.2); CARBON DIOXIDE 24 mEQ/L (20-30); CHLORIDE 99 mEQ/L (98-107); CREATININE 4.1 mg/dL (0.5-0.9); HEMOLYSIS 51; POTASSIUM 4.9 mEQ/L (3.4-4.9); SODIUM 141 mEQ/L (135-145); TOTAL PROTEIN 8.3 g/dL (6.6-8.7); TROPONIN I < 0.30 ng/mL (<=0.30)
[2016-11-21 18:20] LABS: CKMB 2.5 ng/mL (< 3.8)
[2016-11-21] MEDS ORDERED: Morphine Sulfate 4mg/ml Inj IM ONE (18:30)
[2016-11-21] MEDS ORDERED: Morphine Sulfate 4mg/ml Inj IVP ONE (19:45)
[2016-11-21 20:04] VITALS: BP 188/91
--- NOTE | 2016-11-21 20:25 | Emergency Room Report ---
History of Present Illness General Chief Complaint: Multiple Trauma/Fall Source: Patient Present Illness HPI 71-year-old female presents to ED for evaluation. Per EMS patient has significant facial swelling status post fall. Patient had dialysis today and went home. After dialysis she felt weak and fell hitting her head on a chair. Denies LOC. Patient presents with significant swelling and ecchymosis over the left eye. Pain 10 out of 10. Sharp. Nonradiating. Unable to open her left eye because of swelling. Denies chest pain or shortness of breath. No other aggravating or relieving factors. Denies any other associated symptoms Allergies: Coded Allergies: No Known Allergies (Verified , 05/25/09) Patient History Past Medical History: DM, HTN, CAD, renal disease, dialysis Past Surgical History: none Pertinent Family History: none Social History: Denies: alcohol use, drug use, smoking Now: No Immunizations: UTD Reviewed Nursing Documentation: PMH: Agreed, PSxH: Agreed Nursing Documentation-PMH Hx Cardiac Problems: Yes - Acute coronary syndrome Hx Hypertension: Yes Hx Pacemaker: No Hx Asthma: No Hx COPD: No Hx Diabetes: Yes Hx Cancer: Yes Hx Gastrointestinal Problems: Yes Hx Dialysis: Yes - Done today 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 unable to open L eye Eyes: right eye EOMI, right eye PERRL, right eye normal inspection ENT: hearing grossly normal, normal pharynx, no angioedema, normal voice Neck: normal inspection Respiratory: chest non-tender, lungs clear, normal breath sounds, speaking full sentences Cardiovascular #1: regular rate, rhythm, no edema Gastrointestinal: normal inspection Rectal: deferred Genitourinary: no CVA tenderness Musculoskeletal: normal inspection Neurologic: alert, oriented x3, responsive, motor strength/tone normal, sensory intact, speech normal Psychiatric: normal inspection Skin: normal inspection Lymphatic: normal inspection Medical Decision Making Diagnostic Impression: Primary Impression: Head injury Qualified Codes: S09.90XA - Unspecified injury of head, initial encounter Additional Impressions: Periorbital hematoma of left eye Hypertension Qualified Codes: I10 - Essential (primary) hypertension ESRD (end stage renal disease) on dialysis ER Course Hospital Course 71-year-old female presents to ED with significant swelling over the left eye status post dizziness and fall Differential diagnoses include: [place]/unstable angina, arrythmia, dehydration, CVA/ TIA Clinical course 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 After initial history and physical I ordered labs, EKG, chest x-ray, CT Brain, CT Facial bones labs reviewed- no leukocytosis, hemoglobin/hematocrit ok, BUN/Cr elevated, troponins negative EKG-NSR no acute changes interpretd by me Chest x-ray- no acute process, cardiomegaly CT brain-unremarkable, CT Facial Bones - signoficant periorbital swellign/ hematoma, no fx Patient had difficult IV access. Peripheral EJ line placed by myself Hematoma is expanding over the left eye. Patient is not on blood thinners. I am unable to properly assess the left eye as it is swollen shut. I believe patient will require transfer for trauma evaluation and observation patient will be transferred to [facility]. I feel this is a highly complex case requiring extensive working including EKG/Rhythm strip, Xray/CT/US, Blood/urine lab work, repeat exams while in ED, and administration of strong opiates/narcotics for pain control, admission to hospital or close patient follow up. Diagnosis - head injury, periorbital hematoma of left eye, hypertensio, ESRD on dialysis Transferred in serious condition Labs Test 11/21/16 17:39 White Blood Count 4.1 K/UL (4.8-10.8) Red Blood Count 3.99 M/UL (4.20-5.40) Hemoglobin 12.8 G/DL (12.0-16.0) Hematocrit 40.3 % (37.0-47.0) Mean Corpuscular Volume 101 FL (80-99) Mean Corpuscular Hemoglobin 32.0 PG (27.0-31.0) Mean Corpuscular Hemoglobin Concent 31.7 G/DL (32.0-36.0) Red Cell Distribution Width 15.6 % (11.6-14.8) Platelet Count 134 K/UL (150-450) Mean Platelet Volume 8.1 FL (6.5-10.1) Neutrophils (%) (Auto) 68.6 % (45.0-75.0) Lymphocytes (%) (Auto) 16.2 % (20.0-45.0) Monocytes (%) (Auto) 11.3 % (1.0-10.0) Eosinophils (%) (Auto) 2.2 % (0.0-3.0) Basophils (%) (Auto) 1.7 % (0.0-2.0) Prothrombin Time 14.0 SEC (9.30-11.50) Prothromb Time International Ratio 1.3 (0.9-1.1) Activated Partial Thromboplast Time 31 SEC (23-33) Sodium Level 141 mEQ/L (135-145) Potassium Level 4.9 mEQ/L (3.4-4.9) Chloride Level 99 mEQ/L (98-107) Carbon Dioxide Level 24 mEQ/L (20-30) Anion Gap 18 (5-15) Blood Urea Nitrogen 27 mg/dL (7-23) Creatinine 4.1 mg/dL (0.5-0.9) Estimat Glomerular Filtration Rate mL/min (>60) Glucose Level 98 mg/dL (74-106) Calcium Level 10.6 mg/dL (8.6-10.2) Total Bilirubin 0.6 mg/dL (0.0-1.2) Aspartate Amino Transf (AST/SGOT) 28 U/L (5-40) Alanine Aminotransferase (ALT/SGPT) 18 U/L (3-33) Alkaline Phosphatase 87 U/L (35-104) Total Creatine Kinase 66 U/L (26-140) Creatine Kinase MB 2.5 ng/mL (< 3.8) Creatine Kinase MB Relative Index 3.7 Troponin I < 0.30 ng/mL (<=0.30) Total Protein 8.3 g/dL (6.6-8.7) Albumin 4.4 g/dL (3.5-5.2) Globulin 3.9 g/dL Albumin/Globulin Ratio 1.1 (1.0-2.7) EKG Diagnostic Results Rate: normal Rhythm: NSR ST Segments: no acute changes ASA given to the pt in ED: No Rhythm Strip Diag. Results EP Interpretation: yes Rhythm: NSR, no PVC's, no ectopy Chest X-Ray Diagnostic Results Chest X-Ray Diagnostic Results : Chest X-Ray Ordered: Yes # of Views/Limited/Complete: 1 View Indication: Other - syncope EP Interpretation: Yes Interpretation: no consolidation, no effusion, no pneumothorax, no acute cardiopulmonary disease, other - cardiomegaly Impression: No acute disease Interpreting ER Provider: electronically signed by Ephraim Schmidt MD CT/MRI/US Diagnostic Results CT/MRI/US Diagnostic Results #1: Imaging Test Ordered: CT Head Impression no acute process CT/MRI/US Diagnostic Results #2: Imaging Test Ordered: CT Facial Bone Impression no fx. significant periorbital swelling Last Vital Signs Date Time Temp Pulse Resp B/P Pulse Ox O2 Delivery O2 Flow Rate FiO2 11/21/16 20:04 98.2 101 14 188/91 100 Room Air Status: improved Disposition: [facility] Condition: Serious Referrals: FRANCISCO J CRANDALL (PCP) EPHRAIM SCHMIDT M.D. Nov 21, 2016 20:25
[2016-11-21 20:40] VITALS: BP 176/85
[2016-11-21 21:11] VITALS: BP 176/85
--- NOTE | 2016-11-22 08:41 | Diagnostic Imaging Report ---
Indications: Pain, status post fall, low orbital trauma Technique: Spiral acquisitions obtained through the brain. Angled axial and coronal 5 x 5 mm slices were reconstructed. Total dose length product 1354 mGycm. CTDI vol(s) 70 mGy. Dose reduction achieved using automated exposure control Comparison: 10/20/2014 Findings: Is large sterile hematoma on the left. No acute hemorrhage or edema. No mass effect nor midline shift. There is mild age-related enlargement of the ventricles and extra-axial CSF spaces. There is considerable periventricular deep white matter chronic ischemic change. Otherwise normal granger-white differentiation. Visualized orbits and sinuses are unremarkable. Intact calvarium. There is extensive mastoid opacification on the right again demonstrated. Impression: Evidence of left periorbital soft tissue injury Negative for acute intracranial bleed or mass effect Chronic and age-related changes, as described Right-sided mastoid disease This agrees with the preliminary interpretation provided overnight by Dr. Todd The CT scanner at [facility] is accredited by the [employer] and the scans are performed using protocols designed to limit radiation exposure to as low as reasonably achievable to attain images of sufficient resolution adequate for diagnostic evaluation.
--- NOTE | 2016-11-22 08:46 | Diagnostic Imaging Report ---
Indication: Pain, right orbital trauma status post fall Technique: Spiral acquisitions obtained through the facial bones Multiplanar reconstructions were generated. Total dose length product 583 mGycm. CTDIvol(s) 28 mGy. Radiation dose was minimized using automated exposure control Comparison: None Findings: There is some image degradation due to motion artifact. There is symmetrical anterior subluxation of the femoral heads out of the glenoid fossae. This may be due to the patient's not being open. There is a large complex left facial soft tissue hematoma, with the largest component measuring 3 cm diameter, centered in the infrahilar region, and a second component in the malar and periorbital region which is more diffuse, measures approximately 3.6 cm in diameter. There is also considerable soft tissue ecchymosis. No underlying fracture demonstrated. The nasal septum is intact. The sinuses are clear. The patient is edentulous. There is chronic mastoid disease on the right. The optic globes and retroseptal orbits are intact. Impression: No acute bony trauma Extensive left facial hematoma Anterior displacement of the mandibular heads, most likely physiologic due to open-mouth position but subluxation/dislocation not excludable. Correlate with clinical findings Chronic right mastoid disease, also previously reported This agrees with the preliminary interpretation provided overnight by Dr. Todd The CT scanner at [facility] is accredited by the [employer] and the scans are performed using protocols designed to limit radiation exposure to as low as reasonably achievable to attain images of sufficient resolution adequate for diagnostic evaluation.
--- NOTE | 2016-11-22 10:46 | Diagnostic Imaging Report ---
Indication: SYNCOPE, pain status post fall Technique: One view of the chest Comparison: 06/01/2016 Findings: The heart is enlarged. There is a right innominate vein stent again demonstrated. The the extreme portion of this appears somewhat compressed. The lungs and pleural spaces are otherwise clear. There are cholecystectomy clips. There are right arm surgical clips. Impression: Cardiomegaly No acute process Other findings as described
--- NOTE | 2016-11-22 16:53 | Cardiology Report ---
APPROVED REPORT EKG Measurement Heart [id number] Normal sinus rhythm Prolonged QT Abnormal ECG
== END 2016-11-21 21:12 | disposition short-term general hospital (02) ==
LOC: EDBD 16:36 → EDUNIT# 16:36 → EMR 17:39
DX: S09.90XA Unspecified injury of head, initial encounter (principal); S05.12XA Contusion of eyeball and orbital tissues, left eye, initial encounter; I12.0 Hypertensive chronic kidney disease with stage 5 chronic kidney disease or end stage renal disease; E11.22 Type 2 diabetes mellitus with diabetic chronic kidney disease; N18.6 End stage renal disease; Z99.2 Dependence on renal dialysis; G51.0 Bell's palsy; Z86.73 Personal history of transient ischemic attack (TIA), and cerebral infarction without residual deficits; I25.10 Atherosclerotic heart disease of native coronary artery without angina pectoris; W01.190A Fall on same level from slipping, tripping and stumbling with subsequent striking against furniture, initial encounter; Y92.009 Unspecified place in unspecified non-institutional (private) residence as the place of occurrence of the external cause
CPT/HCPCS: 36415; 70450; 70486; 71010; 80053; 82550; 82553; 84484; 85025; 85610; 85730; 93005; 96372; 96374; 96375; 99285; J2270; J2405